=== PATIENT | male | born 1960 | race African-American/Black ===

== ENCOUNTER 2016-07-24 17:58 | Observation (INO) | payer OTHER ==
[~2016-07-24] VITALS: Ht 175.3 cm; Wt 88.5 kg
[~2016-07-24 17:58] MED LIST: ASPIR 8181 MG ORAL; AUGMENTIN 875-1 EAC1 ORAL; IBUPROFEN600 MG ORAL; INSULIN SUBQ; LISINOPRIL10 MG ORAL; METFORMIN HCL1000 M1 ORAL; RANITIDINE HCL150 MG ORAL; ZOFRAN ODT4 MG ORAL
[2016-07-24] MEDS ORDERED: Famotidine 20 MG/ 2ML VIAL IVP ONE (18:15)
[2016-07-24 18:52] LABS: BASOPHILS % (AUTO) 1.9 % (0.0-2.0); EOSINOPHILS % (AUTO) 1.8 % (0.0-3.0); LYMPHOCYTES % (AUTO) 34.1 % (20.0-45.0); MEAN CORPUSCULAR HEMOGLOBIN 25.4 PG (27.0-31.0); MEAN CORPUSCULAR HGB CONC 31.3 G/DL (32.0-36.0); MEAN CORPUSCULAR VOLUME 81 FL (80-99); MONOCYTES % (AUTO) 8.8 % (1.0-10.0); NEUTROPHILS % (AUTO) 53.4 % (45.0-75.0); PLATELET COUNT 317 K/UL (150-450); RED BLOOD COUNT 6.18 M/UL (4.70-6.10); RED CELL DISTRIBUTION WIDTH 13.1 % (11.6-14.8); WHITE BLOOD COUNT 8.8 K/UL (4.8-10.8)
[2016-07-24 18:53] LABS: APPEARANCE,URINE CLEAR; KETONES,URINE 3+ (NEGATIVE); LEUKOCYTE ESTERASE ,URINE NEGATIVE (NEGATIVE); NITRITE,URINE NEGATIVE (NEGATIVE); PH,URINE 6 (4.5-8.0); PROTEIN,URINE NEGATIVE (NEGATIVE); UROBILINOGEN,URINE NORMAL MG/DL (0.0-1.0)
[2016-07-24 19:17] LABS: TROPONIN I < 0.30 ng/mL (<=0.30)
[2016-07-24 19:21] LABS: ALANINE AMINOTRANSFERASE 10 U/L (3-41); ALBUMIN/GLOBULIN RATIO 0.9 (1.0-2.7); ANION GAP 22 (5-15); ASPARTATE AMINO TRANSFERASE 12 U/L (5-40); CARBON DIOXIDE 20 mEQ/L (20-30); CHLORIDE 90 mEQ/L (98-107); GLOMERULAR FILTRATION RATE > 60 mL/min (>60); HEMOLYSIS 18; LIPASE 26 U/L (< 60); POTASSIUM 3.9 mEQ/L (3.4-4.9); SODIUM 132 mEQ/L (135-145); TOTAL PROTEIN 8.2 g/dL (6.6-8.7)
[2016-07-24 19:34] VITALS: BP 127/93
[2016-07-24] MEDS ORDERED: SIMVASTATIN10 MG ORAL (19:40)
[2016-07-24] MEDS ORDERED: GLIPIZIDE5 MG ORAL (19:40)
--- NOTE | 2016-07-24 19:53 | Emergency Room Report ---
History of Present Illness General Chief Complaint: Abdominal Pain Source: Patient Present Illness HPI [id number] with IDDM presents with 1 week abd pain, nausea. Denies fever/chills, diarrhea. Didnt take QHS Insulin "because I didnt feel good." Denies urinary complaints, frequency. Per EMR, previous admits for DKA. Allergies: Coded Allergies: No Known Allergies (Verified Allergy, Unknown, 01/08/07) Patient History Past Medical History: DM Past Surgical History: none Pertinent Family History: none Social History: Denies: alcohol use, drug use, smoking Immunizations: UTD Reviewed Nursing Documentation: PMH: Agreed, PSxH: Agreed Nursing Documentation-PMH Past Medical History: No History, Except For Hx Hypertension: Yes Hx Diabetes: Yes - DM2 Review of Systems All Other Systems: negative except mentioned in HPI Physical Exam Vital Signs Date Time Temp Pulse Resp B/P Pulse Ox O2 Delivery O2 Flow Rate FiO2 07/24/16 18:10 98.8 117 15 125/106 99 Room Air Sp02 EP Interpretation: normal, abnormal General Appearance: normal inspection, well appearing, no apparent distress, alert, GCS 15, non-toxic Head: normocephalic, atraumatic Eyes: bilateral eye EOMI, bilateral eye PERRL ENT: normal ENT inspection, hearing grossly normal, normal voice Neck: normal inspection, full range of motion, supple, no bony tend Respiratory: normal inspection, lungs clear, normal breath sounds, no respiratory distress, no retraction, no wheezing Cardiovascular #1: regular rate, rhythm, no edema Gastrointestinal: normal inspection, normal bowel sounds, soft, no guarding, no hernia, other - RUQ ttp Genitourinary: no CVA tenderness Musculoskeletal: normal inspection, back normal, normal range of motion, Priscila' s Sign negative Neurologic: normal inspection, alert, oriented x3, responsive, 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 H&H stable. Elevated glucose with AG. ABG not-acidodic. Given history of DKA in the past will start with insulin gtt and IVF. However, glucose now 250 on insulin gtt and IVF. Will stop drip and admit to tele. CTAP: no acute pathology. Patient feels much better. Just minor epi pain. Endorsed to Dr Grewal and ETTA Marcelo at 919pm for med/surg admission. EKG Diagnostic Results Rate: tachycardiac, other - Multiple PVCs Rhythm: NSR ST Segments: no acute changes Rhythm Strip Diag. Results EP Interpretation: yes Rate: 97 Chest X-Ray Diagnostic Results EP Interpretation: Yes Findings: no consolidation, no effusion, no pneumothorax, no acute cardiopulmonary disease Number of Views: 1 Last Vital Signs Date Time Temp Pulse Resp B/P Pulse Ox O2 Delivery O2 Flow Rate FiO2 07/24/16 19:34 98.9 110 17 127/93 97 Room Air Status: improved Disposition: ADMITTED INPATIENT Condition: Serious Referrals: [facility],REFERRING (PCP) ALYSSA LUNA M.D. Jul 24, 2016 19:53
[2016-07-24 20:31] LABS: ABG ALLEN TEST POSITIVE; ABG BASE EXCESS -1.7; ABG PCO2 33.1 mmHg (35.0-45.0)
[2016-07-24 21:02] VITALS: BP 123/102
[2016-07-24] MEDS ORDERED: Morphine Sulfate 2mg/ml Inj IVP PRN (21:45)
[2016-07-24 22:19] LABS: ANION GAP 18 (5-15); CALCIUM 8.7 mg/dL (8.6-10.2); CARBON DIOXIDE 22 mEQ/L (20-30); CHLORIDE 95 mEQ/L (98-107); CREATININE 0.8 mg/dL (0.7-1.2); GLOMERULAR FILTRATION RATE > 60 mL/min (>60); HEMOLYSIS 0; POTASSIUM 3.8 mEQ/L (3.4-4.9); SODIUM 135 mEQ/L (135-145)
[2016-07-24] MEDS: Pantoprazole Inj IVP SCH (23:40)
[2016-07-24 23:59] VITALS: BP 125/85
[2016-07-25 01:55] VITALS: BP 134/79
[2016-07-25 04:00] VITALS: BP 138/79
[2016-07-25] MEDS ORDERED: metFORMIN 500mg tab ORAL SCH (06:30)
[2016-07-25] MEDS: NovoLOG Insulin Flexpen SUBQ SCH ×2 (07:21→12:15)
[2016-07-25 08:00] VITALS: BP 147/91
[2016-07-25] MEDS ORDERED: Aspirin EC 81mg tab ORAL SCH (09:00)
[2016-07-25] MEDS ORDERED: Lisinopril 10mg tab ORAL SCH (09:00)
[2016-07-25] MEDS ORDERED: Heparin 5000 units/ml inj SUBQ SCH (09:00)
--- NOTE | 2016-07-25 09:56 | Diagnostic Imaging Report ---
Indication: Abdominal pain Technique: CT of the abdomen and pelvis utilizing automated exposure control with intravenous contrast. Venous scanning performed. CT dose: Total DLP 970 mGycm; CTDI vol 17.7 mGy Comparison: 07/05/15 Findings: Lung bases are clear. The liver, adrenal glands, spleen and pancreas are unremarkable. No CT evident gallstones are identified. There is a stable small cyst in the right kidney. Atherosclerotic changes are present. There is limited evaluation of the bowel without oral contrast. There is no mechanical small obstruction. The appendix is normal. There is colonic diverticulosis without diverticulitis. There is a small fat-containing left inguinal hernia. The prostate is markedly enlarged measuring 6.7 x 5.8 cm. There is mild apparent thickening versus underdistention of the bladder wall. The osseous structures demonstrate no acute abnormality. Impression: Markedly enlarged prostate. Correlation with PSA recommended with further evaluation as indicated. Mild mural thickening versus underdistention of the bladder wall may be secondary to chronic outlet obstruction although cystitis not excluded and clinical correlation recommended. Colonic diverticulosis without diverticulitis. Other stable findings as above. The CT scanner at [facility] is accredited by the [employer] and the scans are performed using protocols designed to limit radiation exposure to as low as reasonably achievable to attain images of sufficient resolution adequate for diagnostic evaluation.
[2016-07-25 09:57] LABS: EOSINOPHILS % (AUTO) 2.9 % (0.0-3.0); LYMPHOCYTES % (AUTO) 33.9 % (20.0-45.0); MEAN CORPUSCULAR HEMOGLOBIN 25.3 PG (27.0-31.0); MEAN CORPUSCULAR VOLUME 82 FL (80-99); MEAN PLATELET VOLUME 9.6 FL (6.5-10.1); MONOCYTES % (AUTO) 11.5 % (1.0-10.0); NEUTROPHILS % (AUTO) 48.7 % (45.0-75.0); PLATELET COUNT 267 K/UL (150-450); RED BLOOD COUNT 5.26 M/UL (4.70-6.10); RED CELL DISTRIBUTION WIDTH 13.6 % (11.6-14.8); WHITE BLOOD COUNT 6.5 K/UL (4.8-10.8)
[2016-07-25] MEDS: Pantoprazole Inj IVP SCH (10:04)
[2016-07-25 10:20] LABS: ANION GAP 12 (5-15); CALCIUM 8.9 mg/dL (8.6-10.2); CARBON DIOXIDE 26 mEQ/L (20-30); CHLORIDE 98 mEQ/L (98-107); CREATININE 0.8 mg/dL (0.7-1.2); GLOMERULAR FILTRATION RATE > 60 mL/min (>60); HEMOLYSIS 1; POTASSIUM 3.9 mEQ/L (3.4-4.9); SODIUM 136 mEQ/L (135-145)
--- NOTE | 2016-07-25 10:20 | Diagnostic Imaging Report ---
Indication: Shortness of breath Technique: XRAY CHEST 1 V Comparison: 04/02/15 Findings: Cardiomediastinal silhouette is stable. There is no consolidation or pleural effusion. Osseous structures are stable. Clips are seen in the left neck. Impression: No acute cardiopulmonary disease.
[2016-07-25 12:00] VITALS: BP 144/93
[2016-07-25] MEDS ORDERED: Tubing IV Secondary IV ONE (12:59)
[2016-07-25] MEDS ORDERED: D5 1/2NS 1000ml IV ONE (12:59)
--- NOTE | 2016-07-25 15:25 | History and Physical ---
History of Present Illness General Date patient seen: Jul 25, 2016 Reason for Hospitalization: Abdominal Pain Present Illness Allergies: Coded Allergies: No Known Allergies (Verified Allergy, Unknown, 01/08/07) Medication History Scheduled Aspirin* (Aspir 81*), 81 MG ORAL DAILY, (Reported) Lisinopril* (Lisinopril*), 10 MG ORAL DAILY, (Reported) Metformin Hcl* (Metformin Hcl*), 1,000 MG ORAL BID, (Reported) Simvastatin (Zocor), 10 MG ORAL BEDTIME, (Reported) [Insulin], 34 SUBQ QHS, (Reported) Discontinued Medications Ondansetron Odt* (Zofran Odt*), 4 MG ORAL Q6H PRN for Nausea & Vomiting Discontinued Reason: Therapy completed Ranitidine Hcl* (Zantac*), 150 MG ORAL TWICE A DAY Discontinued Reason: Therapy completed Patient History Healthcare decision maker SELF, ESCUDERO,ERICA Resuscitation status Full Code Advanced Directive on File N/A Physical Exam Last 24 Hour Vital Signs Date Time Temp Pulse Resp B/P Pulse Ox O2 Delivery O2 Flow Rate FiO2 07/25/16 12:00 97.6 100 20 144/93 97 Room Air 07/25/16 09:00 147/91 07/25/16 08:00 97.0 86 21 147/91 99 Room Air 07/25/16 04:00 97.6 83 18 138/79 Room Air 07/25/16 01:55 97.3 86 20 134/79 98 Room Air 07/25/16 00:15 98.9 89 20 125/85 99 Room Air 07/24/16 23:59 98.9 89 20 125/85 99 Room Air 07/24/16 21:02 98.9 97 12 123/102 100 Room Air 07/24/16 19:34 98.9 110 17 127/93 97 Room Air 07/24/16 18:10 98.8 117 15 125/106 99 Room Air Intake and Output 07/24/16 07/25/16 19:00 07:00 Intake Total 1320 ml Balance 1320 ml Intake Oral 720 ml IV Total 600 ml # Voids 1 2 Laboratory Tests Test 07/24/16 18:28 07/24/16 18:55 07/24/16 19:26 07/24/16 21:21 White Blood Count 8.8 K/UL (4.8-10.8) Red Blood Count 6.18 M/UL (4.70-6.10) H Hemoglobin 15.7 G/DL (14.2-18.0) Hematocrit 50.2 % (42.0-52.0) Mean Corpuscular Volume 81 FL (80-99) Mean Corpuscular Hemoglobin 25.4 PG (27.0-31.0) L Mean Corpuscular Hemoglobin Concent 31.3 G/DL (32.0-36.0) L Red Cell Distribution Width 13.1 % (11.6-14.8) Platelet Count 317 K/UL (150-450) Mean Platelet Volume 9.0 FL (6.5-10.1) Neutrophils (%) (Auto) 53.4 % (45.0-75.0) Lymphocytes (%) (Auto) 34.1 % (20.0-45.0) Monocytes (%) (Auto) 8.8 % (1.0-10.0) Eosinophils (%) (Auto) 1.8 % (0.0-3.0) Basophils (%) (Auto) 1.9 % (0.0-2.0) Urine Color Pale yellow Urine Appearance Clear Urine pH 6 (4.5-8.0) Urine Specific [place] 1.015 (1.005-1.035) Urine Protein Negative (NEGATIVE) Urine Glucose (UA) 4+ (NEGATIVE) H Urine Ketones 3+ (NEGATIVE) H Urine Occult Blood Negative (NEGATIVE) Urine Nitrite Negative (NEGATIVE) Urine Bilirubin Negative (NEGATIVE) Urine Urobilinogen Normal MG/DL (0.0-1.0) Urine Leukocyte Esterase Negative (NEGATIVE) Sodium Level 132 mEQ/L (135-145) L 135 mEQ/L (135-145) Potassium Level 3.9 mEQ/L (3.4-4.9) 3.8 mEQ/L (3.4-4.9) Chloride Level 90 mEQ/L (98-107) L 95 mEQ/L (98-107) L Carbon Dioxide Level 20 mEQ/L (20-30) 22 mEQ/L (20-30) Anion Gap 22 (5-15) H 18 (5-15) H Blood Urea Nitrogen 14 mg/dL (7-23) 13 mg/dL (7-23) Creatinine 1.0 mg/dL (0.7-1.2) 0.8 mg/dL (0.7-1.2) Estimat Glomerular Filtration Rate > 60 mL/min (>60) > 60 mL/min (>60) Glucose Level 336 mg/dL (74-106) H 271 mg/dL (74-106) H Calcium Level 10.0 mg/dL (8.6-10.2) 8.7 mg/dL (8.6-10.2) Total Bilirubin 0.7 mg/dL (0.0-1.2) Aspartate Amino Transf (AST/SGOT) 12 U/L (5-40) Alanine Aminotransferase (ALT/SGPT) 10 U/L (3-41) Alkaline Phosphatase 76 U/L (40-129) Troponin I < 0.30 ng/mL (<=0.30) Total Protein 8.2 g/dL (6.6-8.7) Albumin 4.0 g/dL (3.5-5.2) Globulin 4.2 g/dL Albumin/Globulin Ratio 0.9 (1.0-2.7) L Lipase 26 U/L (< 60) Urine Opiates Screen Negative (NEGATIVE) Urine Barbiturates Screen Negative (NEGATIVE) Phencyclidine (PCP) Screen Negative (NEGATIVE) Urine Amphetamines Screen Positive (NEGATIVE) H Urine Benzodiazepines Screen Negative (NEGATIVE) Urine Cocaine Screen Negative (NEGATIVE) Urine Marijuana (THC) Screen Positive (NEGATIVE) H Arterial Blood pH 7.434 (7.350-7.450) Arterial Blood Partial Pressure CO2 33.1 mmHg (35.0-45.0) L Arterial Blood Partial Pressure O2 135.4 mmHg (75.0-100.0) H Arterial Blood HCO3 21.7 mmol/L (22.0-26.0) L Arterial Blood Oxygen Saturation 98.3 % (92.0-98.0) H Arterial Blood Base Excess -1.7 Usama Test Positive Acetone Level Negative (NEGATIVE) Test 07/25/16 09:15 White Blood Count 6.5 K/UL (4.8-10.8) Red Blood Count 5.26 M/UL (4.70-6.10) Hemoglobin 13.3 G/DL (14.2-18.0) L Hematocrit 43.0 % (42.0-52.0) Mean Corpuscular Volume 82 FL (80-99) Mean Corpuscular Hemoglobin 25.3 PG (27.0-31.0) L Mean Corpuscular Hemoglobin Concent 31.0 G/DL (32.0-36.0) L Red Cell Distribution Width 13.6 % (11.6-14.8) Platelet Count 267 K/UL (150-450) Mean Platelet Volume 9.6 FL (6.5-10.1) Neutrophils (%) (Auto) 48.7 % (45.0-75.0) Lymphocytes (%) (Auto) 33.9 % (20.0-45.0) Monocytes (%) (Auto) 11.5 % (1.0-10.0) H Eosinophils (%) (Auto) 2.9 % (0.0-3.0) Basophils (%) (Auto) 3.0 % (0.0-2.0) H Sodium Level 136 mEQ/L (135-145) Potassium Level 3.9 mEQ/L (3.4-4.9) Chloride Level 98 mEQ/L (98-107) Carbon Dioxide Level 26 mEQ/L (20-30) Anion Gap 12 (5-15) Blood Urea Nitrogen 9 mg/dL (7-23) Creatinine 0.8 mg/dL (0.7-1.2) Estimat Glomerular Filtration Rate > 60 mL/min (>60) Glucose Level 253 mg/dL (74-106) H Calcium Level 8.9 mg/dL (8.6-10.2) Height (Feet): 5 Height (Inches): 9.00 Weight (Pounds): 195 Medications Current Medications Medications (Trade) Dose Ordered Sig/Pasha Route PRN Reason Start Time Stop Time Status Last Admin Dose Admin Acetaminophen (Tylenol) 650 mg Q4H PRN ORAL Mild Pain (Pain Scale 1-3) 07/24/16 21:45 08/23/16 21:44 Acetaminophen (Tylenol) 650 mg Q4H PRN ORAL fever 07/24/16 21:45 08/23/16 21:44 Aspirin (Ecotrin) 81 mg DAILY ORAL 07/25/16 09:00 08/24/16 08:59 07/25/16 09:01 Atorvastatin Calcium (Lipitor) 10 mg BEDTIME ORAL 07/25/16 21:00 08/24/16 20:59 Dextrose (Dextrose 50%) STAT PRN IV Hypoglycemia 07/24/16 21:45 08/23/16 21:44 Heparin Sodium (Porcine) (Heparin 5000 units/ml) 5,000 units EVERY 12 HOURS SUBQ 07/25/16 09:00 08/24/16 08:59 Insulin Aspart (NovoLOG) BEFORE MEALS AND HS SUBQ 07/25/16 06:30 08/24/16 06:29 07/25/16 12:15 Insulin Detemir (Levemir) 10 units BEDTIME SUBQ 07/25/16 21:00 08/24/16 20:59 Lisinopril (Zestril) 10 mg DAILY ORAL 07/25/16 09:00 08/24/16 08:59 07/25/16 09:00 Metformin HCl (Glucophage) 1,000 mg BID@0630,1630 ORAL 07/25/16 06:30 08/24/16 06:29 07/25/16 07:05 Morphine Sulfate (Morphine Sulfate) 2 mg Q4H PRN IVP Severe Pain (Pain Scale 7-10) 07/24/16 21:45 07/31/16 21:44 Ondansetron HCl (Zofran) 4 mg Q6H PRN IVP Nausea & Vomiting 07/24/16 21:45 08/23/16 21:44 Pantoprazole 40 mg 40 mg EVERY 12 HOURS IVP 07/24/16 22:00 08/23/16 21:59 07/25/16 10:04 Sodium Chloride (0.45% NS 1000ml) 1,000 ml @ 80 mls/hr [id number] IV 07/24/16 22:00 08/23/16 21:59 07/24/16 23:39 Neha Holguin N.P. Jul 25, 2016 15:25
[2016-07-25] MEDS ORDERED: Levemir Flexpen SUBQ SCH (21:00)
--- NOTE | 2016-07-27 14:08 | Discharge Summary ---
Discharge Summary Hospital Course Date of Admission Jul 24, 2016 at 20:05 Date of Discharge Jul 25, 2016 at 13:00 Admitting Diagnosis HYPERGLYCEMIA HPI Caden Cortez is a 56 year old male who was admitted on Jul 24, 2016 at 20:05 for Hyperglycemia Hospital Course dc summary #[id number] Discharge Medications Continued Medications: Aspirin* (Aspir 81*) 81 Mg Tablet.dr 81 MG ORAL DAILY, TAB Lisinopril* (Lisinopril*) 10 Mg Tablet 10 MG ORAL DAILY, TAB Metformin Hcl* (Metformin Hcl*) 1,000 Mg Tablet 1000 MG ORAL BID, TAB Simvastatin (Zocor) 10 Mg Tablet 10 MG ORAL BEDTIME, TAB [Insulin] () 34 SUBQ QHS Discharge Condition Upon Discharge: stable Discharge Disposition Patient was discharged to Home (01) Discharge Diagnoses: Discharge Instructions Discharge Instructions Special Instructions I have been assigned to complete a D/C Summary on this account. I was not involved in the patient management Aundrea Lorenzo NP (Vanchtein) Jul 27, 2016 14:08
--- NOTE | 2016-07-28 03:08 | Discharge Summary 2 SIG ---
DATE OF ADMISSION: 07/24/2016 DATE OF DISCHARGE: 07/25/2016 ADMITTING PHYSICIAN: Kings Grewal MD. REASON FOR ADMISSION : 56-year-old male, presented to the emergency room with abdominal pain and nausea for one week. He denied fevers, chills, or diarrhea. He stated that he did not take his night insulin because he did not feel good. He denied urinary complaints such as frequency, burning or flank pain. The patient had history of DKA in the past, patient with history of insulin- dependent diabetes mellitus. Workup in the emergency room revealed elevated glucose. ECG with sinus tachycardia. Blood pressure was stable. No fever. Pulse oximetry was stable on room air. ABG was nonacidotic. No leukocytosis, stable hemoglobin and hematocrit. The patient was initially started on insulin drip and IV fluids due to the history of DKA in the past. However, when the glucose was down to 250, insulin drip was discontinued. The patient admitted to telemetry floor for further management. CT of the abdomen and pelvis revealed diverticulosis without evidence of diverticulitis, marked enlargement of the prostate. Urinalysis was negative. The urine toxicology screen was positive for amphetamines and marijuana. Clinically, the patient was not in diabetic ketoacidosis. Patient was admitted to telemetry for further management. ADMITTING DIAGNOSES: 1. Hyperglycemia. 2. Dehydration. 3. Right upper quadrant abdominal pain. 4. Diabetes mellitus type 1. HOSPITAL COURSE: The patient admitted to telemetry floor. The patient was on the IV fluids. Blood sugar was managed with long acting Levemir as well as the sliding scale of insulin . Blood pressure was managed with GIANNA inhibitor. Zocor was continued. Chest x-ray was negative for any acute cardiopulmonary disease. Urinalysis was negative. Pain management was addressed. Bowel regimen provided. CT abdomen and pelvis revealed no evidence of acute abdominal pathology. The patient was able to tolerate diet. Antiemetic provided as needed. No evidence of emesis. No complaints of nausea. Due to the rapid and unexpected improvement in patient condition, the patient was discharged in 1 day. DISCHARGE DIAGNOSES: 1. Hyperglycemia. 2. Diabetes mellitus. type 1 3. Dehydration. 4. Right upper quadrant abdominal pain. 5. Hypertension. 6. Hyperlipidemia. 7. History of diabetic ketoacidosis in the past. DISCHARGE MEDICATIONS: See medication reconciliation. DISCHARGE INSTRUCTIONS: The patient to follow up with the primary medical doctor. Kings Grewal MD. I have been assigned to dictate discharge summary on this account and I was not involved in the patient's management. Aundrea Romeosanjuanita NTonnyPTonny DR: Srinivaasn JOB#: [id number] CC: MAIA
--- NOTE | 2016-07-28 15:23 | Diagnostic Imaging Report ---
APPROVED REPORT CPT Code: 24869 Present Symptoms Lower Extremity Pain: Bilateral BILATERAL: Imaging reveals a patent deep venous system bilaterally. There is no evidence of thrombus within the femoral, popliteal or tibial segments. The greater saphenous veins are also within normal limits. Doppler indicates normal spontaneous flow within these segments.
--- NOTE | 2016-07-29 16:18 | Cardiology Report ---
APPROVED REPORT EKG Measurement Heart [id number] Sinus tachycardia with occasional premature ventricular complexes Right atrial enlargement Left ventricular hypertrophy with repolarization abnormality Abnormal ECG
== END 2016-07-25 13:00 | disposition home or self-care (01) ==
LOC: ENRESERVTM → ENRESERVDT → EMR 18:22 → EDBEDREQSVC 19:47 → EDBEDREQ 19:47 → ICU 20:05 → INTOOBSV 20:05 → OBSVTOIN 20:05 → EDBEDREQ 20:32 → EDBEDREQSVC 22:35 → EDBEDREQ 23:52 → 4W 07-25 00:07
DX: E10.65 Type 1 diabetes mellitus with hyperglycemia (principal); E86.0 Dehydration; R10.11 Right upper quadrant pain; I10 Essential (primary) hypertension; E78.5 Hyperlipidemia, unspecified; Z79.4 Long term (current) use of insulin; Z79.84 Long term (current) use of oral hypoglycemic drugs; Z79.82 Long term (current) use of aspirin
CPT/HCPCS: 36415; 36600; 71010; 74177; 80048; 80053; 80300; 81003; 82009; 82803; 82962; 83690; 84484; 85025; 87081; 93005; 93970; 99285; C9113; J1815; J1817; Q9967; S0028; S5561; G0378

== ENCOUNTER 2017-01-15 12:01 | Emergency (ER) | payer OTHER ==
[~2017-01-15] VITALS: Ht 182.9 cm; Wt 79.4 kg
[~2017-01-15 12:01] MED LIST changes: +GLIPIZIDE5 MG ORAL; +SIMVASTATIN10 MG ORAL
--- NOTE | 2017-01-15 12:30 | Emergency Room Report ---
History of Present Illness General Chief Complaint: Abdominal Pain Source: Patient Present Illness HPI The patient is a 56-year-old male with a history of insulin-dependent diabetes and GERD presenting for abdominal pain x2 days. He states that he has been using his insulin and oral diabetic medication as directed but stopped taking his acid medication recently. He states it was causing him to have upset stomach. Pain is described as a 10/10 burning sensation to the mid upper abdomen and radiates to the mid chest. Worse with eating. He also admits to nausea but denies vomiting. He denies any other symptoms including fever, chills, shortness of breath, back pain Allergies: Coded Allergies: No Known Allergies (Verified Allergy, Unknown, 01/08/07) Patient History Past Medical History: see triage record Pertinent Family History: none Reviewed Nursing Documentation: PMH: Agreed, PSxH: Agreed Nursing Documentation-PMH Hx Cardiac Problems: Yes Hx Hypertension: Yes Hx Diabetes: Yes Hx Cancer: No Hx Neurological Problems: No Review of Systems All Other Systems: negative except mentioned in HPI Physical Exam Vital Signs Date Time Temp Pulse Resp B/P (MAP) Pulse Ox O2 Delivery O2 Flow Rate FiO2 01/15/17 12:07 97.5 104 18 133/75 98 Sp02 EP Interpretation: reviewed, normal General Appearance: no apparent distress, alert, GCS 15, non-toxic Head: normocephalic, atraumatic Eyes: bilateral eye normal inspection, bilateral eye PERRL ENT: hearing grossly normal, normal pharynx, no angioedema, normal voice Neck: full range of motion, supple/symm/no masses Respiratory: chest non-tender, lungs clear, normal breath sounds, speaking full sentences Cardiovascular #1: regular rate, rhythm, no edema Gastrointestinal: normal inspection, normal bowel sounds, no guarding, tenderness - epigastric Rectal: deferred Genitourinary: normal inspection, no CVA tenderness Musculoskeletal: back normal, gait/station normal, normal range of motion, non- tender Neurologic: alert, oriented x3, responsive, motor strength/tone normal, sensory intact, speech normal Psychiatric: judgement/insight normal, memory normal, mood/affect normal, no suicidal/homicidal ideation Skin: normal color, no rash, warm/dry, well hydrated Lymphatic: no adenopathy Medical Decision Making PA Attestation Dr. Quiroz is my supervising physician. Patient management was discussed with my supervising physician Diagnostic Impression: Primary Impression: Gastritis Qualified Codes: K29.70 - Gastritis, unspecified, without bleeding Additional Impression: Diabetes Qualified Codes: E11.8 - Type 2 diabetes mellitus with unspecified complications ER Course The patient is a 56-year-old male presenting for abdominal pain Differential diagnoses considered but not limited to: GERD, gastritis, gastric ulcer, gastroenteritis Physical exam: No apparent distress RRR. Lungs are clear to auscultation bilaterally Abdomen is soft. Normal bowel sounds. Nondistended. There is tenderness to palpation over epigastric region only The patient is given IV fluids, pepcid, and zofran and feels significantly better. He was told he needs to take his GERD medications at home. He agrees. ER precautions given Laboratory Tests Test 01/15/17 12:33 01/15/17 14:15 White Blood Count 9.5 K/UL (4.8-10.8) Red Blood Count 6.05 M/UL (4.70-6.10) Hemoglobin 15.8 G/DL (14.2-18.0) Hematocrit 50.1 % (42.0-52.0) Mean Corpuscular Volume 83 FL (80-99) Mean Corpuscular Hemoglobin 26.2 PG (27.0-31.0) L Mean Corpuscular Hemoglobin Concent 31.6 G/DL (32.0-36.0) L Red Cell Distribution Width 12.6 % (11.6-14.8) Platelet Count 311 K/UL (150-450) Mean Platelet Volume 10.8 FL (6.5-10.1) H Neutrophils (%) (Auto) 59.3 % (45.0-75.0) Lymphocytes (%) (Auto) 29.3 % (20.0-45.0) Monocytes (%) (Auto) 7.5 % (1.0-10.0) Eosinophils (%) (Auto) 1.3 % (0.0-3.0) Basophils (%) (Auto) 2.6 % (0.0-2.0) H Prothrombin Time 10.2 SEC (9.30-11.50) Prothrombin Time INR 1.0 (0.9-1.1) PTT 29 SEC (23-33) Sodium Level 131 mEQ/L (135-145) L Potassium Level 4.6 mEQ/L (3.4-4.9) Chloride Level 89 mEQ/L (98-107) L Carbon Dioxide Level 23 mEQ/L (20-30) Anion Gap 19 (5-15) H Blood Urea Nitrogen 18 mg/dL (7-23) Creatinine 1.0 mg/dL (0.7-1.2) Estimate Glomerular Filtration Rate > 60 mL/min (>60) Glucose Level 306 mg/dL (74-106) H Calcium Level 10.0 mg/dL (8.6-10.2) Total Bilirubin 0.6 mg/dL (0.0-1.2) Aspartate Amino Transferase (AST) 11 U/L (5-40) Alanine Aminotransferase (ALT) 9 U/L (3-41) Alkaline Phosphatase 79 U/L (40-129) Troponin I < 0.30 ng/mL (<=0.30) Total Protein 8.5 g/dL (6.6-8.7) Albumin 4.4 g/dL (3.5-5.2) Globulin 4.1 g/dL Albumin/Globulin Ratio 1.0 (1.0-2.7) Lipase 35 U/L (< 60) Urine Color Pale yellow Urine Appearance Clear Urine pH 6 (4.5-8.0) Urine Specific [place] 1.015 (1.005-1.035) Urine Protein 1+ (NEGATIVE) H Urine Glucose (UA) 4+ (NEGATIVE) H Urine Ketones 4+ (NEGATIVE) H Urine Occult Blood 1+ (NEGATIVE) H Urine Nitrite Negative (NEGATIVE) Urine Bilirubin Negative (NEGATIVE) Urine Urobilinogen Normal MG/DL (0.0-1.0) Urine Leukocyte Esterase Negative (NEGATIVE) Urine RBC 0-2 /HPF (0 - 0) H Urine WBC 0-2 /HPF (0 - 0) Urine Squamous Epithelial Cells Occasional /LPF Urine Bacteria Occasional /HPF (NONE) Lab Results Impression Glucose significantly elevated. otherwise labs unremarkable Chest X-Ray Diagnostic Results Chest X-Ray Diagnostic Results : Chest X-Ray Ordered: Yes # of Views/Limited/Complete: 1 View Indication: Other - abd pain EP Interpretation: Yes Interpretation: no consolidation, no effusion, no pneumothorax, no acute cardiopulmonary disease, other - no free air Impression: No acute disease Electronically Signed by: AZUL Escamilla Scribe Text My and my supervising physician's interpretation of the chest xrays are there is no consolidation, no effusion, no free air, no acute cardiopulmonary disease , no pneumothorax Last Vital Signs Date Time Temp Pulse Resp B/P (MAP) Pulse Ox O2 Delivery O2 Flow Rate FiO2 01/15/17 12:07 97.5 104 18 133/75 98 Status: improved Disposition: HOME, SELF-CARE Condition: Improved Scripts Omeprazole (OMEPRAZOLE) 20 Mg Capsule.dr 20 MG ORAL DAILY, #30 CAP Prov: PIA KUMAR 01/15/17 Famotidine (PEPCID) 40 Mg Tablet 40 MG PO DAILY, #7 TAB 0 Refills Prov: PIA KUMAR 01/15/17 PIA KUMAR Jan 15, 2017 12:30
[2017-01-15 13:06] VITALS: BP 181/98
[2017-01-15 13:14] LABS: BASOPHILS % (AUTO) 2.6 % (0.0-2.0); EOSINOPHILS % (AUTO) 1.3 % (0.0-3.0); LYMPHOCYTES % (AUTO) 29.3 % (20.0-45.0); MEAN CORPUSCULAR HEMOGLOBIN 26.2 PG (27.0-31.0); MEAN CORPUSCULAR HGB CONC 31.6 G/DL (32.0-36.0); MEAN CORPUSCULAR VOLUME 83 FL (80-99); MEAN PLATELET VOLUME 10.8 FL (6.5-10.1); MONOCYTES % (AUTO) 7.5 % (1.0-10.0); NEUTROPHILS % (AUTO) 59.3 % (45.0-75.0); PLATELET COUNT 311 K/UL (150-450); RED BLOOD COUNT 6.05 M/UL (4.70-6.10); RED CELL DISTRIBUTION WIDTH 12.6 % (11.6-14.8); WHITE BLOOD COUNT 9.5 K/UL (4.8-10.8)
[2017-01-15 13:23] LABS: PROTHROMBIN TIME 10.2 SEC (9.30-11.50)
[2017-01-15 13:24] LABS: TROPONIN I < 0.30 ng/mL (<=0.30)
[2017-01-15 13:27] LABS: ALANINE AMINOTRANSFERASE 9 U/L (3-41); ANION GAP 19 (5-15); ASPARTATE AMINO TRANSFERASE 11 U/L (5-40); CARBON DIOXIDE 23 mEQ/L (20-30); CHLORIDE 89 mEQ/L (98-107); GLOMERULAR FILTRATION RATE > 60 mL/min (>60); HEMOLYSIS 6; LIPASE 35 U/L (< 60); POTASSIUM 4.6 mEQ/L (3.4-4.9); SODIUM 131 mEQ/L (135-145); TOTAL PROTEIN 8.5 g/dL (6.6-8.7)
[2017-01-15] MEDS ORDERED: Morphine Sulfate 4mg/ml Inj IVP ONE (13:45)
[2017-01-15] MEDS ORDERED: PEPCID40 MG PO (14:07)
[2017-01-15] MEDS ORDERED: OMEPRAZOLE20 M2 ORAL (14:07)
[2017-01-15 14:29] LABS: APPEARANCE,URINE CLEAR; KETONES,URINE 4+ (NEGATIVE); LEUKOCYTE ESTERASE ,URINE NEGATIVE (NEGATIVE); NITRITE,URINE NEGATIVE (NEGATIVE); PH,URINE 6 (4.5-8.0); PROTEIN,URINE 1+ (NEGATIVE); UROBILINOGEN,URINE NORMAL MG/DL (0.0-1.0)
[2017-01-15 14:32] LABS: BACTERIA,URINE OCCASIONAL /HPF; RBC,URINE 0-2 /HPF (0 - 0); SQUAMOUS EPITHELIAL CELL,UR OCCASIONAL /LPF (NONE/OCC); WBC,URINE 0-2 /HPF (0 - 0)
[2017-01-15 14:43] VITALS: BP 134/85
--- NOTE | 2017-01-15 16:08 | Diagnostic Imaging Report ---
Indication: Chest pain Technique: One view of the chest Comparison: none Findings: Lungs and pleural spaces are clear. Heart size is normal. The aorta is tortuous. There is no significant interim change Impression: No acute process
== END 2017-01-15 14:50 | disposition home or self-care (01) ==
LOC: EMR 12:55
DX: K29.70 Gastritis, unspecified, without bleeding (principal); E11.9 Type 2 diabetes mellitus without complications; Z79.4 Long term (current) use of insulin; Z79.84 Long term (current) use of oral hypoglycemic drugs; Z86.79 Personal history of other diseases of the circulatory system; I10 Essential (primary) hypertension
CPT/HCPCS: 36415; 71010; 80053; 81003; 83690; 84484; 85025; 85610; 85730; 96361; 96374; 96375; 99284; J2270; J2405; S0028

== ENCOUNTER 2018-04-09 06:31 | Inpatient (IN) | payer OTHER ==
[2018-04-09] VITALS (13 sets, daily range): BP systolic 124–162; BP diastolic 67–97
[~2018-04-09] VITALS: Ht 175.3 cm; Wt 87.1 kg
[~2018-04-09 06:31] MED LIST changes: +OMEPRAZOLE20 M2 ORAL; +PEPCID40 MG PO
[2018-04-09] MEDS ORDERED: DiphenhydrAMINE 50mg/ml Inj IVP ONE (07:00)
--- NOTE | 2018-04-09 07:14 | Emergency Room Report ---
History of Present Illness General Chief Complaint: General Complaint Source: Patient Present Illness HPI Patient present with complaints of elevated high blood pressure Also increased nausea vomiting Patient has history of insulin-dependent diabetes Has not checked his sugar over the past several months Denies any chest pain or shortness of breath denies any back or flank pain he has been having increased urination And increased thirst Patient is fairly noncompliant with medications Denies any neck pain or photophobia Patient also has history of gastritis and reports epigastric pain Allergies: Coded Allergies: No Known Allergies (Verified Allergy, Unknown, 01/08/07) Patient History Past Medical History: see triage record Pertinent Family History: none Reviewed Nursing Documentation: PMH: Agreed; PSxH: Agreed Nursing Documentation-PMH Past Medical History: No Stated History Hx Cardiac Problems: Yes Hx Hypertension: Yes Hx Diabetes: Yes Hx Cancer: No Hx Neurological Problems: No Review of Systems All Other Systems: negative except mentioned in HPI Physical Exam Vital Signs Date Time Temp Pulse Resp B/P (MAP) Pulse Ox O2 Delivery O2 Flow Rate FiO2 04/09/18 06:36 97.9 134 20 142/91 99 Room Air 04/09/18 06:47 99 Sp02 EP Interpretation: reviewed, normal General Appearance: well appearing, no apparent distress Head: normocephalic, atraumatic Eyes: bilateral eye PERRL, bilateral eye EOMI ENT: hearing grossly normal, TMs + canals normal, uvula midline, dry mucus membranes Neck: full range of motion, supple, no meningismus, no bony tend Respiratory: lungs clear, normal breath sounds, no rhonchi, no respiratory distress, no retraction, no accessory muscle use Cardiovascular #1: normal peripheral pulses, no edema, no gallop, no JVD, no murmur, tachycardia Gastrointestinal: normal bowel sounds, non tender, soft, no mass, no organomegaly, non-distended, no guarding, no hernia, no pulsatile mass, no rebound Genitourinary: no CVA tenderness Musculoskeletal: normal inspection Neurologic: oriented x3, responsive, supervisor spinning III-XII nml as tested, motor strength/ tone normal, sensory intact Psychiatric: mood/affect normal Skin: normal color, no rash, warm/dry, palpation normal Lymphatic: normal inspection, no adenopathy Procedures Critical Care Time Critical Care Time 50 minutes for multiple re-evaluations Critical findings with acidosis and DKA requiring multiple ongoing examinations Not including any procedural time Medical Decision Making Diagnostic Impression: Primary Impression: DKA (diabetic ketoacidoses) ER Course Multiple differentials considered patient arrives tachycardic and appears dehydrated Glucose levels are elevated and Accu-Chek is reading hi Patient initiated on IV aggressive hydration Requiring insulin drip Patient is severely acidotic also showing positive cocaine likely contributing to some of the pathology Patient continues hydration Insulin drip and requires ICU admission Labs Test 04/09/18 06:50 White Blood Count 16.1 K/UL (4.8-10.8) Red Blood Count 6.36 M/UL (4.70-6.10) Hemoglobin 16.1 G/DL (14.2-18.0) Hematocrit 53.2 % (42.0-52.0) Mean Corpuscular Volume 84 FL (80-99) Mean Corpuscular Hemoglobin 25.3 PG (27.0-31.0) Mean Corpuscular Hemoglobin Concent 30.3 G/DL (32.0-36.0) Red Cell Distribution Width 12.5 % (11.6-14.8) Platelet Count 297 K/UL (150-450) Mean Platelet Volume 8.8 FL (6.5-10.1) Neutrophils (%) (Auto) 82.4 % (45.0-75.0) Lymphocytes (%) (Auto) 10.1 % (20.0-45.0) Monocytes (%) (Auto) 6.0 % (1.0-10.0) Eosinophils (%) (Auto) 0.0 % (0.0-3.0) Basophils (%) (Auto) 1.5 % (0.0-2.0) Urine Color Pale yellow Urine Appearance Clear Urine pH 5 (4.5-8.0) Urine Specific [place] 1.015 (1.005-1.035) Urine Protein Negative (NEGATIVE) Urine Glucose (UA) 4+ (NEGATIVE) Urine Ketones 4+ (NEGATIVE) Urine Blood 1+ (NEGATIVE) Urine Nitrite Negative (NEGATIVE) Urine Bilirubin Negative (NEGATIVE) Urine Urobilinogen Normal MG/DL (0.0-1.0) Urine Leukocyte Esterase Negative (NEGATIVE) Urine RBC 0-2 /HPF (0 - 0) Urine WBC 0 /HPF (0 - 0) Urine Squamous Epithelial Cells None /LPF (NONE/OCC) Urine Bacteria None /HPF (NONE) Sodium Level 124 MMOL/L (136-145) Potassium Level 4.4 MMOL/L (3.5-5.1) Chloride Level 83 MMOL/L (98-107) Carbon Dioxide Level 15 MMOL/L (21-32) Anion Gap 26 mmol/L (5-15) Blood Urea Nitrogen 32 mg/dL (7-18) Creatinine 1.8 MG/DL (0.55-1.30) Estimat Glomerular Filtration Rate 47.4 mL/min (>60) Glucose Level 768 MG/DL (74-106) Calcium Level 10.2 MG/DL (8.5-10.1) Total Bilirubin 0.8 MG/DL (0.2-1.0) Aspartate Amino Transf (AST/SGOT) 11 U/L (15-37) Alanine Aminotransferase (ALT/SGPT) 22 U/L (12-78) Alkaline Phosphatase 114 U/L (46-116) Total Creatine Kinase 95 U/L (26-308) Creatine Kinase MB 2.2 NG/ML (0.0-3.6) Creatine Kinase MB Relative Index 2.3 Troponin I 0.042 ng/mL (0.000-0.056) Total Protein 9.2 G/DL (6.4-8.2) Albumin 4.3 G/DL (3.4-5.0) Globulin 4.9 g/dL Albumin/Globulin Ratio 0.9 (1.0-2.7) Lipase 63 U/L (73-393) Urine Opiates Screen Negative (NEGATIVE) Urine Barbiturates Screen Negative (NEGATIVE) Phencyclidine (PCP) Screen Negative (NEGATIVE) Urine Amphetamines Screen Negative (NEGATIVE) Urine Benzodiazepines Screen Negative (NEGATIVE) Urine Cocaine Screen Positive (NEGATIVE) Urine Marijuana (THC) Screen Positive (NEGATIVE) EKG Diagnostic Results Rate: tachycardiac Rhythm: other ST Segments: no acute changes Rhythm Strip Diag. Results EP Interpretation: yes Rate: 110 Rhythm: no PVC's, no ectopy, other - Sinus tach Last Vital Signs Date Time Temp Pulse Resp B/P (MAP) Pulse Ox O2 Delivery O2 Flow Rate FiO2 04/09/18 06:47 97.9 134 20 142/91 99 Room Air 04/09/18 06:47 99 Status: improved Disposition: ADMITTED INPATIENT Condition: Critical Referrals: NON PHYSICIAN (PCP) Tanya Vega DO Apr 09, 2018 07:14
[2018-04-09] MEDS ORDERED: Insulin Human Regular 100units/ml 3ml IV ONE (07:15)
[2018-04-09 07:45] LABS: APPEARANCE,URINE CLEAR; BILIRUBIN, URINE NEGATIVE (NEGATIVE); COLOR,URINE PALE YELLOW; GLUCOSE, URINE (UA) 4+ (NEGATIVE); KETONES,URINE 4+ (NEGATIVE); LEUKOCYTE ESTERASE ,URINE NEGATIVE (NEGATIVE); NITRITE,URINE NEGATIVE (NEGATIVE); PH,URINE 5 (4.5-8.0); PROTEIN,URINE NEGATIVE (NEGATIVE); UROBILINOGEN,URINE NORMAL MG/DL (0.0-1.0)
[2018-04-09 07:48] LABS: BASOPHILS % (AUTO) 1.5 % (0.0-2.0); HEMATOCRIT 53.2 % (42.0-52.0); HEMOGLOBIN 16.1 G/DL (14.2-18.0); LYMPHOCYTES % (AUTO) 10.1 % (20.0-45.0); MEAN CORPUSCULAR VOLUME 84 FL (80-99); NEUTROPHILS % (AUTO) 82.4 % (45.0-75.0); PLATELET COUNT 297 K/UL (150-450); RED BLOOD COUNT 6.36 M/UL (4.70-6.10); RED CELL DISTRIBUTION WIDTH 12.5 % (11.6-14.8); WHITE BLOOD COUNT 16.1 K/UL (4.8-10.8)
[2018-04-09 07:53] LABS: ANION GAP 26 mmol/L (5-15); BLOOD UREA NITROGEN 32 mg/dL (7-18); CALCIUM 10.2 MG/DL (8.5-10.1); CARBON DIOXIDE 15 MMOL/L (21-32); CHLORIDE 83 MMOL/L (98-107); CREATININE 1.8 MG/DL (0.55-1.30); POTASSIUM 4.4 MMOL/L (3.5-5.1); SODIUM 124 MMOL/L (136-145)
[2018-04-09 08:04] LABS: ALANINE AMINOTRANSFERASE 22 U/L (12-78); ALBUMIN 4.3 G/DL (3.4-5.0); ALBUMIN/GLOBULIN RATIO 0.9 (1.0-2.7); ALKALINE PHOSPHATASE 114 U/L (46-116); ASPARTATE AMINO TRANSFERASE 11 U/L (15-37); BILIRUBIN,TOTAL 0.8 MG/DL (0.2-1.0); CKMB 2.2 NG/ML (0.0-3.6); CREATINE KINASE 95 U/L (26-308)
[2018-04-09] MEDS ORDERED: LORazepam Inj 2mg/ml 1ml IV ONE (08:15)
[2018-04-09] MEDS ORDERED: Insulin Rate Change 1 Each MISC PRN (14:00)
[2018-04-09] MEDS ORDERED: Insulin Human Regular 100units/ml 3ml IV PRN ×3 (14:00)
[2018-04-09 15:44] LABS: ANION GAP 15 mmol/L (5-15); BLOOD UREA NITROGEN 25 mg/dL (7-18); CALCIUM 9.6 MG/DL (8.5-10.1); CARBON DIOXIDE 25 MMOL/L (21-32); CHLORIDE 98 MMOL/L (98-107); CREATININE 1.1 MG/DL (0.55-1.30); POTASSIUM 3.7 MMOL/L (3.5-5.1); SODIUM 138 MMOL/L (136-145)
--- NOTE | 2018-04-09 16:21 | History & Physical ---
History and Physical History & Physicial HP dictated # [id number] Collin Miller MD Apr 09, 2018 16:21
[2018-04-09] MEDS: D5 1/2NS 1,000 ML IV SCH (16:26)
[2018-04-09] MEDS: Insulin Rate Change 1 Each MISC PRN ×6 (16:34→22:00)
[2018-04-09] MEDS: Insulin Human Regular 100units/ml 3ml IV PRN ×2 (18:30→20:11)
--- NOTE | 2018-04-09 22:00 | History and Physical Report ---
DATE OF ADMISSION: 04/09/2018 CHIEF COMPLAINT: Nausea and vomiting since yesterday. HISTORY OF PRESENT ILLNESS: This is a 57-year-old male with history of diabetes mellitus. The patient started having vomiting yesterday. He said he could not keep anything down. Finally, he came to the emergency room. He was found to have elevated blood sugars at 768. He was hyponatremic with a serum sodium of 124. Also, he has anion gap of 26 with CO2 of 15, so he was diagnosed with DKA. He was then subsequently started on IV insulin and was transferred to the intensive care unit. PAST MEDICAL HISTORY: Includes only history of diabetes and hypertension. MEDICATIONS: Reviewed in the EMR. SOCIAL HISTORY: The patient states he does not smoke except he smokes weed. He claims that there was some cocaine and weed, but he did not know. He lives at home with . ALLERGIES: No known drug allergies. REVIEW OF SYSTEMS: Noncontributory except above. PHYSICAL EXAMINATION: GENERAL: The patient is a 57-year-old male, in no acute distress. VITAL SIGNS: Blood pressure is 162/94, pulse 108, temperature 97.5, and respiratory rate is 17. HEENT: Erick conjunctivae. Anicteric sclerae. NECK: Supple. LUNGS: Clear to auscultation. HEART: S1 and S2 without murmurs or rubs. ABDOMEN: Soft and nontender. EXTREMITIES: No cyanosis or edema. LABORATORY FINDINGS: The CBC shows a WBC of 16,100; hematocrit 53.2, hemoglobin is 16.1, and platelets is 297,000. The latest chemistry panel shows a serum sodium of 138, potassium 3.7, chloride 98, CO2 25, BUN is 25, creatinine 1.1, and blood sugar is 136. The latest anion gap is 15. ASSESSMENT: This is a 57-year-old male, who was admitted with uncontrolled diabetes mellitus with diabetic ketoacidosis. He has been improved quickly so far. Initially, he received normal saline at 150 mL an hour. PLAN: The patient will be on D5 normal saline. I will continue the insulin tonight. NPO for nausea and vomiting, we will start the patient on diet tomorrow. Labs will be followed and adjustment will be made in the patient's regimen. Collin Miller M.D. DR: FARNAZ JOB#: [id number] CC: MAIA
[2018-04-10] VITALS (17 sets, daily range): BP systolic 124–168; BP diastolic 65–123
[2018-04-10] MEDS: Insulin Rate Change 1 Each MISC PRN
[2018-04-10] MEDS ORDERED: Insulin Rate Change 1 Each MISC PRN ×2 (01:15→04:15)
[2018-04-10] MEDS: D5 1/2NS 1,000 ML IV SCH ×2 (02:01→12:40)
[2018-04-10] MEDS ORDERED: Insulin Human Regular 100units/ml 3ml IV PRN ×2 (04:15)
[2018-04-10 07:06] LABS: ALANINE AMINOTRANSFERASE 19 U/L (12-78); ALBUMIN 3.4 G/DL (3.4-5.0); ALBUMIN/GLOBULIN RATIO 0.8 (1.0-2.7); ALKALINE PHOSPHATASE 82 U/L (46-116); ANION GAP 9 mmol/L (5-15); ASPARTATE AMINO TRANSFERASE 17 U/L (15-37); BILIRUBIN,TOTAL 0.6 MG/DL (0.2-1.0); BLOOD UREA NITROGEN 12 mg/dL (7-18); CALCIUM 8.9 MG/DL (8.5-10.1); CARBON DIOXIDE 28 MMOL/L (21-32); CHLORIDE 98 MMOL/L (98-107); PHOSPHORUS 1.6 MG/DL (2.5-4.9); POTASSIUM 3.4 MMOL/L (3.5-5.1); SODIUM 134 MMOL/L (136-145)
--- NOTE | 2018-04-10 09:19 | General Progress Note ---
Assessment/Plan Problem List: (1) DKA (diabetic ketoacidoses) ICD Codes: E13.10 - Other specified diabetes mellitus with ketoacidosis without coma SNOMED: 434819321, 50621183 (2) Diabetes ICD Codes: E11.9 - Type 2 diabetes mellitus without complications SNOMED: 60875610 (3) Hyperlipidemia ICD Codes: E78.5 - Hyperlipidemia, unspecified SNOMED: 53194945 (4) Enlarged prostate ICD Codes: N40.0 - Enlarged prostate without lower urinary tract symptoms SNOMED: 693177562 (5) Hypophosphatemia ICD Codes: E83.39 - Other disorders of phosphorus metabolism SNOMED: 1226453 (6) Hypokalemia ICD Codes: E87.6 - Hypokalemia SNOMED: 01063083 Assessment/Plan Dc IV insulin start SSI DC IVF start diet follow labs Kphos Lipid panel in AM Discussed with RN Subjective Allergies: Coded Allergies: No Known Allergies (Verified Allergy, Unknown, 01/08/07) Subjective feels hungry Objective Last 24 Hour Vital Signs Date Time Temp Pulse Resp B/P (MAP) Pulse Ox O2 Delivery O2 Flow Rate FiO2 04/10/18 08:00 Room Air 04/10/18 07:00 98 19 151/103 (119) 98 04/10/18 06:00 105 20 155/103 (120) 98 04/10/18 05:00 100 20 162/83 (109) 98 04/10/18 04:00 97.7 109 21 145/92 (109) 98 04/10/18 04:00 101 04/10/18 04:00 Room Air 04/10/18 03:00 106 20 147/97 (114) 98 04/10/18 02:00 106 20 154/97 (116) 99 04/10/18 01:00 104 19 161/91 (114) 99 04/10/18 00:00 Room Air 04/10/18 00:00 97.8 106 21 142/123 (129) 98 04/09/18 23:00 101 19 145/85 (105) 99 04/09/18 22:00 109 19 159/85 (109) 99 04/09/18 21:00 112 18 139/87 (104) 99 04/09/18 20:00 Room Air 04/09/18 20:00 97.8 116 22 127/78 (94) 97 04/09/18 20:00 112 04/09/18 19:00 117 18 124/67 (86) 99 04/09/18 18:00 107 17 159/90 (113) 99 04/09/18 17:00 97.4 112 18 135/90 (105) 99 04/09/18 16:00 Room Air 04/09/18 16:00 109 04/09/18 16:00 108 18 135/90 (105) 96 04/09/18 15:00 108 18 162/94 (116) 98 04/09/18 14:00 109 157/97 (117) 04/09/18 13:12 97.5 120 17 129/88 98 Room Air 04/09/18 13:11 Room Air 04/09/18 13:00 97.8 121 157/97 (117) 04/09/18 09:26 97.5 118 24 144/89 100 Room Air Intake and Output 04/09/18 04/10/18 18:59 06:59 Intake Total 2405.74 ml 1221.4 ml Output Total 550 ml 1300 ml Balance 1855.74 ml -78.6 ml Intake IV Total 2405.74 ml 1221.4 ml Output Urine Total 550 ml 1300 ml # Voids 3 Laboratory Tests 04/09/18 15:00: Sodium Level 138#, Potassium Level 3.7, Chloride Level 98, Carbon Dioxide Level 25, Anion Gap 15, Blood Urea Nitrogen 25H, Creatinine 1.1, Estimat Glomerular Filtration Rate > 60, Glucose Level 136#H, Hemoglobin A1c 11.4H, Calcium Level 9.6 04/10/18 05:53: Sodium Level 134L, Potassium Level 3.4L, Chloride Level 98, Carbon Dioxide Level 28, Anion Gap 9, Blood Urea Nitrogen 12, Creatinine 1.0, Estimat Glomerular Filtration Rate > 60, Glucose Level 164H, Calcium Level 8.9, Phosphorus Level 1.6L, Magnesium Level 1.9, Total Bilirubin 0.6, Aspartate Amino Transf (AST/SGOT) 17, Alanine Aminotransferase (ALT/SGPT) 19, Alkaline Phosphatase 82, Total Protein 7.7, Albumin 3.4, Globulin 4.3, Albumin/Globulin Ratio 0.8L Height (Feet): 5 Height (Inches): 9.00 Weight (Pounds): 192 Cardiovascular: normal rate Respiratory/Chest: lungs clear Abdomen: soft Edema: no edema noted Generalized Collin Miller MD Apr 10, 2018 09:19
[2018-04-10] MEDS ORDERED: Potassium Phosphate 30 MM in Sodium Chloride 500ML 550 ML IV ONE (11:00)
--- NOTE | 2018-04-10 11:27 | General Progress Note ---
Assessment/Plan Problem List: (1) DKA (diabetic ketoacidoses) ICD Codes: E13.10 - Other specified diabetes mellitus with ketoacidosis without coma SNOMED: 695174707, 19484498 (2) Diabetes ICD Codes: E11.9 - Type 2 diabetes mellitus without complications SNOMED: 53147411 (3) Abdominal pain ICD Codes: R10.9 - Unspecified abdominal pain SNOMED: 97292749 Assessment/Plan no need for insulin gtt start Levemir 28 units daily start Novolog 6 units ac tid continue NISS ac / hs Subjective Allergies: Coded Allergies: No Known Allergies (Verified Allergy, Unknown, 01/08/07) All Systems: reviewed and negative except above Subjective Patient present with complaints of elevated high blood pressure Also increased nausea vomiting Patient has history of insulin-dependent diabetes Has not checked his sugar over the past several months Denies any chest pain or shortness of breath denies any back or flank pain he has been having increased urination And increased thirst Patient is fairly noncompliant with medications - he is on long acting insulin daily as well glipizide diagnosed with DKA on presentation admitted to ICU for insulin drip treatment insulin gtt stopped this morning as his AG is closed Objective Last 24 Hour Vital Signs Date Time Temp Pulse Resp B/P (MAP) Pulse Ox O2 Delivery O2 Flow Rate FiO2 04/10/18 11:09 160/95 04/10/18 10:00 105 19 153/96 (115) 98 04/10/18 09:00 102 19 168/100 (122) 98 04/10/18 08:00 100 04/10/18 08:00 Room Air 04/10/18 08:00 98.0 106 19 161/91 (114) 98 04/10/18 07:00 98 19 151/103 (119) 98 04/10/18 06:00 105 20 155/103 (120) 98 04/10/18 05:00 100 20 162/83 (109) 98 04/10/18 04:00 97.7 109 21 145/92 (109) 98 04/10/18 04:00 101 04/10/18 04:00 Room Air 04/10/18 03:00 106 20 147/97 (114) 98 04/10/18 02:00 106 20 154/97 (116) 99 04/10/18 01:00 104 19 161/91 (114) 99 04/10/18 00:00 Room Air 04/10/18 00:00 97.8 106 21 142/123 (129) 98 04/09/18 23:00 101 19 145/85 (105) 99 04/09/18 22:00 109 19 159/85 (109) 99 04/09/18 21:00 112 18 139/87 (104) 99 04/09/18 20:00 Room Air 04/09/18 20:00 97.8 116 22 127/78 (94) 97 04/09/18 20:00 112 04/09/18 19:00 117 18 124/67 (86) 99 04/09/18 18:00 107 17 159/90 (113) 99 04/09/18 17:00 97.4 112 18 135/90 (105) 99 04/09/18 16:00 Room Air 04/09/18 16:00 109 04/09/18 16:00 108 18 135/90 (105) 96 04/09/18 15:00 108 18 162/94 (116) 98 04/09/18 14:00 109 157/97 (117) 04/09/18 13:12 97.5 120 17 129/88 98 Room Air 04/09/18 13:11 Room Air 04/09/18 13:00 97.8 121 157/97 (117) Intake and Output 04/09/18 04/10/18 18:59 06:59 Intake Total 2405.74 ml 1221.4 ml Output Total 550 ml 1300 ml Balance 1855.74 ml -78.6 ml IV Total 2405.74 ml 1221.4 ml Output Urine Total 550 ml 1300 ml # Voids 3 Laboratory Tests 04/09/18 15:00: Sodium Level 138#, Potassium Level 3.7, Chloride Level 98, Carbon Dioxide Level 25, Anion Gap 15, Blood Urea Nitrogen 25H, Creatinine 1.1, Estimat Glomerular Filtration Rate > 60, Glucose Level 136#H, Hemoglobin A1c 11.4H, Calcium Level 9.6 04/10/18 05:53: Sodium Level 134L, Potassium Level 3.4L, Chloride Level 98, Carbon Dioxide Level 28, Anion Gap 9, Blood Urea Nitrogen 12, Creatinine 1.0, Estimat Glomerular Filtration Rate > 60, Glucose Level 164H, Calcium Level 8.9, Phosphorus Level 1.6L, Magnesium Level 1.9, Total Bilirubin 0.6, Aspartate Amino Transf (AST/SGOT) 17, Alanine Aminotransferase (ALT/SGPT) 19, Alkaline Phosphatase 82, Total Protein 7.7, Albumin 3.4, Globulin 4.3, Albumin/Globulin Ratio 0.8L Height (Feet): 5 Height (Inches): 9.00 Weight (Pounds): 192 General Appearance: no apparent distress Neck: normal alignment Cardiovascular: normal peripheral pulses Respiratory/Chest: chest wall non-tender, lungs clear Abdomen: normal bowel sounds Pelvis: normal external exam Clifton Rodríguez MD Apr 10, 2018 11:27
[2018-04-10] MEDS ORDERED: Levemir Flexpen SUBQ SCH (11:30)
[2018-04-10] MEDS ORDERED: NovoLOG Insulin Flexpen SUBQ SCH ×2 (11:30→11:50)
--- NOTE | 2018-04-10 14:12 | Cardiology Report ---
APPROVED REPORT EKG Measurement Heart [id number] Sinus tachycardia Ventricular pre-excitation, WPW pattern type B Abnormal ECG
[2018-04-10] MEDS ORDERED: D5 1/2NS 1,000 ML IV SCH (14:30)
[2018-04-10] MEDS: NovoLOG Insulin Flexpen SUBQ SCH ×3 (17:10→21:01)
[2018-04-11] VITALS (8 sets, daily range): BP systolic 109–141; BP diastolic 78–86
[2018-04-11] MEDS: NovoLOG Insulin Flexpen SUBQ SCH ×7 (06:19→21:00)
[2018-04-11 07:32] LABS: ANION GAP 17 mmol/L (5-15); BLOOD UREA NITROGEN 10 mg/dL (7-18); CALCIUM 8.7 MG/DL (8.5-10.1); CARBON DIOXIDE 22 MMOL/L (21-32); CHLORIDE 97 MMOL/L (98-107); CREATININE 0.9 MG/DL (0.55-1.30); PHOSPHORUS 2.3 MG/DL (2.5-4.9); POTASSIUM 4.1 MMOL/L (3.5-5.1); SODIUM 135 MMOL/L (136-145)
[2018-04-11] MEDS ORDERED: Levemir Flexpen SUBQ SCH (09:00)
[2018-04-11] MEDS ORDERED: D5 1/2NS 1000ml IV ONE (10:27)
[2018-04-11] MEDS ORDERED: Potassium Phosphate 30 MM in Sodium Chloride 500ML 550 ML IV ONE (11:00)
--- NOTE | 2018-04-11 11:03 | Nephrology Progress Note ---
Assessment/Plan Assessment/Plan A/P 1) DKA- resolved, due to medical noncompliance - DC once cleared by Endo 2) E- ABN replace phos today 3) HTN- stable Plan for DC once Endo makes final reccs Subjective Date patient seen: Apr 11, 2018 Time patient seen: 11:01 ROS Limited/Unobtainable: No Allergies: Coded Allergies: No Known Allergies (Verified Allergy, Unknown, 01/08/07) Subjective Patient feeling better. Eating well Objective Last 24 Hour Vital Signs Date Time Temp Pulse Resp B/P (MAP) Pulse Ox O2 Delivery O2 Flow Rate FiO2 04/11/18 08:57 109/78 04/11/18 07:41 Room Air 04/11/18 04:00 97.6 96 20 140/86 (104) 96 04/11/18 00:00 98.4 105 20 122/80 (94) 96 04/10/18 21:00 Room Air 04/10/18 20:00 98.6 99 20 155/77 (103) 99 04/10/18 17:08 156/99 04/10/18 16:06 98.7 101 21 156/99 (118) 98 04/10/18 14:00 118 18 124/65 (84) 100 04/10/18 13:00 104 19 152/89 (110) 98 04/10/18 12:00 103 04/10/18 12:00 Room Air 04/10/18 12:00 104 19 150/89 (109) 98 04/10/18 11:09 160/95 Intake and Output 04/10/18 04/11/18 18:59 06:59 Intake Total 2135.95 ml 1375 ml Output Total 1335 ml 800 ml Balance 800.95 ml 575 ml Intake Oral 280 ml 400 ml IV Total 1855.95 ml 975 ml Output Urine Total 1335 ml 800 ml # Voids 2 3 Laboratory Tests 04/11/18 05:10: Sodium Level 135L, Potassium Level 4.1, Chloride Level 97L, Carbon Dioxide Level 22, Anion Gap 17H, Blood Urea Nitrogen 10, Creatinine 0.9, Estimat Glomerular Filtration Rate > 60, Glucose Level 261H, Calcium Level 8.7, Phosphorus Level 2.3L, Magnesium Level 1.9 Height (Feet): 5 Height (Inches): 9.00 Weight (Pounds): 192 General Appearance: no apparent distress, alert EENT: normal ENT inspection Neck: normal alignment, supple Cardiovascular: normal rate, regular rhythm Respiratory/Chest: lungs clear, normal breath sounds Abdomen: non tender, soft Edema: no edema noted Arm (L), no edema noted Arm (R), no edema noted Leg (L), no edema noted Leg (R), no edema noted Pedal (L), no edema noted Pedal (R), no edema noted Generalized Ranjan Cruz MD Apr 11, 2018 11:03
[2018-04-11 11:24] LABS: BASOPHILS % (AUTO) 1.4 % (0.0-2.0); EOSINOPHILS % (AUTO) 1.1 % (0.0-3.0); HEMATOCRIT 47.4 % (42.0-52.0); HEMOGLOBIN 14.7 G/DL (14.2-18.0); LYMPHOCYTES % (AUTO) 33.2 % (20.0-45.0); MEAN CORPUSCULAR VOLUME 81 FL (80-99); MONOCYTES % (AUTO) 14.2 % (1.0-10.0); NEUTROPHILS % (AUTO) 50.2 % (45.0-75.0); PLATELET COUNT 234 K/UL (150-450); RED BLOOD COUNT 5.86 M/UL (4.70-6.10); RED CELL DISTRIBUTION WIDTH 12.1 % (11.6-14.8); WHITE BLOOD COUNT 8.4 K/UL (4.8-10.8)
[2018-04-11] MEDS ORDERED: Potassium Phosphate 15 MM in NS 275 ML IV SCH (12:30)
--- NOTE | 2018-04-11 13:53 | General Progress Note ---
Assessment/Plan Problem List: (1) DKA (diabetic ketoacidoses) ICD Codes: E13.10 - Other specified diabetes mellitus with ketoacidosis without coma SNOMED: 462196436, 29816711 (2) Diabetes ICD Codes: E11.9 - Type 2 diabetes mellitus without complications SNOMED: 69226244 (3) Abdominal pain ICD Codes: R10.9 - Unspecified abdominal pain SNOMED: 36527059 Assessment/Plan increase Levemir to 34 units daily increase Novolog to 8 units ac tid continue NISS ac / hs Subjective Allergies: Coded Allergies: No Known Allergies (Verified Allergy, Unknown, 01/08/07) All Systems: reviewed and negative except above Subjective doing better glucose values improved Objective Last 24 Hour Vital Signs Date Time Temp Pulse Resp B/P (MAP) Pulse Ox O2 Delivery O2 Flow Rate FiO2 04/11/18 12:00 99.4 94 19 138/80 (99) 100 04/11/18 08:57 109/78 04/11/18 08:00 98.5 107 19 109/78 (88) 100 04/11/18 07:41 Room Air 04/11/18 04:00 97.6 96 20 140/86 (104) 96 04/11/18 00:00 98.4 105 20 122/80 (94) 96 04/10/18 21:00 Room Air 04/10/18 20:00 98.6 99 20 155/77 (103) 99 04/10/18 17:08 156/99 04/10/18 16:06 98.7 101 21 156/99 (118) 98 04/10/18 14:00 118 18 124/65 (84) 100 Intake and Output 04/10/18 04/11/18 18:59 06:59 Intake Total 2135.95 ml 1375 ml Output Total 1335 ml 800 ml Balance 800.95 ml 575 ml Intake Oral 280 ml 400 ml IV Total 1855.95 ml 975 ml Output Urine Total 1335 ml 800 ml # Voids 2 3 Laboratory Tests 04/11/18 05:10: White Blood Count 8.4, Red Blood Count 5.86, Hemoglobin 14.7, Hematocrit 47.4, Mean Corpuscular Volume 81, Mean Corpuscular Hemoglobin 25.1L, Mean Corpuscular Hemoglobin Concent 31.1L, Red Cell Distribution Width 12.1, Platelet Count 234, Mean Platelet Volume 8.1, Neutrophils (%) (Auto) 50.2, Lymphocytes (%) (Auto) 33.2, Monocytes (%) (Auto) 14.2H, Eosinophils (%) (Auto) 1.1, Basophils (%) ( Auto) 1.4, Sodium Level 135L, Potassium Level 4.1, Chloride Level 97L, Carbon Dioxide Level 22, Anion Gap 17H, Blood Urea Nitrogen 10, Creatinine 0.9, Estimat Glomerular Filtration Rate > 60, Glucose Level 261H, Calcium Level 8.7, Phosphorus Level 2.3L, Magnesium Level 1.9 Height (Feet): 5 Height (Inches): 9.00 Weight (Pounds): 192 General Appearance: no apparent distress Neck: normal alignment Cardiovascular: normal rate Respiratory/Chest: lungs clear Abdomen: normal bowel sounds Objective Current Medications Medications (Trade) Dose Ordered Sig/Pasha Route PRN Reason Start Time Stop Time Status Last Admin Dose Admin Benazepril HCl (Lotensin) 20 mg BID ORAL 04/10/18 18:00 05/10/18 09:59 04/11/18 08:57 Dextrose (Dextrose 50%) 25 ml Q30M PRN IV Hypoglycemia 04/10/18 14:30 05/10/18 11:29 Dextrose (Dextrose 50%) 50 ml Q30M PRN IV Hypoglycemia 04/10/18 14:30 05/10/18 11:29 Insulin Aspart (NovoLOG) BEFORE MEALS AND HS SUBQ 04/10/18 16:30 05/10/18 11:29 04/11/18 11:35 Insulin Aspart (NovoLOG) 6 units NOVOTIAC SUBQ 04/10/18 16:50 05/10/18 11:49 04/11/18 11:36 Insulin Detemir (Levemir) 28 units DAILY SUBQ 04/11/18 09:00 05/10/18 11:29 04/11/18 09:04 Ondansetron HCl (Zofran) 4 mg Q4H PRN IVP Nausea & Vomiting 04/10/18 18:15 05/10/18 18:14 04/11/18 04:55 Pantoprazole (Protonix) 40 mg DAILY ORAL 04/11/18 09:00 05/10/18 08:59 04/11/18 08:58 Potassium Phosphate 15 mm/ Sodium Chloride 280 ml @ 46.667 mls/ hr ONCE IV 04/11/18 12:30 04/11/18 14:00 04/11/18 11:40 Item Value Date Time Bedside Blood Glucose 249 mg/dl H 04/10/18 1111 Bedside Blood Glucose 128 mg/dl H 04/10/18 0800 Bedside Blood Glucose 157 mg/dl H 04/10/18 0600 Bedside Blood Glucose 197 mg/dl H 04/10/18 0200 Bedside Blood Glucose 108 mg/dl 04/09/18 2200 Bedside Blood Glucose 208 mg/dl H 04/09/18 1830 Bedside Blood Glucose 174 mg/dl H 04/11/18 1136 Bedside Blood Glucose 216 mg/dl H 04/11/18 0904 Bedside Blood Glucose 253 mg/dl H 04/11/18 0630 Bedside Blood Glucose 221 mg/dl H 04/10/18 2101 Bedside Blood Glucose 257 mg/dl H 04/10/18 1711 Clifton Rodríguez MD Apr 11, 2018 13:53
[2018-04-12] VITALS (7 sets, daily range): BP systolic 115–143; BP diastolic 68–93
[2018-04-12] MEDS: NovoLOG Insulin Flexpen SUBQ SCH ×2 (05:47→05:48)
[2018-04-12 07:28] LABS: BASOPHILS % (AUTO) 4.9 % (0.0-2.0); EOSINOPHILS % (AUTO) 1.6 % (0.0-3.0); HEMATOCRIT 43.1 % (42.0-52.0); HEMOGLOBIN 13.9 G/DL (14.2-18.0); LYMPHOCYTES % (AUTO) 38.2 % (20.0-45.0); MEAN CORPUSCULAR VOLUME 81 FL (80-99); MONOCYTES % (AUTO) 9.3 % (1.0-10.0); PLATELET COUNT 218 K/UL (150-450); RED BLOOD COUNT 5.34 M/UL (4.70-6.10); RED CELL DISTRIBUTION WIDTH 12.7 % (11.6-14.8)
[2018-04-12 08:00] LABS: ANION GAP 12 mmol/L (5-15); BLOOD UREA NITROGEN 8 mg/dL (7-18); CALCIUM 8.6 MG/DL (8.5-10.1); CARBON DIOXIDE 24 MMOL/L (21-32); CHLORIDE 100 MMOL/L (98-107); CREATININE 0.8 MG/DL (0.55-1.30); POTASSIUM 3.7 MMOL/L (3.5-5.1); SODIUM 136 MMOL/L (136-145)
[2018-04-12] MEDS ORDERED: Levemir Flexpen SUBQ SCH (09:00)
--- NOTE | 2018-04-12 09:50 | General Progress Note ---
Assessment/Plan Problem List: (1) DKA (diabetic ketoacidoses) ICD Codes: E13.10 - Other specified diabetes mellitus with ketoacidosis without coma SNOMED: 702491972, 44279339 (2) Diabetes ICD Codes: E11.9 - Type 2 diabetes mellitus without complications SNOMED: 35201093 (3) Abdominal pain ICD Codes: R10.9 - Unspecified abdominal pain SNOMED: 22891955 Assessment/Plan continue Levemir 34 units daily continue Novolog 8 units ac tid continue NISS ac / hs stable for DC home from DM stand point Rx for all diabetic supplies left in chart Subjective Allergies: Coded Allergies: No Known Allergies (Verified Allergy, Unknown, 01/08/07) All Systems: reviewed and negative except above Subjective doing better glucose values improved Objective Last 24 Hour Vital Signs Date Time Temp Pulse Resp B/P (MAP) Pulse Ox O2 Delivery O2 Flow Rate FiO2 04/12/18 09:09 143/93 04/12/18 08:00 98.3 88 18 143/93 (110) 100 04/12/18 07:56 Room Air 04/12/18 04:01 98.3 81 18 115/68 (84) 99 04/12/18 00:03 97.8 82 18 126/77 (93) 98 04/11/18 21:00 Room Air 04/11/18 20:02 97.3 100 18 141/82 (101) 97 04/11/18 17:20 113/78 04/11/18 16:00 99.1 101 19 113/78 (90) 100 04/11/18 12:00 99.4 94 19 138/80 (99) 100 Intake and Output 04/11/18 04/12/18 19:00 07:00 Intake Total 800 ml 1000 ml Output Total 850 ml Balance 800 ml 150 ml Intake Oral 800 ml 1000 ml Output Urine Total 850 ml # Voids 2 4 Laboratory Tests 04/12/18 06:37: White Blood Count 8.0, Red Blood Count 5.34, Hemoglobin 13.9L, Hematocrit 43.1, Mean Corpuscular Volume 81, Mean Corpuscular Hemoglobin 25.9L, Mean Corpuscular Hemoglobin Concent 32.2, Red Cell Distribution Width 12.7, Platelet Count 218, Mean Platelet Volume 10.0, Neutrophils (%) (Auto) 46.0, Lymphocytes (%) (Auto) 38.2, Monocytes (%) (Auto) 9.3, Eosinophils (%) (Auto) 1.6, Basophils (%) (Auto ) 4.9H, Sodium Level 136, Potassium Level 3.7, Chloride Level 100, Carbon Dioxide Level 24, Anion Gap 12, Blood Urea Nitrogen 8, Creatinine 0.8, Estimat Glomerular Filtration Rate > 60, Glucose Level 193H, Calcium Level 8.6 Height (Feet): 5 Height (Inches): 9.00 Weight (Pounds): 192 General Appearance: no apparent distress Neck: normal alignment Cardiovascular: normal rate Respiratory/Chest: lungs clear Abdomen: normal bowel sounds Pelvis: normal external exam Edema: no edema noted Arm (L), no edema noted Arm (R), no edema noted Leg (L), no edema noted Leg (R), no edema noted Pedal (L), no edema noted Pedal (R), no edema noted Generalized Objective Current Medications Medications (Trade) Dose Ordered Sig/Pasha Route PRN Reason Start Time Stop Time Status Last Admin Dose Admin Al Hydroxide/Mg Hydroxide (Mylanta) 30 ml Q6H PRN ORAL DYSPEPSIA 04/11/18 18:00 05/11/18 17:59 04/12/18 00:43 Benazepril HCl (Lotensin) 20 mg BID ORAL 04/10/18 18:00 05/10/18 09:59 04/12/18 09:09 Dextrose (Dextrose 50%) 25 ml Q30M PRN IV Hypoglycemia 04/10/18 14:30 05/10/18 11:29 Dextrose (Dextrose 50%) 50 ml Q30M PRN IV Hypoglycemia 04/10/18 14:30 05/10/18 11:29 Insulin Aspart (NovoLOG) BEFORE MEALS AND HS SUBQ 04/10/18 16:30 05/10/18 11:29 04/12/18 05:48 Insulin Aspart (NovoLOG) 8 units NOVOTIAC SUBQ 04/11/18 16:50 05/10/18 11:49 04/12/18 05:47 Insulin Detemir (Levemir) 36 units DAILY SUBQ 04/12/18 09:00 05/10/18 11:29 04/12/18 09:10 Ondansetron HCl (Zofran) 4 mg Q4H PRN IVP Nausea & Vomiting 04/10/18 18:15 05/10/18 18:14 04/11/18 20:45 Pantoprazole (Protonix) 40 mg DAILY ORAL 04/11/18 09:00 05/10/18 08:59 04/12/18 09:08 Item Value Date Time Bedside Blood Glucose 227 mg/dl H 04/12/18 0910 Bedside Blood Glucose 153 mg/dl H 04/12/18 0630 Bedside Blood Glucose 98 mg/dl 04/11/18 2100 Bedside Blood Glucose 129 mg/dl H 04/11/18 1637 Clifton Rodríguez MD Apr 12, 2018 09:50
--- NOTE | 2018-04-12 09:50 | Nephrology Progress Note ---
Assessment/Plan Assessment/Plan A/P 1) DKA- resolved, due to medical noncompliance - DC today. Appreciate Endo leaving insulin regimen. F/U PCP this week 2) E- ABN corrected 3) HTN- stable Subjective Date patient seen: Apr 12, 2018 Time patient seen: 09:49 ROS Limited/Unobtainable: No Allergies: Coded Allergies: No Known Allergies (Verified Allergy, Unknown, 01/08/07) Subjective Patient feeling better. Eating well and set for DC Objective Last 24 Hour Vital Signs Date Time Temp Pulse Resp B/P (MAP) Pulse Ox O2 Delivery O2 Flow Rate FiO2 04/12/18 09:09 143/93 04/12/18 08:00 98.3 88 18 143/93 (110) 100 04/12/18 07:56 Room Air 04/12/18 04:01 98.3 81 18 115/68 (84) 99 04/12/18 00:03 97.8 82 18 126/77 (93) 98 04/11/18 21:00 Room Air 04/11/18 20:02 97.3 100 18 141/82 (101) 97 04/11/18 17:20 113/78 04/11/18 16:00 99.1 101 19 113/78 (90) 100 04/11/18 12:00 99.4 94 19 138/80 (99) 100 Intake and Output 04/11/18 04/12/18 19:00 07:00 Intake Total 800 ml 1000 ml Output Total 850 ml Balance 800 ml 150 ml Intake Oral 800 ml 1000 ml Output Urine Total 850 ml # Voids 2 4 Laboratory Tests 04/12/18 06:37: White Blood Count 8.0, Red Blood Count 5.34, Hemoglobin 13.9L, Hematocrit 43.1, Mean Corpuscular Volume 81, Mean Corpuscular Hemoglobin 25.9L, Mean Corpuscular Hemoglobin Concent 32.2, Red Cell Distribution Width 12.7, Platelet Count 218, Mean Platelet Volume 10.0, Neutrophils (%) (Auto) 46.0, Lymphocytes (%) (Auto) 38.2, Monocytes (%) (Auto) 9.3, Eosinophils (%) (Auto) 1.6, Basophils (%) (Auto ) 4.9H, Sodium Level 136, Potassium Level 3.7, Chloride Level 100, Carbon Dioxide Level 24, Anion Gap 12, Blood Urea Nitrogen 8, Creatinine 0.8, Estimat Glomerular Filtration Rate > 60, Glucose Level 193H, Calcium Level 8.6 Height (Feet): 5 Height (Inches): 9.00 Weight (Pounds): 192 General Appearance: no apparent distress, alert EENT: normal ENT inspection Neck: normal alignment, supple Cardiovascular: normal rate, regular rhythm Respiratory/Chest: lungs clear, normal breath sounds Abdomen: non tender, soft Edema: no edema noted Arm (L), no edema noted Arm (R), no edema noted Leg (L), no edema noted Leg (R), no edema noted Pedal (L), no edema noted Pedal (R), no edema noted Generalized Ranjan Cruz MD Apr 12, 2018 09:50
--- NOTE | 2018-04-12 09:52 | Discharge Instructions ---
Discharge Instructions Discharge Instructions Services at Discharge: day care Diet: 2 GM sodium (low sodium), diabetic calorie control Resume Normal Activity?: Yes Activity: light activity For Congestive Heart Failure Reminder Report to your physician any weight gain of 5 pounds or more in one week. Ranjan Cruz MD Apr 12, 2018 09:51
[2018-04-12] MEDS ORDERED: NOVOLOG100 UNITS1 SUBQ (10:42)
[2018-04-12] MEDS ORDERED: LEVEMIR FL100 UNIT/1 SUBQ (10:43)
--- NOTE | 2018-04-13 12:34 | Discharge Summary ---
Discharge Summary Discharge Summary _ DATE OF ADMISSION: 04/09/2018 DATE OF DISCHARGE: 04/12/2018 DISCHARGED BY: Dr. Miller REASON FOR ADMISSION: 57 years old male with past medical history of diabetes mellitus and hypertension, presented to emergency department after multiply vomiting episode and unable to keep anything down. Upon evaluation blood sugar 768. Patient was hyponatremic with serum sodium 124 anion gap 26 CO2 15 urine toxicology screen was positive for cocaine and marijuana Urinalysis revealed +4 glucose plus for ketones no evidence of UTI. Patient was diagnosed with a DKA subsequently started on IV insulin and was transferred to intensive care unit for further management CONSULTANTS: process helper Dr. Rodríguez [facility] COURSE: Patient admitted to ICU. Patient initially was on insulin drip as per protocol. Patient started on the IV hydration and initially kept n.p.o. Endocrinology consult was requested. Hemoglobin A1c -11.4 , clearly not at goal. When anion gap closed , patient started on long-acting Levemir, short acting pre-meal insulin and sliding scale of insulin as needed. Diabetic diet provided. Patient was counseled on compliance with medication regimen at home. Blood sugar stabilized. Supportive care provided. Antiemetic provided as needed. GI prophylaxis provided. Patient was able to tolerate diet. No further episodes of vomiting. Blood pressure was managed with GIANNA inhibitor, and remained stable. Statin was continued. Renal parameters and electrolytes were closely monitored. Electrolytes corrected as needed/. Prior to discharge sodium 136. CO2 24. Stable potassium and phosphorus. Stable renal parameters. Patient was counseled on abstinence from illicit street drugs. Patient was stable for discharge home. FINAL DIAGNOSES: Diabetic ketoacidosis Diabetes mellitus out of control, with hemoglobin A1c 11.1 Hypertension -stable Electrolyte abnormalities- corrected Enlarged prostate Hyperlipidemia Cocaine abuse DISCHARGE MEDICATIONS: See Medication Reconciliation list. DISCHARGE INSTRUCTIONS: Patient was discharged home . Follow up with primary care provider in one week. I have been assigned to dictate discharge summary for this account. I was not involved in the patient's management. Aundrea Lorenzo NP Apr 13, 2018 12:34
== END 2018-04-12 11:28 | disposition home or self-care (01) | DRG 420 ==
LOC: EMR 06:51 → ICU 08:23 → EDBEDREQ 11:42 → 3E 04-10 14:22
DX: E11.10 Type 2 diabetes mellitus with ketoacidosis without coma (principal); E83.39 Other disorders of phosphorus metabolism; N40.0 Benign prostatic hyperplasia without lower urinary tract symptoms; E78.5 Hyperlipidemia, unspecified; F14.10 Cocaine abuse, uncomplicated; E87.6 Hypokalemia; R10.9 Unspecified abdominal pain; Z91.14 Patient's other noncompliance with medication regimen
CPT/HCPCS: 36415; 80048; 80053; 80307; 81003; 82550; 82553; 82962; 83036; 83690; 83735; 84100; 84484; 85025; 87081; 93005; 96361; 96374; 96375; 99291; J1815; J2405; S5561

== ENCOUNTER 2018-12-12 19:52 | Emergency (ER) | payer OTHER ==
[~2018-12-12] VITALS: Ht 177.8 cm; Wt 93.0 kg
[~2018-12-12 19:52] MED LIST changes: +LEVEMIR FL100 UNIT/1 SUBQ; +NOVOLOG100 UNITS1 SUBQ
[2018-12-12] MEDS ORDERED: DiphenhydrAMINE 50mg/ml Inj IVP ONE (20:00)
[2018-12-12] MEDS ORDERED: Morphine Sulfate 2mg/ml Inj(IV/IM USE ONLY) IVP ONE (20:00)
[2018-12-12] MEDS ORDERED: Metoclopramide 10mg/2ml Inj IVP ONE (20:00)
--- NOTE | 2018-12-12 20:00 | NUR ---
ED Nurse Note: RECIEVED PT FROM HOME, HERE WITH C/O ABDOMINAL PAIN WITH NAUSEA X 2 DAYS AND PAIN INCREASING TO 10/10 TODAY, PT IS ACTIVELY SPITTING, NO EMESIS NOTED, PT DENIES CP, NO SOB OR LABORED BREATHING NOTED, PT ASSISTED TO GOWN AND CARDIAC MONITORING, WILL RESUME CARE ORDERED AND CLOSELY MONITOR.
--- NOTE | 2018-12-12 20:11 | Emergency Room Report ---
History of Present Illness General Chief Complaint: Abdominal Pain Source: Patient Present Illness HPI Patient presents with abdominal pain, vomiting and diarrhea. Over the weekend on Wednesday he started yet ill. He had dark diarrhea at that time. He is not vomiting any coffee grounds right now. The pain is severe at this time and epigastric not rating toward his back. The patient has a history of diabetic gastroparesis. He was admitted from April 06 the last year. Discharge diagnoses: Diabetic ketoacidosis Diabetes mellitus out of control, with hemoglobin A1c 11.1 Hypertension -stable Electrolyte abnormalities- corrected Enlarged prostate Hyperlipidemia Cocaine abuse No fevers, chills, sore throat, chest pain, palpitations, dysuria, shortness of breath, joint pain, rashes, depression, anxiety, visual changes, headache. He states he is no longer using other drugs aside from THC. Allergies: Coded Allergies: No Known Allergies (Verified , 01/08/07) Patient History Past Medical History: see triage record Social History: Reports: drug use - THC now, others in the past; Denies: alcohol use Social History Narrative from home Reviewed Nursing Documentation: PMH: Agreed; PSxH: Agreed Nursing Documentation-PMH Past Medical History: No History, Except For Hx Cardiac Problems: Yes Hx Hypertension: Yes - hyperlipidemia Hx Diabetes: Yes Hx Cancer: No Hx Neurological Problems: No Review of Systems All Other Systems: negative except mentioned in HPI Physical Exam Vital Signs Date Time Temp Pulse Resp B/P (MAP) Pulse Ox O2 Delivery O2 Flow Rate FiO2 12/12/18 19:48 98.6 100 18 174/60 (98) 98 Room Air Sp02 EP Interpretation: reviewed, normal General Appearance: well appearing, no apparent distress, GCS 15 Head: normocephalic, atraumatic Eyes: bilateral eye normal inspection, bilateral eye PERRL, bilateral eye EOMI ENT: moist mucus membranes Neck: supple Respiratory: chest non-tender, lungs clear, normal breath sounds Cardiovascular #1: regular rate, rhythm Cardiovascular #2: 2+ radial (R) Gastrointestinal: normal inspection, non-distended, no guarding, no rebound, tenderness, decreased bowel sounds, overweight Genitourinary: no CVA tenderness Musculoskeletal: back normal, normal range of motion Neurologic: alert, oriented x3, grossly normal Psychiatric: mood/affect normal Skin: no rash Medical Decision Making Diagnostic Impression: Primary Impression: Abdominal pain Qualified Codes: R10.84 - Generalized abdominal pain Additional Impressions: Diabetic gastroparesis Hypertension Qualified Codes: I10 - Essential (primary) hypertension ER Course Patient with vomiting abdominal pain history of diabetes for several days. Differential includes diabetic ketoacidosis, acute myocardial infarction, gastritis, peptic ulcer disease, pancreatitis, gastroenteritis amongst others. Patient will be evaluated with EKG, chest x-ray, abdominal x-ray and labs. Patient will be treated with IV hydration, metoclopramide and Pepcid. Patient will be given dose of morphine his pain is quite severe at this time. EKG without injury. Chest x-ray no infiltrates. Abdomen film paucity of gas no free air. Labs with minimally elevated white count. Glucose slightly elevated no evidence of significant acidosis. Patient continues to have significant abdominal pain. Second dose of morphine is given. Also Zofran as he still is nauseated and feels like he has to vomit. Patient continues to have significant abdominal pain switched to Dilaudid and a second dose of Zofran is given. Contact Dr. Mayorga at [facility] [place] for transfer for observation. Laboratory Tests Test 12/12/18 20:35 12/12/18 21:10 White Blood Count 10.0 K/UL (4.8-10.8) Red Blood Count 5.56 M/UL (4.70-6.10) Hemoglobin 14.5 G/DL (14.2-18.0) Hematocrit 45.1 % (42.0-52.0) Mean Corpuscular Volume 81 FL (80-99) Mean Corpuscular Hemoglobin 26.0 PG (27.0-31.0) L Mean Corpuscular Hemoglobin Concent 32.1 G/DL (32.0-36.0) Red Cell Distribution Width 12.9 % (11.6-14.8) Platelet Count 291 K/UL (150-450) Mean Platelet Volume 7.4 FL (6.5-10.1) Neutrophils (%) (Auto) 70.7 % (45.0-75.0) Lymphocytes (%) (Auto) 20.4 % (20.0-45.0) Monocytes (%) (Auto) 6.4 % (1.0-10.0) Eosinophils (%) (Auto) 0.7 % (0.0-3.0) Basophils (%) (Auto) 1.7 % (0.0-2.0) Prothrombin Time 10.2 SEC (9.30-11.50) Prothrombin Time INR 1.0 (0.9-1.1) PTT 29 SEC (23-33) Sodium Level 139 MMOL/L (136-145) Potassium Level 4.2 MMOL/L (3.5-5.1) Chloride Level 101 MMOL/L (98-107) Carbon Dioxide Level 22 MMOL/L (21-32) Anion Gap 16 mmol/L (5-15) H Blood Urea Nitrogen 15 mg/dL (7-18) Creatinine 1.0 MG/DL (0.55-1.30) Estimate Glomerular Filtration Rate > 60 mL/min (>60) Glucose Level 287 MG/DL (74-106) H Calcium Level 9.6 MG/DL (8.5-10.1) Total Bilirubin 0.4 MG/DL (0.2-1.0) Aspartate Amino Transferase (AST) 11 U/L (15-37) L Alanine Aminotransferase (ALT) 15 U/L (12-78) Alkaline Phosphatase 84 U/L (46-116) Total Creatine Kinase 101 U/L (26-308) Troponin I 0.017 ng/mL (0.000-0.056) Total Protein 7.6 G/DL (6.4-8.2) Albumin 3.7 G/DL (3.4-5.0) Globulin 3.9 g/dL Albumin/Globulin Ratio 0.9 (1.0-2.7) L Lipase 78 U/L (73-393) Urine Color Pale yellow Urine Appearance Clear Urine pH 6 (4.5-8.0) Urine Specific [place] 1.010 (1.005-1.035) Urine Protein Negative (NEGATIVE) Urine Glucose (UA) 4+ (NEGATIVE) H Urine Ketones 3+ (NEGATIVE) H Urine Blood Negative (NEGATIVE) Urine Nitrite Negative (NEGATIVE) Urine Bilirubin Negative (NEGATIVE) Urine Urobilinogen Normal MG/DL (0.0-1.0) Urine Leukocyte Esterase Negative (NEGATIVE) Urine Opiates Screen Negative (NEGATIVE) Urine Barbiturates Screen Negative (NEGATIVE) Phencyclidine (PCP) Screen Negative (NEGATIVE) Urine Amphetamines Screen Negative (NEGATIVE) Urine Benzodiazepines Screen Negative (NEGATIVE) Urine Cocaine Screen Negative (NEGATIVE) Urine Marijuana (THC) Screen Positive (NEGATIVE) H EKG Diagnostic Results Rate: normal Rhythm: NSR ST Segments: no acute changes Rhythm Strip Diag. Results EP Interpretation: yes Rhythm: NSR, no PVC's, no ectopy Chest X-Ray Diagnostic Results Chest X-Ray Diagnostic Results : Chest X-Ray Ordered: Yes # of Views/Limited/Complete: 1 View Indication: Other EP Interpretation: Yes Interpretation: no consolidation, no effusion, no pneumothorax Impression: No acute disease Electronically Signed by: Electronically signed by Blayne Prince MD Other X-Ray Diagnostic Results Other X-Ray Diagnostic Results : X-Ray ordered: abd # of Views/Limited Vs Complete: 2 View Indication: Pain EP Interpretation: Yes Interpretation: nonspecific bowel gas, no sbo, other - No masses Impression: Other Electronically Signed by: Electronically signed by Blayne Prince MD Last Vital Signs Date Time Temp Pulse Resp B/P (MAP) Pulse Ox O2 Delivery O2 Flow Rate FiO2 12/13/18 01:21 185/101 12/12/18 23:58 98.6 12/12/18 20:30 84 18 98 Room Air Status: improved Disposition: XFER SHT-TRM HOSP Condition: Serious Blayne Prince MD Dec 12, 2018 20:11
[2018-12-12 20:30] VITALS: BP 182/101
[2018-12-12 21:08] LABS: BASOPHILS % (AUTO) 1.7 % (0.0-2.0); EOSINOPHILS % (AUTO) 0.7 % (0.0-3.0); HEMATOCRIT 45.1 % (42.0-52.0); HEMOGLOBIN 14.5 G/DL (14.2-18.0); LYMPHOCYTES % (AUTO) 20.4 % (20.0-45.0); MEAN CORPUSCULAR VOLUME 81 FL (80-99); MONOCYTES % (AUTO) 6.4 % (1.0-10.0); NEUTROPHILS % (AUTO) 70.7 % (45.0-75.0); PLATELET COUNT 291 K/UL (150-450); RED BLOOD COUNT 5.56 M/UL (4.70-6.10); RED CELL DISTRIBUTION WIDTH 12.9 % (11.6-14.8)
[2018-12-12 21:22] LABS: ANION GAP 16 mmol/L (5-15); BLOOD UREA NITROGEN 15 mg/dL (7-18); CALCIUM 9.6 MG/DL (8.5-10.1); CARBON DIOXIDE 22 MMOL/L (21-32); CHLORIDE 101 MMOL/L (98-107); POTASSIUM 4.2 MMOL/L (3.5-5.1); SODIUM 139 MMOL/L (136-145)
[2018-12-12 21:26] LABS: ALANINE AMINOTRANSFERASE 15 U/L (12-78); ALBUMIN 3.7 G/DL (3.4-5.0); ALBUMIN/GLOBULIN RATIO 0.9 (1.0-2.7); ALKALINE PHOSPHATASE 84 U/L (46-116); ASPARTATE AMINO TRANSFERASE 11 U/L (15-37); BILIRUBIN,TOTAL 0.4 MG/DL (0.2-1.0); CREATINE KINASE 101 U/L (26-308)
[2018-12-12 21:38] LABS: APPEARANCE,URINE CLEAR; BILIRUBIN, URINE NEGATIVE (NEGATIVE); COLOR,URINE PALE YELLOW; GLUCOSE, URINE (UA) 4+ (NEGATIVE); KETONES,URINE 3+ (NEGATIVE); LEUKOCYTE ESTERASE ,URINE NEGATIVE (NEGATIVE); NITRITE,URINE NEGATIVE (NEGATIVE); PH,URINE 6 (4.5-8.0); PROTEIN,URINE NEGATIVE (NEGATIVE); UROBILINOGEN,URINE NORMAL MG/DL (0.0-1.0)
[2018-12-12 22:00] VITALS: BP 179/105
--- NOTE | 2018-12-12 22:00 | NUR ---
ED Nurse Note: PT CONTINUES TO REST IN BED, MEDICATED ORDERED, MEDS SLIGHTLY EFFECTIVE, PAIN LEVEL DECREASED TO 7/10 AND NAUSEA RESOLVED AT THIS TIME, IV SITE PATENT WITH FLUIDS INFUSING, REMAINS ONC ARDIAC MONITORING, NO CHANGES, WILL CONTINUE TO MONITOR.
[2018-12-12] MEDS ORDERED: Morphine Sulfate 4mg/ml Inj (IV USE ONLY) IVP ONE (22:45)
[2018-12-12] MEDS ORDERED: HYDROmorphone 1mg/ml Carpuject IVP ONE (23:30)
[2018-12-13] VITALS: BP 174/105
--- NOTE | 2018-12-13 | NUR ---
ED Nurse Note: PT CONTINUES TO REST IN BED, AMBULATED TO BATHROOM, TOLERATED WELL BUT CONTINUES TO C/O PAIN, TP RE-MEDICATED ORDERED, IV FLUIDS INFUSING, PT ALSO REMAINS WITH NAUSEA, PT TO BE TRANSFERRED TO ANOTHER HOSPITAL FOR CONTINUED CARE AND INSURANCE REASONS, PT IS AWARE, WILL CONTINUE TO MONITOR WHILE WAITING FOR TRANSFER.
--- NOTE | 2018-12-13 00:55 | NUR ---
ED Nurse Note: PLACED CALL TO [facility] AT [phone], S/W AMEYARN, REPORT GIVEN AND ALL PERTINENT INFO, PT NOTED WITH SLIGHTLY ELEVATED B/P, ORDERS GIVEN AND PT MEDICATED, AMBULANCE IS HERE FOR TRANSPORT, [id number], REPORT, ALL BELONGINGS, AND TRANSFER FORMS GIVEN TO MARCO MCCABE, PT BEING TAKEN VIA GURNEY, NAD NOTED DURING PT TRANSPORT.
[2018-12-13 01:10] VITALS: BP 171/77
[2018-12-13 01:21] VITALS: BP 185/101
--- NOTE | 2018-12-13 11:15 | Cardiology Report ---
APPROVED REPORT EKG Measurement Heart [id number] Normal sinus rhythm Nonspecific ST abnormality Abnormal ECG
--- NOTE | 2018-12-13 13:49 | Diagnostic Imaging Report ---
Indication: Abdominal pain Technique: Supine view of the abdomen Comparison: No comparison radiographs. Reference made to photoresist printer image from CT scan dated 07/24/2016 Findings: Single dilated loop of small bowel is seen in the left upper quadrant. The remainder the bowel gas is unremarkable. No masses or unusual calcifications. The bones are unremarkable Impression: Single dilated left upper quadrant small bowel loop, may represent a focal ileus No acute process otherwise
--- NOTE | 2018-12-13 14:01 | Diagnostic Imaging Report ---
Indication: Shortness of breath Technique: One view of the chest Comparison: none Findings: Lungs and pleural spaces are clear. Heart size is normal. Note that projection is somewhat lordotic. Surgical clips are seen in the left supraclavicular region. Findings are essentially unchanged Impression: No acute process
== END 2018-12-13 01:15 | disposition short-term general hospital (02) ==
LOC: EDBD 19:52 → EMR 20:05
DX: E11.43 Type 2 diabetes mellitus with diabetic autonomic (poly)neuropathy (principal); K31.84 Gastroparesis; I10 Essential (primary) hypertension; R10.84 Generalized abdominal pain; E78.5 Hyperlipidemia, unspecified; F12.10 Cannabis abuse, uncomplicated
CPT/HCPCS: 36415; 71045; 74018; 80053; 80307; 81003; 82550; 83690; 84484; 85025; 85610; 85730; 93005; 96361; 96374; 96375; 96376; 99285; J0360; J1170; J1200; J2270; J2405; J2765

== ENCOUNTER 2019-06-04 10:20 | Inpatient (IN) | payer OTHER ==
[~2019-06-04] VITALS: Ht 175.3 cm; Wt 88.5 kg
[2019-06-04] VITALS (12 sets, daily range): BP systolic 101–186; BP diastolic 69–106
--- NOTE | 2019-06-04 11:05 | NUR ---
ED Nurse Note:pt. came from home with hyperglycemia nausea abdominal and throat pain, pt. is A/Ox4 ambulatory, blood and urine sent to labs, given IV fluids and meds
[2019-06-04] MEDS: LR 1000ml 1,000 ML IV SCH ×2 (11:06→14:17)
[2019-06-04] MEDS ORDERED: Insulin Reg 100 units Premix 100 ML IVPB SCH ×3 (11:15→18:30)
[2019-06-04] MEDS ORDERED: Morphine Sulfate 4mg/ml Inj (IV USE ONLY) IVP ONE (11:15)
[2019-06-04 11:21] LABS: HEMATOCRIT 54.9 % (42.0-52.0); HEMOGLOBIN 17.1 G/DL (14.2-18.0); MEAN CORPUSCULAR VOLUME 82 FL (80-99); PLATELET COUNT 333 K/UL (150-450); RED BLOOD COUNT 6.69 M/UL (4.70-6.10); RED CELL DISTRIBUTION WIDTH 13.1 % (11.6-14.8); WHITE BLOOD COUNT 18.6 K/UL (4.8-10.8)
[2019-06-04] MEDS ORDERED: Insulin Reg 100 units Premix 100 ML IV STA (11:25)
[2019-06-04 11:29] LABS: ALANINE AMINOTRANSFERASE 16 U/L (12-78); ALBUMIN 4.3 G/DL (3.4-5.0); ALBUMIN/GLOBULIN RATIO 0.7 (1.0-2.7); ALKALINE PHOSPHATASE 138 U/L (46-116); ANION GAP 34 mmol/L (5-15); ASPARTATE AMINO TRANSFERASE 11 U/L (15-37); BILIRUBIN,TOTAL 0.6 MG/DL (0.2-1.0); BLOOD UREA NITROGEN 28 mg/dL (7-18); CALCIUM 10.8 MG/DL (8.5-10.1); CARBON DIOXIDE 12 MMOL/L (21-32); CHLORIDE 83 MMOL/L (98-107); CREATININE 1.9 MG/DL (0.55-1.30); POTASSIUM 4.4 MMOL/L (3.5-5.1); SODIUM 129 MMOL/L (136-145)
--- NOTE | 2019-06-04 11:36 | NUR ---
ED Nurse Note:pt. was given pain meds and started on insulin drip, pt. is sleeping now , will recheck BG
[2019-06-04 12:04] LABS: APPEARANCE,URINE CLEAR; BILIRUBIN, URINE NEGATIVE (NEGATIVE); COLOR,URINE PALE YELLOW; GLUCOSE, URINE (UA) 4+ (NEGATIVE); KETONES,URINE 4+ (NEGATIVE); LEUKOCYTE ESTERASE ,URINE NEGATIVE (NEGATIVE); NITRITE,URINE NEGATIVE (NEGATIVE); PH,URINE 5 (4.5-8.0); PROTEIN,URINE 2+ (NEGATIVE); UROBILINOGEN,URINE NORMAL MG/DL (0.0-1.0)
--- NOTE | 2019-06-04 12:06 | Diagnostic Imaging Report ---
EXAM: XR Chest, 1 View CLINICAL HISTORY: ALOC TECHNIQUE: Frontal view of the chest. COMPARISON: Chest x-ray dated 12/12/18 FINDINGS: Lungs: Unremarkable. The lungs appear clear. No focal consolidation. Pleural space: Unremarkable. The costophrenic angles are sharp. No visible pneumothorax. Heart: Unremarkable. No cardiomegaly. Mediastinum: Unremarkable. Bones/joints: Unremarkable. Tubes, lines and devices: Telemetry leads overlie the thorax. IMPRESSION: No acute findings.
--- NOTE | 2019-06-04 12:08 | Diagnostic Imaging Report ---
EXAM: XR Abdomen, 2 Views CLINICAL HISTORY: ABD PAIN TECHNIQUE: Frontal view of the abdomen/pelvis with upright view of the abdomen. COMPARISON: No relevant prior studies available. FINDINGS: Lower thorax: Lung bases appear clear. Intraperitoneal space: No free air. Gastrointestinal tract: Nonspecific mild gaseous distention of small bowel loops with maximum diameter of 3.5 cm. No evidence of pneumatosis intestinalis. Organs: The renal shadows are obscured by overlying bowel gas. No evidence of organomegaly. No abnormal calcifications in the abdomen or pelvis. Bones/joints: Unremarkable. IMPRESSION: Nonspecific mild gaseous distention of small bowel loops.
--- NOTE | 2019-06-04 12:20 | NUR ---
ED Nurse Note:BG still critical high, insulin drip rate was increased till 10units/hr per MD order
[2019-06-04] MEDS ORDERED: Insulin Human Regular 100units/ml 3ml IV ONE (12:45)
[2019-06-04] MEDS ORDERED: Lidocaine 2% Visc 15ml soln ORAL ONE (14:00)
[2019-06-04] MEDS ORDERED: Mylanta II UD 30ml ORAL ONE (14:00)
--- NOTE | 2019-06-04 14:04 | Emergency Room Report ---
History of Present Illness General Chief Complaint: Abdominal Pain Source: Patient Present Illness [facility] Paramedics were called because the patient had altered level of consciousness and abdominal pain. He is not taking his insulin for 2 days. Paramedics evaluated the patient said his blood sugar was high. Son gave 35 units of Basaglar insulin about 935. Paramedics did not transport the patient. Son brought the patient here. The patient is complaining about throat and abdominal pain. He says he has pain when he tries to swallow. He has not eaten for several days because he did not feel well and had abdominal pain and pain with swallowing. Patient admitted with DKA March 2018. Allergies: Coded Allergies: No Known Allergies (Verified , 01/08/07) Patient History Past Medical History: see triage record Social History: Denies: smoking, drug use - Prior Social History Narrative With and son Reviewed Nursing Documentation: PMH: Agreed; PSxH: Agreed Nursing Documentation-PMH Hx Cardiac Problems: Yes Hx Hypertension: Yes - hyperlipidemia Hx Diabetes: Yes Hx Cancer: No Hx Neurological Problems: No Review of Systems All Other Systems: negative except mentioned in HPI Physical Exam Vital Signs Date Time Temp Pulse Resp B/P (MAP) Pulse Ox O2 Delivery O2 Flow Rate FiO2 06/04/19 10:30 98.2 143 19 136/84 (101) 95 Room Air General Appearance: mild distress Eyes: bilateral eye normal inspection, bilateral eye PERRL, bilateral eye EOMI ENT: moist mucus membranes Procedures Critical Care Time Critical Care Time Total Critical Care Time: 90 min bedside evaluation and treatment excludes procedures (EKG). Reason for critical care: DKA, insulin drip, abdominal pain, metabolic acidosis , renal insufficiency Possible complications: hypotension, hypertension, GA, shock, arrhythmias, metabolic acidosis, end organ damage, respiratory failure. Interventions: Repeat evaluations, repeat Accu-Chek evaluations, insulin drip, analgesia Course: Patient presents with elevated glucose, altered level of consciousness and abdominal pain. Venous blood gas with acidosis and critically high glucose by Accu-Chek. DKA resuscitation begun. Insulin drip also begun. Potassium normal and not needing replacement. Acidosis consideration for bicarb but borderline. Patient complaining about pain and analgesia administered. Discussion with nursing staff for insulin rate. Repeat Accu-Chek still high and bolus given. Repeat Accu-Chek improved. Pain improved however complaining about 6 pain with swallowing. Pepcid, Mylanta and viscous lidocaine administered. Some relief with these. Patient admitted to intensive care unit. Blood sugar improving. Repeat Chem-6 ordered. Potassium holding. Glucose still high and lactated Ringer's continue. Discussed with admitting physician. Discussed findings with patient and family. Discussed more appropriate insulin use with poor oral intake in the future. Consultations: nursing staff, family, admitting physician Performed by: Dr. Prince Tolerated well condition = critical Medical Decision Making Diagnostic Impression: Primary Impression: Diabetic ketoacidosis Qualified Codes: E10.10 - Type 1 diabetes mellitus with ketoacidosis without coma Additional Impressions: Abdominal pain Qualified Codes: R10.13 - Epigastric pain Esophageal pain Leukocytosis Qualified Codes: D72.828 - Other elevated white blood cell count Szcaq-Akfjgzrgo-Gzeax (WPW) pattern Renal failure Qualified Codes: N17.9 - Acute kidney failure, unspecified ER Course Patient presents with hyperglycemia, altered mentation and abdominal pain. Differential includes diabetic ketoacidosis, hyperglycemic coma, pancreatitis, occult infection amongst others. Evaluation with Accu-Chek, chest x-ray, EKG, venous blood gas and other labs. Initial aggressive IV hydration begun. Abdomen is nonsurgical at this time. Patient placed on certified maintenance welder. Complex presentation. Venous blood gas with acidosis. Insulin drip begun. IV hydration continuing. EKG with Huwju-Sjfmipysx-Ufkva. Patient complaining about pain and pain treated. Labs with leukocytosis, metabolic acidosis, urine clear, renal dysfunction. Chest x-ray clear. Accu-Chek after starting drip at 8 units, 1 hour is still critically high. Insulin bolus and increasing drip to 10 units/h ordered. Accu-Chek 1 hour after bolus 546. Continue drip. Patient complaining about throat pain. Repeating Chem-12. Pepcid Mylanta viscous lidocaine given to patient. Morphine had been given. Pain improved. Discussed with admitting physician. Dr. Ramirez examined the patient in the emergency department. Patient improved but still critical. After admission patient discussed with admitting physician. Blood cultures and antibiotics suggested. In addition admitting physician ordering a CT of the abdomen. I recommended including chest and neck. This was going to be performed. Laboratory Tests Test 06/04/19 10:45 06/04/19 10:59 06/04/19 16:00 White Blood Count 18.6 K/UL (4.8-10.8) H 21.7 K/UL (4.8-10.8) H Red Blood Count 6.69 M/UL (4.70-6.10) H 6.28 M/UL (4.70-6.10) H Hemoglobin 17.1 G/DL (14.2-18.0) 16.2 G/DL (14.2-18.0) Hematocrit 54.9 % (42.0-52.0) H 49.3 % (42.0-52.0) Mean Corpuscular Volume 82 FL (80-99) 79 FL (80-99) L Mean Corpuscular Hemoglobin 25.5 PG (27.0-31.0) L 25.8 PG (27.0-31.0) L Mean Corpuscular Hemoglobin Concent 31.1 G/DL (32.0-36.0) L 32.8 G/DL (32.0-36.0) Red Cell Distribution Width 13.1 % (11.6-14.8) 12.5 % (11.6-14.8) Platelet Count 333 K/UL (150-450) 321 K/UL (150-450) Mean Platelet Volume 9.9 FL (6.5-10.1) 9.4 FL (6.5-10.1) Neutrophils (%) (Auto) % (45.0-75.0) 83.2 % (45.0-75.0) H Lymphocytes (%) (Auto) % (20.0-45.0) 9.3 % (20.0-45.0) L Monocytes (%) (Auto) % (1.0-10.0) 5.9 % (1.0-10.0) Eosinophils (%) (Auto) % (0.0-3.0) 0.0 % (0.0-3.0) Basophils (%) (Auto) % (0.0-2.0) 1.5 % (0.0-2.0) Differential Total Cells Counted 100 Neutrophils % (Manual) 84 % (45-75) H Lymphocytes % (Manual) 10 % (20-45) L Monocytes % (Manual) 6 % (1-10) Eosinophils % (Manual) 0 % (0-3) Basophils % (Manual) 0 % (0-2) Band Neutrophils 0 % (0-8) Platelet Estimate Adequate Platelet Morphology Normal Red Blood Cell Morphology Normal Urine Color Pale yellow Urine Appearance Clear Urine pH 5 (4.5-8.0) Urine Specific [place] 1.020 (1.005-1.035) Urine Protein 2+ (NEGATIVE) H Urine Glucose (UA) 4+ (NEGATIVE) H Urine Ketones 4+ (NEGATIVE) H Urine Blood 1+ (NEGATIVE) H Urine Nitrite Negative (NEGATIVE) Urine Bilirubin Negative (NEGATIVE) Urine Urobilinogen Normal MG/DL (0.0-1.0) Urine Leukocyte Esterase Negative (NEGATIVE) Urine RBC 2-4 /HPF (0 - 0) H Urine WBC 0-2 /HPF (0 - 0) Urine Squamous Epithelial Cells Occasional /LPF Urine Bacteria Occasional /HPF (NONE) Sodium Level Pending 137 MMOL/L (136-145) Potassium Level Pending 4.4 MMOL/L (3.5-5.1) Chloride Level Pending 94 MMOL/L (98-107) L Carbon Dioxide Level Pending 16 MMOL/L (21-32) L Anion Gap 34 mmol/L (5-15) H 27 mmol/L (5-15) H Blood Urea Nitrogen Pending 27 mg/dL (7-18) H Creatinine Pending 1.7 MG/DL (0.55-1.30) H Estimate Glomerular Filtration Rate Pending 50.4 mL/min (>60) Glucose Level Pending 406 MG/DL (74-106) #H Hemoglobin A1c 10.6 % (4.3-6.0) H Calcium Level Pending 10.3 MG/DL (8.5-10.1) H Magnesium Level 2.2 MG/DL (1.8-2.4) 1.9 MG/DL (1.8-2.4) Total Bilirubin 0.6 MG/DL (0.2-1.0) 0.7 MG/DL (0.2-1.0) Aspartate Amino Transferase (AST) 11 U/L (15-37) L 10 U/L (15-37) L Alanine Aminotransferase (ALT) 16 U/L (12-78) 17 U/L (12-78) Alkaline Phosphatase 138 U/L (46-116) H 129 U/L (46-116) H Troponin I 0.000 ng/mL (0.000-0.056) Total Protein 10.1 G/DL (6.4-8.2) H 8.9 G/DL (6.4-8.2) H Albumin 4.3 G/DL (3.4-5.0) 4.1 G/DL (3.4-5.0) Globulin 5.8 g/dL 4.8 g/dL Albumin/Globulin Ratio 0.7 (1.0-2.7) L 0.9 (1.0-2.7) L Lipase 140 U/L (73-393) Acetone Level Positive-moderate (NEGATIVE) Positive-moderate (NEGATIVE) Venous Blood pH 7.130 Venous Blood Partial Pressure CO2 37.3 Venous Blood Partial Pressure O2 45.4 Venous Blood HCO3 12.1 Venous Blood Total Carbon Dioxide 37.3 Venous Blood Base Excess -16.2 Venous Blood Carboxyhemoglobin 0.7 % (0.5-1.5) Methemoglobin 0.4 Phosphorus Level 3.8 MG/DL (2.5-4.9) Creatine Kinase MB 1.7 NG/ML (0.0-3.6) EKG Diagnostic Results Rate: tachycardiac ST Segments: no acute changes - WPW Rhythm Strip Diag. Results EP Interpretation: yes Rhythm: no PVC's, no ectopy, other - ST PVCs Chest X-Ray Diagnostic Results Chest X-Ray Diagnostic Results : Chest X-Ray Ordered: Yes # of Views/Limited/Complete: 1 View Indication: Other EP Interpretation: Yes Interpretation: no consolidation, no effusion, no pneumothorax Impression: No acute disease Electronically Signed by: Electronically signed by Blayne Prince MD Other X-Ray Diagnostic Results Other X-Ray Diagnostic Results : X-Ray ordered: Abdomen # of Views/Limited Vs Complete: 2 View Indication: Pain EP Interpretation: Yes Interpretation: nonspecific bowel gas, no sbo, other - Small bowel prominence Impression: Other Electronically Signed by: Electronically signed by Blayne Prince MD Last Vital Signs Date Time Temp Pulse Resp B/P (MAP) Pulse Ox O2 Delivery O2 Flow Rate FiO2 06/04/19 19:00 113 18 158/79 100 Nasal Cannula 2.0 06/04/19 15:10 98.2 Status: improved Disposition: ADMITTED INPATIENT Condition: Critical Referrals: NON PHYSICIAN (PCP) Blayne Prince MD Jun 04, 2019 14:04
--- NOTE | 2019-06-04 15:10 | NUR ---
ED Nurse Note:called report to ICU given to pt. Niecy taken to unit
--- NOTE | 2019-06-04 15:15 | NUR ---
NURSE NOTES: Received new admission from ER, via [facility]. Report was received from Deanna RENE. Pt is awake, alert, oriented x4, and ambulatory. Pt's belonging's list was checked and signed in front of the pt with the transferring nurse. Pt has cellphone at bedside. Pt is currently on room air, at 96% O2Sat with with bilateral clear lung sounds and no reports of respiratory distress. ST on monitoring specialist, heart rate fluctuating from 110-120. Temp 98.8F axillary. Right AC peripheral IV access is noted #20G, with Insulin drip at 10units/hr. Pt reports nausea. Abdomen is large, round, soft, nontender to touch with hypoactive bowel sounds. Skin is intact. Pt uses urinal at bedside. Will contact primary MD for new admission orders and follow plan of care.
[2019-06-04] MEDS ORDERED: Morphine Sulfate 2mg/ml Inj(IV/IM USE ONLY) IVP PRN ×3 (15:30→15:45)
[2019-06-04] MEDS ORDERED: Milk of Magnesia 30ml Ud ORAL PRN (15:30)
[2019-06-04] MEDS ORDERED: D5 1/2NS w/KCl 20mEq 1,000 ML IV PRN (16:00)
[2019-06-04] MEDS ORDERED: NS w/KCl 20mEq 1000ml 1,000 ML IV PRN (16:00)
--- NOTE | 2019-06-04 16:00 | NUR ---
NURSE NOTES: Pt is placed on 2L of oxygen via nasal cannula for O2Sat desaturation to low 90's. Pt currently denies any pain or discomfort. Bedside 12lead ECG was done per MD order, confirming ST. IV fluid is infusing NS w/KCL 20meq at 125ml/hour, NS wide open, and Insulin per MD order at 0.14units/kg/hour. 2nd peripheral IV access was started on left FA #20G. Pt used urinal at bedside, with output of clear/yellow urine.
[2019-06-04 16:35] LABS: HEMATOCRIT 49.3 % (42.0-52.0); HEMOGLOBIN 16.2 G/DL (14.2-18.0); MEAN CORPUSCULAR VOLUME 79 FL (80-99); PLATELET COUNT 321 K/UL (150-450); RED BLOOD COUNT 6.28 M/UL (4.70-6.10); RED CELL DISTRIBUTION WIDTH 12.5 % (11.6-14.8); WHITE BLOOD COUNT 21.7 K/UL (4.8-10.8)
[2019-06-04 16:36] LABS: LYMPHOCYTES % (AUTO) 9.3 % (20.0-45.0); MONOCYTES % (AUTO) 5.9 % (1.0-10.0); NEUTROPHILS % (AUTO) 83.2 % (45.0-75.0)
[2019-06-04 16:37] LABS: BASOPHILS % (AUTO) 1.5 % (0.0-2.0)
[2019-06-04 17:12] LABS: ANION GAP 27 mmol/L (5-15); BLOOD UREA NITROGEN 27 mg/dL (7-18); CALCIUM 10.3 MG/DL (8.5-10.1); CARBON DIOXIDE 16 MMOL/L (21-32); CHLORIDE 94 MMOL/L (98-107); CREATININE 1.7 MG/DL (0.55-1.30); POTASSIUM 4.4 MMOL/L (3.5-5.1); SODIUM 137 MMOL/L (136-145)
[2019-06-04 17:16] LABS: ALANINE AMINOTRANSFERASE 17 U/L (12-78); ALBUMIN 4.1 G/DL (3.4-5.0); ALBUMIN/GLOBULIN RATIO 0.9 (1.0-2.7); ALKALINE PHOSPHATASE 129 U/L (46-116); ASPARTATE AMINO TRANSFERASE 10 U/L (15-37); BILIRUBIN,TOTAL 0.7 MG/DL (0.2-1.0)
[2019-06-04 17:44] LABS: PHOSPHORUS 3.8 MG/DL (2.5-4.9)
--- NOTE | 2019-06-04 18:00 | NUR ---
NURSE NOTES: Pt was administered Zofran per PRN order for nausea. Insulin drip is infusing at ordered set rate of 13.01ml/hour. Glucose level is currently at 252. Pt remains ST on monitoring analyst. Denies any pain at this time.
[2019-06-04] MEDS ORDERED: Insulin Human Regular 100units/ml 3ml IV PRN ×2 (18:30)
--- NOTE | 2019-06-04 19:00 | NUR ---
NURSE NOTES: Order was received to switch Insulin drip to Algorithm 1. Insulin drip rate is now at 2.5units/hr for blood glucose of 232.
--- NOTE | 2019-06-04 19:15 | NUR ---
HAND-OFF: Report given to Amy RENE. Endorsed plan of care.
--- NOTE | 2019-06-04 19:30 | NUR ---
NURSE NOTES: Received report from Niecy RENE. patient in bed awake,alert able to make needs known to staff. Denies any pain or discomfort. On Insulin drip algo 1 at 2.5mls patient asymptomatic. Urinal at bedside. encouraged patient to verbalize needs, fears and feelings to staff. no s/s of acute distress noted will continue plan of care.
[2019-06-04] MEDS: Insulin Rate Change 1 Each MISC PRN (20:00)
--- NOTE | 2019-06-04 21:22 | NUR ---
NURSE NOTES: Blood glucose 226mg/dl Changed Insulin drip to algorithm 2.
--- NOTE | 2019-06-04 21:23 | History & Physical ---
History of Present Illness General Date patient seen: Jun 04, 2019 Time patient seen: 04:00 Reason for Hospitalization: Abdominal Pain Present Illness HPI This is a 58-year-old male with a past medical history of diabetes mellitus type 2 currently on home insulin, diagnosed when he was an adult, and a past medical history of high blood pressure, denies history of heart attack or stroke , who presents emergency room after being sent here for abnormal labs per patient. He states that he has been taking less of his insulin at home than he usually does because he has not been feeling well for the past couple days and his doctor told him to decrease the dosing. However upon arrival today patient is found to be in diabetic ketoacidosis with an elevated blood acetone level and also an anion gap with metabolic acidosis. Patient has been admitted to the ICU on DKA drip protocol and endocrinology has been consulted. Patient is also complaining of a sore throat and a cough and he does have leukocytosis which may be reactive however will place him on Zosyn IV as he does have neutrophil predominance. Chest x-ray and abdominal x-ray noted. Allergies: Coded Allergies: No Known Allergies (Verified , 01/08/07) Medication History Scheduled Aspirin* (Aspir 81*), 81 MG ORAL DAILY, (Reported) Famotidine (Pepcid), 40 MG PO DAILY Insulin Aspart (Novolog Flexpen), 8 SUBQ ACHS, (Reported) Insulin Detemir (Levemir Flexpen), 36 SUBQ AC, (Reported) Lisinopril* (Lisinopril*), 10 MG ORAL DAILY, (Reported) Metformin Hcl* (Metformin Hcl*), 1,000 MG ORAL BID, (Reported) Omeprazole (Omeprazole), 20 MG ORAL DAILY Simvastatin (Zocor), 10 MG ORAL BEDTIME, (Reported) Patient History Healthcare decision maker Resuscitation status Full Code Advanced Directive on File Review of Systems Review of Symptoms General ROS: Lethargy, fatigue, sore throat Psychological ROS: no depression or mood changes, no memory loss Ophthalmic ROS: no visual changes or eye irritation ENT ROS: no nasal congestion, hearing loss, dizziness Allergy and Immunology ROS: no allergic symptoms or urticaria Hematological and Lymphatic ROS: no swollen glands, unusual bleeding or bruising Endocrine ROS: no polyuria, polydipsia, weight changes, temperature intolerance Respiratory ROS: no cough, shortness of breath, or wheezing Cardiovascular ROS: no chest pain or dyspnea on exertion Gastrointestinal ROS: Nausea and vomiting Musculoskeletal ROS: no myalgias or arthralgias Neurological ROS: no TIA or stroke symptoms Dermatological ROS: no new or changing skin lesions, rashes or pruritis Physical Exam Physical Exam General appearance: Mild distress, thirsty, complaining of nausea and vomiting Head: Normocephalic, without obvious abnormality, atraumatic Eyes: conjunctivae/corneas clear. PERRL, EOM's intact. Fundi benign Throat: Lips, mucosa, and tongue normal. Teeth and gums normal Neck: supple, symmetrical, trachea midline, no adenopathy, thyroid: not enlarged, symmetric, no tenderness/mass/nodules, no carotid bruit and no JVD Lungs: clear to auscultation bilaterally Heart: Sinus Tachycardia Abdomen: mildly TTP Extremities: extremities normal, atraumatic, no cyanosis or edema Pulses: 2+ and symmetric Skin: Skin color, texture, turgor normal. No rashes or lesions Neurologic: Grossly normal Last 24 Hour Vital Signs Date Time Temp Pulse Resp B/P (MAP) Pulse Ox O2 Delivery O2 Flow Rate FiO2 06/04/19 19:00 113 18 158/79 100 Nasal Cannula 2.0 06/04/19 18:00 121 18 140/85 100 Nasal Cannula 2.0 06/04/19 17:00 119 18 137/85 100 Nasal Cannula 2.0 06/04/19 16:00 Nasal Cannula 2.0 06/04/19 16:00 2.0 06/04/19 16:00 121 18 148/92 100 Nasal Cannula 2.0 06/04/19 15:46 Nasal Cannula 2.0 06/04/19 15:18 131 06/04/19 15:10 98.2 105 19 154/96 97 Room Air 06/04/19 15:00 98.8 127 21 146/98 98 Room Air 06/04/19 14:28 98.2 130 19 168/98 95 Room Air 06/04/19 11:53 98.2 06/04/19 11:07 122 19 Room Air 06/04/19 11:07 98.2 122 19 186/106 95 Room Air 06/04/19 10:30 98.2 143 19 136/84 (101) 95 Room Air Laboratory Tests Test 06/04/19 10:45 06/04/19 10:59 06/04/19 16:00 White Blood Count 18.6 K/UL (4.8-10.8) H 21.7 K/UL (4.8-10.8) H Red Blood Count 6.69 M/UL (4.70-6.10) H 6.28 M/UL (4.70-6.10) H Hemoglobin 17.1 G/DL (14.2-18.0) 16.2 G/DL (14.2-18.0) Hematocrit 54.9 % (42.0-52.0) H 49.3 % (42.0-52.0) Mean Corpuscular Volume 82 FL (80-99) 79 FL (80-99) L Mean Corpuscular Hemoglobin 25.5 PG (27.0-31.0) L 25.8 PG (27.0-31.0) L Mean Corpuscular Hemoglobin Concent 31.1 G/DL (32.0-36.0) L 32.8 G/DL (32.0-36.0) Red Cell Distribution Width 13.1 % (11.6-14.8) 12.5 % (11.6-14.8) Platelet Count 333 K/UL (150-450) 321 K/UL (150-450) Mean Platelet Volume 9.9 FL (6.5-10.1) 9.4 FL (6.5-10.1) Neutrophils (%) (Auto) % (45.0-75.0) 83.2 % (45.0-75.0) H Lymphocytes (%) (Auto) % (20.0-45.0) 9.3 % (20.0-45.0) L Monocytes (%) (Auto) % (1.0-10.0) 5.9 % (1.0-10.0) Eosinophils (%) (Auto) % (0.0-3.0) 0.0 % (0.0-3.0) Basophils (%) (Auto) % (0.0-2.0) 1.5 % (0.0-2.0) Differential Total Cells Counted 100 Neutrophils % (Manual) 84 % (45-75) H Lymphocytes % (Manual) 10 % (20-45) L Monocytes % (Manual) 6 % (1-10) Eosinophils % (Manual) 0 % (0-3) Basophils % (Manual) 0 % (0-2) Band Neutrophils 0 % (0-8) Platelet Estimate Adequate Platelet Morphology Normal Red Blood Cell Morphology Normal Urine Color Pale yellow Urine Appearance Clear Urine pH 5 (4.5-8.0) Urine Specific [place] 1.020 (1.005-1.035) Urine Protein 2+ (NEGATIVE) H Urine Glucose (UA) 4+ (NEGATIVE) H Urine Ketones 4+ (NEGATIVE) H Urine Blood 1+ (NEGATIVE) H Urine Nitrite Negative (NEGATIVE) Urine Bilirubin Negative (NEGATIVE) Urine Urobilinogen Normal MG/DL (0.0-1.0) Urine Leukocyte Esterase Negative (NEGATIVE) Urine RBC 2-4 /HPF (0 - 0) H Urine WBC 0-2 /HPF (0 - 0) Urine Squamous Epithelial Cells Occasional /LPF Urine Bacteria Occasional /HPF (NONE) Sodium Level Pending 137 MMOL/L (136-145) Potassium Level Pending 4.4 MMOL/L (3.5-5.1) Chloride Level Pending 94 MMOL/L (98-107) L Carbon Dioxide Level Pending 16 MMOL/L (21-32) L Anion Gap 34 mmol/L (5-15) H 27 mmol/L (5-15) H Blood Urea Nitrogen Pending 27 mg/dL (7-18) H Creatinine Pending 1.7 MG/DL (0.55-1.30) H Estimat Glomerular Filtration Rate Pending 50.4 mL/min (>60) Glucose Level Pending 406 MG/DL (74-106) #H Hemoglobin A1c 10.6 % (4.3-6.0) H Calcium Level Pending 10.3 MG/DL (8.5-10.1) H Magnesium Level 2.2 MG/DL (1.8-2.4) 1.9 MG/DL (1.8-2.4) Total Bilirubin 0.6 MG/DL (0.2-1.0) 0.7 MG/DL (0.2-1.0) Aspartate Amino Transf (AST/SGOT) 11 U/L (15-37) L 10 U/L (15-37) L Alanine Aminotransferase (ALT/SGPT) 16 U/L (12-78) 17 U/L (12-78) Alkaline Phosphatase 138 U/L (46-116) H 129 U/L (46-116) H Troponin I 0.000 ng/mL (0.000-0.056) Total Protein 10.1 G/DL (6.4-8.2) H 8.9 G/DL (6.4-8.2) H Albumin 4.3 G/DL (3.4-5.0) 4.1 G/DL (3.4-5.0) Globulin 5.8 g/dL 4.8 g/dL Albumin/Globulin Ratio 0.7 (1.0-2.7) L 0.9 (1.0-2.7) L Lipase 140 U/L (73-393) Acetone Level Positive-moderate (NEGATIVE) Positive-moderate (NEGATIVE) Venous Blood pH 7.130 Venous Blood Partial Pressure CO2 37.3 Venous Blood Partial Pressure O2 45.4 Venous Blood HCO3 12.1 Venous Blood Total Carbon Dioxide 37.3 Venous Blood Base Excess -16.2 Venous Blood Carboxyhemoglobin 0.7 % (0.5-1.5) Methemoglobin 0.4 Phosphorus Level 3.8 MG/DL (2.5-4.9) Creatine Kinase MB 1.7 NG/ML (0.0-3.6) Microbiology Date/Time Source Procedure Growth Status 06/04/19 13:40 Rectum Received Height (Feet): 5 Height (Inches): 9.00 Weight (Pounds): 205 Medications Current Medications Medications (Trade) Dose Ordered Sig/Pasha Route PRN Reason Start Time Stop Time Status Last Admin Dose Admin Acetaminophen (Tylenol) 650 mg Q4H PRN ORAL Fever 06/04/19 15:30 07/04/19 15:29 Acetaminophen (Tylenol) 650 mg Q4H PRN ORAL Mild Pain (Pain Scale 1-3) 06/04/19 15:30 07/04/19 15:29 Azithromycin 500 mg/Dextrose 275 ml @ 275 mls/hr Q24HRS IV 06/04/19 22:00 06/10/19 22:59 Bisacodyl (Dulcolax) 10 mg DAILYPRN PRN RECTAL Constipation 06/04/19 15:30 07/04/19 15:29 Clonidine HCl (Catapres Tab) 0.1 mg Q6H PRN ORAL For High Blood Pressure 06/04/19 20:30 07/04/19 20:29 Dextrose (Dextrose 50%) 25 ml Q30M PRN IV Hypoglycemia 06/04/19 20:30 07/04/19 20:29 Dextrose (Dextrose 50%) 50 ml Q30M PRN IV Hypoglycemia 06/04/19 20:30 07/04/19 20:29 Dextrose/ Electrolytes 1,000 ml @ 125 mls/hr Q8H PRN IV blood sugar less than 250 06/04/19 16:00 07/04/19 15:59 Insulin Aspart (NovoLOG) BEFORE MEALS AND HS SUBQ 06/05/19 06:30 07/05/19 06:29 Insulin Aspart (NovoLOG) 10 units NOVOTIAC SUBQ 06/05/19 06:30 07/05/19 06:29 Insulin Detemir (Levemir) 20 units EVERY 12 HOURS SUBQ 06/05/19 21:00 07/05/19 20:59 Insulin Human (Reg)/Sodium Chloride 100 ml @ 0 mls/hr Q24H IVPB 06/04/19 18:30 06/05/19 07:00 06/04/19 19:15 Insulin Human Regular (NovoLIN R) 5 units PRN PRN IV BS 200-299 06/04/19 18:30 06/05/19 07:00 Insulin Human Regular (NovoLIN R) 10 units PRN PRN IV BS=>300 06/04/19 18:30 06/05/19 07:00 Magnesium Hydroxide (Mom) 30 ml HSPRN PRN ORAL Constipation 06/04/19 15:30 07/04/19 15:29 Miscellaneous Medication (Insulin Rate Change) 1 ea PRN PRN MISC HYPERGLYCEMIA 06/04/19 18:30 06/05/19 07:00 06/04/19 20:00 Morphine Sulfate (Morphine Sulfate) 1 mg Q4H PRN IVP Mild Pain (Pain Scale 1-3) 06/04/19 15:45 06/11/19 15:29 Morphine Sulfate (Morphine Sulfate) 2 mg Q4H PRN IVP Moderate Pain (Pain Scale 4-6) 06/04/19 15:30 06/11/19 15:29 Ondansetron HCl (Zofran) 4 mg Q6H PRN IVP Nausea & Vomiting 06/04/19 18:00 07/04/19 17:59 06/04/19 18:14 Pantoprazole (Protonix) 40 mg DAILY IV 06/05/19 09:00 07/05/19 08:59 Potassium Chloride/Sodium Chloride 1,000 ml @ 125 mls/hr Q8H PRN IV Blood Sugar is more than 250 06/04/19 16:00 07/04/19 15:59 06/04/19 16:25 Assessment/Plan Assessment/Plan: Assessment #Diabetic ketoacidosis, ABG noted, pending lactic acid, patient endorses not taking his usual insulin dosing #Leukocytosis with neutrophil shift predominance, patient has had a sore throat and cough, suspect that patient may have pneumonia but dehydration is preventing that from showing up on imaging #Acute renal injury #Anemia of chronic disease Plan DKA protocol, admit to ICU, management per endocrinology, aggressive fluid resuscitation and electrolyte repletion, n.p.o. Blood cultures, initiate Rocephin and azithromycin IV, repeat chest x-ray after patient has been adequately hydrated, rapid influenza Monitor renal function, bolus as needed, urine output should be at least 45 cc/h GI and DVT prophylaxis [facility] declaration Greater then 70 minutes was spent on this case Nola Ramirez D.O. Jun 04, 2019 21:23
[2019-06-04] MEDS: Insulin Reg 100 units Premix 100 ML IVPB SCH (21:41)
[2019-06-04] MEDS: NS w/KCl 20mEq 1000ml 1,000 ML IV SCH (21:44)
[2019-06-04] MEDS: Azithromycin 500 MG in D5W 275 ML IV SCH (22:19)
--- NOTE | 2019-06-04 22:32 | NUR ---
NURSE NOTES: Called Bioinformatics Research Technician spoke with Juan David regarding the CT abd pelvis without contrast order but Dr Ramirez ordered Ready cat 2, per patient he wants the test in am unable to swallow the Barium sulfate oral susp at this time patient with episode of vomiting from previous shift. explained the importance v/s risk and benefits per patient he wants it in am. will inform MD in am. Charge nurse aware.
[2019-06-04] MEDS ORDERED: cefTRIAXone 1 GM in D5W 55 ML IVPB SCH (23:00)
--- NOTE | 2019-06-04 23:26 | NUR ---
NURSE NOTES: called Dr. Andrews answering service regarding patient wants the CT abd pelvis done in am, will follow up.
--- NOTE | 2019-06-04 23:43 | NUR ---
NURSE NOTES: Dr Ramirez called back and made aware of patient wants the ct scan in am due to unable to swallow the barium sulfate per MD stat no contrast to check for possible appendicitis, spoke with patient and explained the reason why the MD order CT scan of abd. patient understand and agreed. called vehicle glass technician spoke with Jason will be here in 30 minutes. charge nurse aware.
[2019-06-05] VITALS (30 sets, daily range): BP systolic 99–173; BP diastolic 39–113
--- NOTE | 2019-06-05 00:35 | NUR ---
NURSE NOTES: Accompanied patient for CT scan of abdomen via gurney accompanied by isotope technician and 2 RN's with portable awake overnight monitor and cardiac transport box. patient on 2L oxygen via N/C satting 100%. Urinal and basin at bed. HOB elevated. patient tolerated the procedure.
--- NOTE | 2019-06-05 00:50 | NUR ---
NURSE NOTES: patient assisted back to room via CryoocyterLost My Name. patient tolerated the procedure. will follow up the result. pt used urinal with 300cc urine output dark rebecca color. no s/s of acute distress noted. no s/s of hypo/hyperglycemia. satting 100% with 2L oxygen via N/C.
--- NOTE | 2019-06-05 01:20 | Diagnostic Imaging Report ---
Indication: Abdominal pain Technique: Spiral acquisitions obtained through the abdomen and pelvis. No oral contrast, reason not stated. No IV contrast utilized, reason not stated. Multiplanar reconstructions were generated. Total dose length product 569 mGycm. CTDIvol(s) 9 mGy. Dose reduction achieved using automated exposure control Comparison: 07/24/2016 Findings: The appendix is normal. There are scattered colonic diverticula. No evidence of acute diverticulitis. No small bowel distention. No free or loculated intraperitoneal gas or fluid is evident. Distal esophagus demonstrates equivocal minimal wall thickening. Stomach, duodenum are unremarkable. Lack of IV contrast limits assessment of solid organs. The gallbladder, liver, bile ducts, pancreas, spleen, adrenals, kidneys are unremarkable. No retroperitoneal or mesenteric mass or adenopathy. The bladder is distended. The prostate is markedly enlarged, measuring 7 cm transverse diameter. There is also evident previously. The included lung bases demonstrate some dependent atelectatic changes, are otherwise clear. The bones demonstrate mild degenerative spondylosis changes. Impression: Equivocal minimal distal esophageal wall thickening, could indicate esophagitis if real. No acute abnormality otherwise Colonic diverticulosis. No evidence of diverticulitis Prostatomegaly, also previously reported This agrees with the preliminary interpretation provided overnight by [facility] teleradiology service. The CT scanner at [facility] is accredited by the [place] [employer] and the scans are performed using protocols designed to limit radiation exposure to as low as reasonably achievable to attain images of sufficient resolution adequate for diagnostic evaluation.
--- NOTE | 2019-06-05 02:00 | NUR ---
NURSE NOTES: Left message to Dr. Ramirez regarding CT abd result.
[2019-06-05] MEDS: Vancomycin 750 MG in NS 275 ML IVPB SCH ×2 (02:17→12:14)
[2019-06-05] MEDS: Insulin Rate Change 1 Each MISC PRN (04:00)
--- NOTE | 2019-06-05 04:00 | NUR ---
NURSE NOTES: patient blood glucose 81mg/dl Algo 2 insulin drip at 0.2ml, patient asymptomatic. no s/s of acute distress noted. call light within easy reach.Urinal at bedside. frequent visual checks continue. will continue plan of acre.
[2019-06-05 05:25] LABS: BASOPHILS % (AUTO) 2.6 % (0.0-2.0); EOSINOPHILS % (AUTO) 0.4 % (0.0-3.0); HEMATOCRIT 42.9 % (42.0-52.0); HEMOGLOBIN 14.1 G/DL (14.2-18.0); MEAN CORPUSCULAR VOLUME 78 FL (80-99); NEUTROPHILS % (AUTO) 70.1 % (45.0-75.0); PLATELET COUNT 260 K/UL (150-450); RED BLOOD COUNT 5.51 M/UL (4.70-6.10); RED CELL DISTRIBUTION WIDTH 12.3 % (11.6-14.8); WHITE BLOOD COUNT 16.7 K/UL (4.8-10.8)
[2019-06-05 05:40] LABS: ALANINE AMINOTRANSFERASE 12 U/L (12-78); ALBUMIN 3.1 G/DL (3.4-5.0); ALBUMIN/GLOBULIN RATIO 0.7 (1.0-2.7); ALKALINE PHOSPHATASE 88 U/L (46-116); ANION GAP 7 mmol/L (5-15); ASPARTATE AMINO TRANSFERASE 13 U/L (15-37); BILIRUBIN,TOTAL 0.4 MG/DL (0.2-1.0); BLOOD UREA NITROGEN 15 mg/dL (7-18); CARBON DIOXIDE 27 MMOL/L (21-32); CHLORIDE 105 MMOL/L (98-107); POTASSIUM 3.7 MMOL/L (3.5-5.1); SODIUM 139 MMOL/L (136-145)
--- NOTE | 2019-06-05 06:00 | NUR ---
NURSE NOTES: patient in bed sleeping comfortably. no s/s of hypo/hyperglycemia. no s/s of acute distress noted. no n/v. call light within easy reach. will continue plan of care.
[2019-06-05] MEDS: Piperacillin/Tazobactam 3.375 GM in NS 110 ML IVPB SCH ×4 (06:14→22:00)
[2019-06-05] MEDS: NovoLOG Insulin Flexpen SUBQ SCH ×6 (06:15→17:21)
[2019-06-05] MEDS: NS w/KCl 20mEq 1000ml 1,000 ML IV SCH (07:15)
--- NOTE | 2019-06-05 07:20 | NUR ---
HAND-OFF: Report given to Xavier RENE.
--- NOTE | 2019-06-05 07:22 | NUR ---
NURSE NOTES: LATE ENTRY: RECEIVED ORDER FROM JAILYN Cox PT IN BED. A/OX4. VS 95, 114/54, SPO2 95%, RR 17. PUPILS DANIEL 3MM. GAG PRESENT. STRENGTH 5/5. PT ON 2L NC. DIMINISHED. BILATERAL RADIAL PULSES PRESENT. ABDOMEN ROUND, BOWEL SOUNDS HYPERACTIVE. NO BM AT THIS TIME. PT DIET CCHO. URINAL AT BEDSIDE, YELLOW URINE. SKIN INTACT. IV ACCESS RT AC 20G, LT WRIST 22G.NS W/ 20KCL AT 100ML/HR. A FEBRILE. ACCU CHECK 81. STANDARD PRECAUTIONS. CALL LIGHT IN REACH. BED ALARM ON. CALL LIGHT IN REACH. BED LOCKED IN LOW POSITION. EDUCATION ON PLAN OF CARE.
--- NOTE | 2019-06-05 07:59 | NUR ---
NURSE NOTES: PT AWAKE, GIVEN BREAKFAST TRAY OF CCHO, PER PM RN BG 81. EDUCATED PT ACID LOADER LIGHT. NOT GET UP WITHOUT ASSISTANCE. URINAL AT BEDSIDE. WILL MONITOR PT CLOSELY.
--- NOTE | 2019-06-05 08:08 | NUR ---
NURSE NOTES: PT C/O NAUSEA. COULD NOT EAT OATMEAL AND BREAD WAS NOT GOOD. CONSUMED SOME MILK AND SOME O.J. PT REFUSED ZOFRAN AT THIS. WILL ASSESS AGAIN AT LATER TIME.
[2019-06-05] MEDS ORDERED: Pantoprazole Inj IV SCH (09:00)
--- NOTE | 2019-06-05 11:24 | NUR ---
Social Work This SW met with patient who is currently in the ICU, who remains alert/oriented x4, independent with ADLs, ambulation. Patient explains he plans to discharge to home with his spouse, Gali ([phone]) and expressing no further needs or concerns from this SW at this time. Patient denied any substance abuse, smoking marijuana occasionally and does not want to quit. Patient denied any mental health concerns, i.e SI/HI, nor any depression/anxiety. Patient receives SSI and still driving, requesting full code, full treatment (does not have an Advance Directive, nor requesting one at this time).
--- NOTE | 2019-06-05 12:28 | NUR ---
NURSE NOTES: PT C/O OF DRY NOSE AND MOUTH ON 2L NC. SATING 99%. NC REMOVED, ON R.A [id number]%. WILL CONTINUE TO MONITOR CLOSELY. ACCU CHECK 209-4 UNITS GIVEN. ONCE PT CONSUMES LUNCH, WILL GIVE 10UNITS COVERAGE. Addendum: 06/05/19 at 1232 by Antonia Park RN ITEMS PROVIDED FOR PT TO DO HYGIENE CARE FOR SELF. TOOTH BRUSH AND MOUTH WASH, WASH CLOTHE, GOWN.
--- NOTE | 2019-06-05 15:00 | NUR ---
NURSE NOTES: LATE ENTRY: MD ESPINOZA HERE TO SEE PT. INFORMED OF LAST BG 209, INFORMED THAT NOVOLOG 10UNITS, LEVEMIR 20UNITS STANDARD. WANTS BMP IN AM. D/C MAINTENANCE FLUIDS.
--- NOTE | 2019-06-05 16:28 | NUR ---
NURSE NOTES: PT RESTING IN BED. OCCASIONAL DESATS TO 87-95%. 2L NC ON WITH HUMIDIFICATION FOR PT COMFORT. HOB>35. PT HAS NO C.O SOB OR CHEST. WILL CONTINUE TO MONITOR. CALL LIGHT IN REACH, URINAL AT BEDSIDE.
--- NOTE | 2019-06-05 16:58 | NUR ---
NURSE NOTES: called MD Field for CPT orders. pt unable to expectorate sputum. RR 30's . awaiting call back. Addendum: 06/05/19 at 1700 by Antonia Park RN wrong pt.
--- NOTE | 2019-06-05 17:14 | General Progress Note ---
Assessment/Plan Assessment/Plan: #Diabetic ketoacidosis, patient endorses not taking his usual insulin dosing #Metabolic acidosis secondary to DKA #SIRS (WBC and pulse). Leukocytosis with neutrophil shift predominance, patient has had a sore throat and cough, suspect that patient may have pneumonia but dehydration is preventing that from showing up on imaging. Rule out pneumonia. > CT A/P negative -S/p DKA protocol, admit to ICU, -Appreciate management per endocrinology -Aggressive fluid resuscitation and electrolyte repletion -n.p.o. Advance diet as tolerated -Start on Determir 20 units BID -Novolog 10 units TIDAC -SSI -Accuchecks ACHS -hypoglycemia protocol -Blood cultures, -Currently on Vanc, Zosyn, Azithromycin. Will de-escalate soon. -Repeat 2V CXR tomorrow #Acute renal injury Resolved Continue IV fluids Avoid nephrotoxins Trend creatinine #Anemia of chronic disease - CTM - no signs of bleeding #Equivocal minimal distal esophageal wall thickening, could indicate esophagitis if real. on CT. patient denies any difficulty swallowing, pain with swallowing, acid reflux, or weight loss - Continue to monitor 38 minutes spent on this encounter. Discussed with endocrinology and RN. > 50% spent on counseling and care coordination. Time of note may not reflect time patient was seen. Subjective Date patient seen: Jun 05, 2019 Allergies: Coded Allergies: No Known Allergies (Verified , 01/08/07) Subjective No acute events overnight per nursing. Anion gap closed this morning. Off insulin drip. Feels much better. Abdominal pain has resolved. Patient states that he has been noncompliant with his insulin. Denies any recent infections, cough, cold, fever, chills, chest pain, shortness of breath, nausea, vomiting, diarrhea. Review of systems: Constitutional: Denies: chills, diaphoresis, fever, malaise, weakness, other HEENT: Denies: eye pain, blurred vision, tearing, double vision, ear pain, ear discharge, nose pain, nose congestion, throat pain, throat swelling, mouth pain , mouth swelling, Cardiovascular: Denies: chest pain, edema, lightheadedness, palpitations, syncope, Respiratory: Denies: cough, orthopnea, shortness of breath, SOB with excertion , SOB at rest, sputum, stridor, wheezing, other Gastrointestinal/Abdominal: Denies: abdomen distended, abdominal pain, black stools, tarry stools, blood in stool, constipated, diarrhea, difficulty swallowing, nausea, poor appetite, poor fluid intake, rectal bleeding, vomiting , other Genitourinary: Denies: burning, discharge, frequency, flank pain, hematuria, incontinence, pain, urgency, other Neurologic/Psychiatric: Denies: anxiety, depressed, emotional problems, headache, numbness, paresthesia, pre-existing deficit, seizure, tingling, tremors, weakness, other Endocrine: Denies: excessive sweating, flushing, intolerance to cold, intolerance to heat, increased hunger, increased thirst, increased urine, unexplained weight gain, unexplained weight loss, other MSK: denies joint pains, swelling, stiffness Hematologic/Lymphatic: Denies: anemia, easy bleeding, easy bruising, other Objective Last 24 Hour Vital Signs Date Time Temp Pulse Resp B/P (MAP) Pulse Ox O2 Delivery O2 Flow Rate FiO2 06/05/19 17:00 94 17 148/85 99 Nasal Cannula 2.0 06/05/19 16:00 98.3 90 14 155/80 91 Nasal Cannula 2.0 06/05/19 16:00 Room Air 2.0 06/05/19 16:00 90 06/05/19 15:00 92 17 148/113 96 Nasal Cannula 2.0 06/05/19 14:00 90 16 137/83 93 Nasal Cannula 2.0 06/05/19 13:00 92 17 114/84 100 Nasal Cannula 2.0 06/05/19 12:00 Room Air 2.0 06/05/19 12:00 98.6 90 15 133/81 98 Room Air 06/05/19 12:00 87 06/05/19 11:00 85 16 132/71 100 Nasal Cannula 2.0 06/05/19 10:00 88 16 129/80 100 Nasal Cannula 2.0 06/05/19 09:00 89 14 134/79 100 Nasal Cannula 2.0 06/05/19 08:30 91 14 147/69 100 Nasal Cannula 2.0 06/05/19 08:17 91 11 145/82 100 Nasal Cannula 2.0 06/05/19 08:00 99 18 167/39 100 Nasal Cannula 2.0 06/05/19 08:00 Nasal Cannula 2.0 06/05/19 08:00 101 06/05/19 07:00 98.7 94 17 114/54 92 Nasal Cannula 2.0 06/05/19 06:30 102 12 06/05/19 06:30 95 17 118/76 91 Nasal Cannula 2.0 06/05/19 06:00 97 17 146/57 92 Nasal Cannula 2.0 06/05/19 05:00 94 18 136/79 98 Nasal Cannula 2.0 06/05/19 04:30 93 15 119/80 100 Nasal Cannula 2.0 06/05/19 04:00 Nasal Cannula 2.0 06/05/19 04:00 98.0 104 25 136/92 89 Nasal Cannula 2.0 06/05/19 04:00 102 06/05/19 03:30 98 16 142/75 93 Nasal Cannula 2.0 06/05/19 03:00 95 15 118/65 100 Nasal Cannula 2.0 06/05/19 02:30 97 13 108/70 100 Nasal Cannula 2.0 06/05/19 02:00 98 15 107/62 96 Nasal Cannula 2.0 06/05/19 01:30 96 16 99/60 98 Nasal Cannula 2.0 06/05/19 01:00 99 18 148/88 100 Nasal Cannula 2.0 06/05/19 00:51 14 143/93 100 Nasal Cannula 2.0 06/05/19 00:00 102 06/05/19 00:00 98.0 100 14 102/72 100 Nasal Cannula 2.0 06/05/19 00:00 Nasal Cannula 2.0 06/04/19 23:30 102 17 101/69 100 Nasal Cannula 2.0 06/04/19 23:00 109 18 115/70 100 Nasal Cannula 2.0 06/04/19 22:00 106 18 118/73 100 Nasal Cannula 2.0 06/04/19 21:13 162/94 06/04/19 21:00 106 18 162/94 100 Nasal Cannula 2.0 06/04/19 20:00 Nasal Cannula 2.0 06/04/19 20:00 111 06/04/19 20:00 98.8 108 18 176/105 100 Nasal Cannula 2.0 06/04/19 19:00 113 18 158/79 100 Nasal Cannula 2.0 06/04/19 18:00 121 18 140/85 100 Nasal Cannula 2.0 Intake and Output 06/04/19 06/05/19 19:00 07:00 Intake Total 422.054 ml 1645.7 ml Output Total 400 ml 1000 ml Balance 22.054 ml 645.7 ml IV Total 422.054 ml 1645.7 ml Output Urine Total 400 ml 1000 ml # Voids 4 1 Laboratory Tests 06/04/19 21:55: Lactic Acid Level 1.10 06/05/19 02:00: Urine Opiates Screen Negative, Urine Barbiturates Screen Negative, Phencyclidine (PCP) Screen Negative, Urine Amphetamines Screen Negative, Urine Benzodiazepines Screen Negative, Urine Cocaine Screen Negative, Urine Marijuana (THC) Screen PositiveH 06/05/19 04:35: White Blood Count 16.7H, Red Blood Count 5.51, Hemoglobin 14.1L, Hematocrit 42.9 , Mean Corpuscular Volume 78L, Mean Corpuscular Hemoglobin 25.7L, Mean Corpuscular Hemoglobin Concent 33.0, Red Cell Distribution Width 12.3, Platelet Count 260, Mean Platelet Volume 8.8, Neutrophils (%) (Auto) 70.1, Lymphocytes (% ) (Auto) 18.0L, Monocytes (%) (Auto) 9.0, Eosinophils (%) (Auto) 0.4, Basophils (%) (Auto) 2.6H, Sodium Level 139, Potassium Level 3.7, Chloride Level 105, Carbon Dioxide Level 27, Anion Gap 7, Blood Urea Nitrogen 15, Creatinine 1.0, Estimat Glomerular Filtration Rate > 60, Glucose Level 75#, Hemoglobin A1c 12.7H , Calcium Level 9.0, Phosphorus Level 2.6, Total Bilirubin 0.4, Aspartate Amino Transf (AST/SGOT) 13L, Alanine Aminotransferase (ALT/SGPT) 12, Alkaline Phosphatase 88, Total Protein 7.4, Albumin 3.1L, Globulin 4.3, Albumin/Globulin Ratio 0.7L Height (Feet): 5 Height (Inches): 9.00 Weight (Pounds): 202 Objective General: WDWN male in NAD, A&O x 4 HEENT: Normocephalic cephalic atraumatic, pupils equal round reactive to light and accommodation, nares patent and no symmetrical, no tonsillar exudates, mucous membranes moist CV: Regular rate regular rhythm, no murmurs, rubs, or gallops Pulm: Lungs clear to auscultation bilaterally. No wheezes, rhonchi, or rales GI: Soft, nontender, nondistended, bowel sounds present Neuro: CN 2-12 intact bilaterally, no focal signs. Ext: No lower extremity edema bilaterally Skin: no rashes lesions or ulcers Msk: Joints symmetrical in upper extremity and lower extremity bilaterally, no joint swelling. Lymph: No lymphadenopathy in upper extremity and lower extremity Hussein Marquis D.O. Jun 05, 2019 17:14
--- NOTE | 2019-06-05 18:51 | NUR ---
NURSE NOTES: pt c/o of indigestion during meal. chewing on carrot. raised hob 45. offered deep suction to clear possible obstruction, pt refused, sating 87-92%. will take sips of water to clear throat and encourage belch. will continue to monitor pt. closely
--- NOTE | 2019-06-05 18:55 | NUR ---
NURSE NOTES: pt had one vomiting episode. diaphoretic. mucus and pieces of carrot from dinner. refused Zofran, used yancher. sating increasing 94%. hob45.
--- NOTE | 2019-06-05 19:32 | NUR ---
HAND-OFF: Report given to Saul RENE. pt in no acute distress.
--- NOTE | 2019-06-05 19:41 | NUR ---
NURSE NOTES: SBAR from Antonia RENE. Patient is AAOX4. Able to make needs known. Currently on NC at 2L. NSR on the monitor. L 20G PIV infusing NS TKO. Patient is able to self reposition and can use urinal for urinating. Call light is within reach and bed alarm is on. Educated patient on using the call light before attempting to get out of bed, patient understood and discussed back fall precautionary measures. NAD at this time, patient is calm and collective, will continue to monitor.
[2019-06-05] MEDS: Insulin Reg 100 units Premix 100 ML IVPB SCH (19:58)
--- NOTE | 2019-06-05 20:20 | NUR ---
CASE MANAGEMENT: REVIEW 58 YEAR OLD MALE PRESENTED TO ED FROM HOME CC: ABD PAIN . VOMITING X2 DAYS SI: DKA T 98.2 HR 143 RR 21 BP 186/106 SAT 95% ROOM AIR WBC 18.6 NA 129 BUN 28 CR 1.9 GLUCOSE 775 IS: NS IVF BOLUS X1 LR IVF BOLUS X1 ZOFRAN IV X1 INSULIN R 10 UNITS X1 PEPCID IV X1 MORPHINE 4MG IV X1 NPO PATIENT ADMITTED TO ICU 06/04/2019 DCP: PATIENT IS FROM HOME
[2019-06-05] MEDS: Azithromycin 500 MG in D5W 275 ML IV SCH (20:22)
--- NOTE | 2019-06-05 20:38 | NUR ---
NURSE NOTES: Patient is having periodic moments of nausea and vomiting. 4mg of Zofran given IVP. Florence, wash cloth and suction readily available for patient at bedside. Vitals are stable, patient remains oriented and talkative at this time
--- NOTE | 2019-06-05 20:43 | NUR ---
NURSE NOTES: Called Dr. Hall business information consultant MD and endorsed to the business information consultant MD that Business Services Specialist Sales okayed with having patient transferred to [facility] floor as patient is very stable at this time. Attending business information consultant MD agreed with transfer to Med-Surg. Patient remains hemodynamically stable at this time.
[2019-06-05] MEDS ORDERED: Levemir Flexpen SUBQ SCH (21:00)
[2019-06-05] MEDS ORDERED: NovoLOG Insulin Flexpen SUBQ SCH (21:00)
--- NOTE | 2019-06-05 21:40 | NUR ---
TRANSFER TO FLOOR: Patient transferred to 4E room 411-2, Report given to . Belongings and medications given to Patient. Family and or S/O informed of transfer. Patient is stable.
[2019-06-05] MEDS ORDERED: Azithromycin 500 MG in D5W 275 ML IV SCH (22:00)
--- NOTE | 2019-06-05 22:02 | Geriatric Medicine Prog Note ---
DATE: 06/05/2019 NOTE: POOR AUDIO SUBJECTIVE: The patient is feeling better today. OBJECTIVE: VITAL SIGNS: Stable. RESPIRATORY: Clear. CARDIOVASCULAR: Regular. INV:Glucose 209. ASSESSMENT: DKA improved. PLANS<: Continue Levemir insulin 20 units q.12 h. with moderate sliding scale Novolog The patient will be transferred to lower level of care. Connor Stevenson M.D. DR: TREVER JOB#: [id number] CC: MAIA
[2019-06-05] MEDS ORDERED: Morphine Sulfate 2mg/ml Inj(IV/IM USE ONLY) IVP PRN ×2 (23:30→23:45)
--- NOTE | 2019-06-05 23:45 | Geriatric Medicine Prog Note ---
DATE: 06/04/2019 SUBJECTIVE: The patient is stable today OBJECTIVE:VS stable RESP:Clear,CVS-Regular INV:BUN 15, creatinine 1.0, and glucose 75. His hemoglobin A1c 12.7% ASSESSMENT:Diabetes Mellitus in fair control PLANS:Accuchecks QID ac and HS with mofdrate sliding scale Novolog Connor Stevenson M.D. DR: TREVER JOB#: [id number] CC: MAIA
[2019-06-06] VITALS: BP 137/93
[2019-06-06] MEDS: Vancomycin 750 MG in NS 275 ML IVPB SCH ×2 (00:20→12:14)
[2019-06-06] MEDS: NovoLOG Insulin Flexpen SUBQ SCH ×9 (00:32→20:31)
[2019-06-06 04:00] VITALS: BP 165/109
[2019-06-06] MEDS: Piperacillin/Tazobactam 3.375 GM in NS 110 ML IVPB SCH ×2 (06:04→15:13)
--- NOTE | 2019-06-06 07:10 | General Progress Note ---
Assessment/Plan Problem List: (1) DKA (diabetic ketoacidoses) ICD Codes: E11.10 - Type 2 diabetes mellitus with ketoacidosis without coma SNOMED: 03774330, 950691112 (2) Diabetes ICD Codes: E11.9 - Type 2 diabetes mellitus without complications SNOMED: 98282200 Assessment/Plan: continue Levemir 20 units bid continue Novolog 10 units ac tid continue Novolog sliding scale ac / hs Subjective Allergies: Coded Allergies: No Known Allergies (Verified , 01/08/07) All Systems: reviewed and negative except above Subjective events noted DKA resolved - transferred to med surg Item Value Date Time Benazepril HCl 20 mg 04/10/18 1800 (Lotensin) BID/ORAL 04/12/18 0909 Bedside Blood Glucose 173 mg/dl H 06/06/19 0605 Bedside Blood Glucose 174 mg/dl H 06/06/19 0032 Bedside Blood Glucose 122 mg/dl H 06/05/19 2121 Bedside Blood Glucose 200 mg/dl H 06/05/19 1721 Bedside Blood Glucose 209 mg/dl H 06/05/19 1309 Bedside Blood Glucose 81 mg/dl 06/05/19 0800 Bedside Blood Glucose 81 mg/dl 06/05/19 0630 Bedside Blood Glucose 178 mg/dl H 06/05/19 0200 Objective Last 24 Hour Vital Signs Date Time Temp Pulse Resp B/P (MAP) Pulse Ox O2 Delivery O2 Flow Rate FiO2 06/06/19 04:30 165/109 06/06/19 04:00 98.3 91 19 165/109 97 Nasal Cannula 2.0 06/06/19 00:00 98.3 102 20 137/93 99 Nasal Cannula 2.0 06/05/19 21:00 88 18 173/103 99 Nasal Cannula 2.0 06/05/19 20:00 Nasal Cannula 2.0 06/05/19 20:00 99.0 90 22 141/90 97 Nasal Cannula 2.0 06/05/19 20:00 89 06/05/19 19:05 111 18 99 Nasal Cannula 2.0 06/05/19 19:00 120 25 164/94 89 Nasal Cannula 2.0 06/05/19 18:00 96 18 152/86 99 Nasal Cannula 2.0 06/05/19 17:00 94 17 148/85 99 Nasal Cannula 2.0 06/05/19 16:00 98.3 90 14 155/80 91 Nasal Cannula 2.0 06/05/19 16:00 Room Air 2.0 06/05/19 16:00 90 06/05/19 15:00 92 17 148/113 96 Nasal Cannula 2.0 06/05/19 14:00 90 16 137/83 93 Nasal Cannula 2.0 06/05/19 13:00 92 17 114/84 100 Nasal Cannula 2.0 06/05/19 12:00 Room Air 2.0 06/05/19 12:00 98.6 90 15 133/81 98 Room Air 06/05/19 12:00 87 06/05/19 11:00 85 16 132/71 100 Nasal Cannula 2.0 06/05/19 10:00 88 16 129/80 100 Nasal Cannula 2.0 06/05/19 09:00 89 14 134/79 100 Nasal Cannula 2.0 06/05/19 08:30 91 14 147/69 100 Nasal Cannula 2.0 06/05/19 08:17 91 11 145/82 100 Nasal Cannula 2.0 06/05/19 08:00 99 18 167/39 100 Nasal Cannula 2.0 06/05/19 08:00 Nasal Cannula 2.0 06/05/19 08:00 101 Intake and Output 06/05/19 06/06/19 19:00 07:00 Intake Total 958 ml 100 ml Output Total 580 ml 300 ml Balance 378 ml -200 ml Intake Oral 590 ml 100 ml IV Total 368 ml Output Urine Total 580 ml 300 ml # Voids 3 Height (Feet): 5 Height (Inches): 9.00 Weight (Pounds): 200 General Appearance: no apparent distress Neck: normal alignment Cardiovascular: normal rate Respiratory/Chest: lungs clear Abdomen: normal bowel sounds Objective Current Medications Medications (Trade) Dose Ordered Sig/Pasha Route PRN Reason Start Time Stop Time Status Last Admin Dose Admin Acetaminophen (Tylenol) 650 mg Q4H PRN ORAL Fever 06/05/19 23:30 07/04/19 15:29 Acetaminophen (Tylenol) 650 mg Q4H PRN ORAL Mild Pain (Pain Scale 1-3) 06/05/19 23:30 07/04/19 15:29 Azithromycin 500 mg/Dextrose 275 ml @ 275 mls/hr Q24HRS IV 06/05/19 22:00 06/09/19 22:59 Barium Sulfate (Readi-Cat 2) 450 ml NOW PRN ORAL Radiology Procedure 06/06/19 21:30 07/06/19 21:29 Bisacodyl (Dulcolax) 10 mg DAILYPRN PRN RECTAL Constipation 06/06/19 15:30 07/04/19 15:29 Clonidine HCl (Catapres Tab) 0.1 mg Q6H PRN ORAL For High Blood Pressure 06/06/19 02:30 07/04/19 20:29 06/06/19 04:30 Dextrose (Dextrose 50%) 25 ml Q30M PRN IV Hypoglycemia 06/05/19 22:00 07/04/19 20:29 Dextrose (Dextrose 50%) 50 ml Q30M PRN IV Hypoglycemia 06/05/19 22:00 07/04/19 20:29 Insulin Aspart (NovoLOG) Q4HR SUBQ 06/06/19 01:00 07/05/19 06:29 06/06/19 06:04 Insulin Aspart (NovoLOG) 10 units NOVOTIAC SUBQ 06/06/19 06:30 07/05/19 06:29 06/06/19 06:05 Insulin Detemir (Levemir) 20 units EVERY 12 HOURS SUBQ 06/06/19 09:00 07/05/19 20:59 Magnesium Hydroxide (Mom) 30 ml HSPRN PRN ORAL Constipation 06/06/19 15:30 07/04/19 15:29 Morphine Sulfate (Morphine Sulfate) 1 mg Q4H PRN IVP Moderate Pain (Pain Scale 4-6) 06/05/19 23:45 06/11/19 15:29 Morphine Sulfate (Morphine Sulfate) 2 mg Q4H PRN IVP Severe Pain (Pain Scale 7-10) 06/05/19 23:30 06/11/19 15:29 Ondansetron HCl (Zofran) 4 mg Q6H PRN IVP Nausea & Vomiting 06/06/19 00:00 07/04/19 17:59 Pantoprazole (Protonix) 40 mg DAILY IV 06/06/19 09:00 07/05/19 08:59 Piperacillin Sod/ Tazobactam Sod 3.375 gm/Sodium Chloride 110 ml @ 27.5 mls/hr EVERY 8 HOURS IVPB 06/05/19 22:00 06/10/19 21:59 06/06/19 06:04 Vancomycin HCl (Vanco rx to dose) 1 ea DAILY PRN MISC Per rx protocol 06/06/19 09:00 07/04/19 21:59 Vancomycin HCl 750 mg/Sodium Chloride 275 ml @ 184 mls/hr Q12H IVPB 06/06/19 00:00 06/10/19 00:00 06/06/19 00:20 Clifton Rodríguez MD Jun 06, 2019 07:10
--- NOTE | 2019-06-06 07:22 | NUR ---
HAND-OFF: Report given to EDGARD Sheldon.
--- NOTE | 2019-06-06 07:24 | NUR ---
NURSE NOTES: Report received from Nettie RENE. Patient is currently asleep, but endorsed that patient is normally awake and alert x 4. Patient currently on 2 liters of oxygen. Will continue to monitor blood glucose levels. Call light within reach. Bed locked and in lowest position. Will continue to follow plan of care.
[2019-06-06 07:26] LABS: WHITE BLOOD COUNT 10.1 K/UL (4.8-10.8)
[2019-06-06 07:27] LABS: BASOPHILS % (AUTO) 2.3 % (0.0-2.0); EOSINOPHILS % (AUTO) 0.4 % (0.0-3.0); HEMATOCRIT 42.8 % (42.0-52.0); LYMPHOCYTES % (AUTO) 16.8 % (20.0-45.0); MEAN CORPUSCULAR VOLUME 79 FL (80-99); MONOCYTES % (AUTO) 7.4 % (1.0-10.0); NEUTROPHILS % (AUTO) 73.2 % (45.0-75.0); PLATELET COUNT 241 K/UL (150-450); RED BLOOD COUNT 5.43 M/UL (4.70-6.10); RED CELL DISTRIBUTION WIDTH 12.1 % (11.6-14.8)
[2019-06-06 07:43] LABS: ANION GAP 12 mmol/L (5-15); BLOOD UREA NITROGEN 9 mg/dL (7-18); CALCIUM 9.1 MG/DL (8.5-10.1); CARBON DIOXIDE 25 MMOL/L (21-32); CHLORIDE 100 MMOL/L (98-107); CREATININE 0.7 MG/DL (0.55-1.30); PHOSPHORUS 2.4 MG/DL (2.5-4.9); POTASSIUM 4.4 MMOL/L (3.5-5.1); SODIUM 137 MMOL/L (136-145)
[2019-06-06 08:00] VITALS: BP 115/72
[2019-06-06] MEDS ORDERED: Pantoprazole Inj IV SCH (09:00)
--- NOTE | 2019-06-06 09:37 | NUR ---
RADIOLOGY DEPT., CHEST X-RAY DONE.-.P.DYE
[2019-06-06] MEDS: Levemir Flexpen SUBQ SCH ×2 (09:52→20:34)
[2019-06-06 12:00] VITALS: BP 118/79
[2019-06-06] MEDS: Lisinopril 10mg tab ORAL SCH (12:30)
[2019-06-06] MEDS: Aspirin Baby 81mg ORAL SCH (12:48)
[2019-06-06] MEDS ORDERED: Sodium Phosphate 15 MM in NS 275 ML IVPB ONE (13:00)
--- NOTE | 2019-06-06 13:34 | NUR ---
CASE MANAGEMENT:REVIEW SI;DKA 98.3 102 19 165/109 97% 2L NC BG 175 IS;VANCOMYCIN IV Q12 HRS NA PHOSPHATE IV ONCE LEVEMIR SUBQ Q12 HRS CLONIDINE PO Q6 HRS PRN ZITHROMAX IV Q24 HRS ZOSYN IV Q8 HRS MED SURG STATUS DCP;FROM HOME
--- NOTE | 2019-06-06 15:08 | Diagnostic Imaging Report ---
Indication: Cough Technique: One view of the chest Comparison: 06/04/2019 Findings: Lungs and pleural spaces are clear. Heart size is normal. Surgical clips are seen in the left supraclavicular fossa. There is no significant interim change Impression: No acute process
[2019-06-06] MEDS ORDERED: Milk of Magnesia 30ml Ud ORAL PRN (15:30)
[2019-06-06 16:00] VITALS: BP 137/87
--- NOTE | 2019-06-06 17:05 | NUR ---
NURSE NOTES:WOUND CARE NOTES:Pt presented on admission with fissures plantar L foot. Pt stated sometimes painful to bear weight on L foot. No erythema, exudate or fluctuance noted. Pt educated on diabetic foot care. Advised to apply emolient base lotion or mineral based oil heel and plantar aspect post showers while skin is damp and to avoid applying moisturizers between toes.Instructed to wear clean cotton socks daily. Pt also instructed to check both feet daily . Instructed to follow-up with podiatry in community if he notices any exudate or erythema at affected area or if pain worsens while ambulating.Both feet moisturized and non-skid socks placed on both feet.
[2019-06-06] MEDS ORDERED: Vancomycin 1 GM in NS 275 ML IVPB SCH (18:00)
[2019-06-06] MEDS ORDERED: Tubing IV Secondary IV ONE (18:50)
[2019-06-06] MEDS ORDERED: NS 275ml ONE (18:50)
--- NOTE | 2019-06-06 19:18 | NUR ---
HAND-OFF: Report given to Nettie RENE. Patient in stable condition.
[2019-06-06 20:00] VITALS: BP 131/84
--- NOTE | 2019-06-06 20:00 | NUR ---
NURSE NOTES: Received patient awake in bed, able to make needs known, no c/o pain at this time. IV line intact and patent. No SOB or acute distress. HOB elevated. 2 side rails up. Patient stated "I am feeling much better today!".
--- NOTE | 2019-06-06 20:07 | General Progress Note ---
Assessment/Plan Assessment/Plan: #Diabetic ketoacidosis, patient endorses not taking his usual insulin dosing #diabetes mellitus type 2 #Metabolic acidosis secondary to DKA #SIRS (WBC and pulse). LIkely 2/2 DKA. No source of infection identified. CXR, urine, blood cultures negative. No lines, no rashes. > CT A/P negative -S/p DKA protocol, admit to ICU, -Appreciate endocrinology recommendations -Aggressive fluid resuscitation and electrolyte repletion -Advance diet as tolerated -Continue on Determir 20 units BID -Novolog 10 units TIDAC -SSI -Accuchecks ACHS -hypoglycemia protocol -Blood cultures: NGTD -Discontinue Vanc, Zosyn, Azithromycin. -Repeat CXR Negative #Acute renal injury Resolved Continue IV fluids Avoid nephrotoxins Trend creatinine #Anemia of chronic disease - CTM - no signs of bleeding #Equivocal minimal distal esophageal wall thickening, could indicate esophagitis if real. on CT. patient denies any difficulty swallowing, pain with swallowing, acid reflux, or weight loss - Continue to monitor #hypophosphatemia -replete PRN 38 minutes spent on this encounter. Discussed with endocrinology and RN. > 50% spent on counseling and care coordination. Time of note may not reflect time patient was seen. Subjective Allergies: Coded Allergies: No Known Allergies (Verified , 01/08/07) Subjective No acute events overnight per nursing. Anion gap closed this morning. Blood sugars improved. Abdominal pain resolved. Denies any recent infections, cough, cold, fever, chills, chest pain, shortness of breath, nausea, vomiting, diarrhea , or dysuria. . Review of systems: As of 06/06/19 Constitutional: Denies: chills, diaphoresis, fever, malaise, weakness, other HEENT: Denies: eye pain, blurred vision, tearing, double vision, ear pain, ear discharge, nose pain, nose congestion, throat pain, throat swelling, mouth pain , mouth swelling, Cardiovascular: Denies: chest pain, edema, lightheadedness, palpitations, syncope, Respiratory: Denies: cough, orthopnea, shortness of breath, SOB with excertion , SOB at rest, sputum, stridor, wheezing, other Gastrointestinal/Abdominal: Denies: abdomen distended, abdominal pain, black stools, tarry stools, blood in stool, constipated, diarrhea, difficulty swallowing, nausea, poor appetite, poor fluid intake, rectal bleeding, vomiting , other Genitourinary: Denies: burning, discharge, frequency, flank pain, hematuria, incontinence, pain, urgency, other Neurologic/Psychiatric: Denies: anxiety, depressed, emotional problems, headache, numbness, paresthesia, pre-existing deficit, seizure, tingling, tremors, weakness, other Endocrine: Denies: excessive sweating, flushing, intolerance to cold, intolerance to heat, increased hunger, increased thirst, increased urine, unexplained weight gain, unexplained weight loss, other MSK: denies joint pains, swelling, stiffness Hematologic/Lymphatic: Denies: anemia, easy bleeding, easy bruising, other Objective Last 24 Hour Vital Signs Date Time Temp Pulse Resp B/P (MAP) Pulse Ox O2 Delivery O2 Flow Rate FiO2 06/06/19 18:40 Nasal Cannula 2.0 06/06/19 16:00 99.1 79 18 137/87 97 Nasal Cannula 2.0 06/06/19 12:30 118/79 06/06/19 12:00 97.9 83 18 118/79 99 Nasal Cannula 2.0 06/06/19 09:00 Nasal Cannula 2.0 06/06/19 08:00 97.5 89 17 115/72 99 Nasal Cannula 2.0 06/06/19 04:30 165/109 06/06/19 04:00 98.3 91 19 165/109 97 Nasal Cannula 2.0 06/06/19 00:00 98.3 102 20 137/93 99 Nasal Cannula 2.0 06/05/19 21:00 88 18 173/103 99 Nasal Cannula 2.0 Intake and Output 06/05/19 06/06/19 19:00 07:00 Intake Total 958 ml 100 ml Output Total 580 ml 300 ml Balance 378 ml -200 ml Intake Oral 590 ml 100 ml IV Total 368 ml Output Urine Total 580 ml 300 ml # Voids 3 Laboratory Tests 06/06/19 06:15: White Blood Count 10.1, Red Blood Count 5.43, Hemoglobin 14.0L, Hematocrit 42.8 , Mean Corpuscular Volume 79L, Mean Corpuscular Hemoglobin 25.8L, Mean Corpuscular Hemoglobin Concent 32.8, Red Cell Distribution Width 12.1, Platelet Count 241, Mean Platelet Volume 9.1, Neutrophils (%) (Auto) 73.2, Lymphocytes (% ) (Auto) 16.8L, Monocytes (%) (Auto) 7.4, Eosinophils (%) (Auto) 0.4, Basophils (%) (Auto) 2.3H, Sodium Level 137, Potassium Level 4.4, Chloride Level 100, Carbon Dioxide Level 25, Anion Gap 12, Blood Urea Nitrogen 9, Creatinine 0.7, Estimat Glomerular Filtration Rate > 60, Glucose Level 175#H, Calcium Level 9.1 , Phosphorus Level 2.4L, Magnesium Level 1.9 06/06/19 11:15: Vancomycin Level Trough 4.7L Height (Feet): 5 Height (Inches): 9.00 Weight (Pounds): 200 Objective As of 06/06/19 General: WDWN male in NAD, A&O x 4 HEENT: Normocephalic cephalic atraumatic, pupils equal round reactive to light and accommodation, nares patent and no symmetrical, no tonsillar exudates, mucous membranes moist CV: Regular rate regular rhythm, no murmurs, rubs, or gallops Pulm: Lungs clear to auscultation bilaterally. No wheezes, rhonchi, or rales GI: Soft, nontender, nondistended, bowel sounds present Neuro: CN 2-12 intact bilaterally, no focal signs. Ext: No lower extremity edema bilaterally Skin: no rashes lesions or ulcers Msk: Joints symmetrical in upper extremity and lower extremity bilaterally, no joint swelling. Lymph: No lymphadenopathy in upper extremity and lower extremity Hussein Marquis D.O. Jun 06, 2019 20:07
[2019-06-06] MEDS ORDERED: Atorvastatin 20mg tab ORAL SCH (21:00)
[2019-06-07] VITALS: BP 137/88
[2019-06-07] MEDS: NovoLOG Insulin Flexpen SUBQ SCH ×5 (00:32→12:39)
[2019-06-07 04:00] VITALS: BP 141/88
--- NOTE | 2019-06-07 06:58 | General Progress Note ---
Assessment/Plan Problem List: (1) DKA (diabetic ketoacidoses) ICD Codes: E11.10 - Type 2 diabetes mellitus with ketoacidosis without coma SNOMED: 67404159, 827188133 (2) Diabetes ICD Codes: E11.9 - Type 2 diabetes mellitus without complications SNOMED: 70271166 Assessment/Plan: reduce Levemir to 15 units bid reduce Novolog to 8 units ac tid continue Novolog sliding scale ac / hs Subjective Allergies: Coded Allergies: No Known Allergies (Verified , 01/08/07) Subjective events noted mild hypoglycemia this morning Item Value Date Time Bedside Blood Glucose 64 mg/dl L 06/07/19 0605 Bedside Blood Glucose 83 mg/dl 06/07/19 0032 Bedside Blood Glucose 82 mg/dl 06/06/19 2034 Bedside Blood Glucose 181 mg/dl H 06/06/19 1702 Bedside Blood Glucose 109 mg/dl 06/06/19 1202 Bedside Blood Glucose 175 mg/dl H 06/06/19 0952 Bedside Blood Glucose 173 mg/dl H 06/06/19 0605 Objective Last 24 Hour Vital Signs Date Time Temp Pulse Resp B/P (MAP) Pulse Ox O2 Delivery O2 Flow Rate FiO2 06/07/19 04:00 97.9 78 18 141/88 97 Nasal Cannula 2.0 06/07/19 00:00 97.4 85 18 137/88 97 Nasal Cannula 2.0 06/06/19 20:00 97.5 91 18 131/84 97 Nasal Cannula 2.0 06/06/19 18:40 Nasal Cannula 2.0 06/06/19 16:00 99.1 79 18 137/87 97 Nasal Cannula 2.0 06/06/19 12:30 118/79 06/06/19 12:00 97.9 83 18 118/79 99 Nasal Cannula 2.0 06/06/19 09:00 Nasal Cannula 2.0 06/06/19 08:00 97.5 89 17 115/72 99 Nasal Cannula 2.0 Intake and Output 06/06/19 06/07/19 19:00 07:00 Intake Total 720.000 ml 720 ml Output Total 1500 ml Balance 720.000 ml -780 ml Intake Oral 720 ml IV Total 720.000 ml Output Urine Total 1500 ml # Voids 6 # Bowel Movements 1 Laboratory Tests 06/06/19 11:15: Vancomycin Level Trough 4.7L Height (Feet): 5 Height (Inches): 9.00 Weight (Pounds): 195 General Appearance: no apparent distress Neck: normal alignment Cardiovascular: normal rate Respiratory/Chest: lungs clear Abdomen: normal bowel sounds Objective Current Medications Medications (Trade) Dose Ordered Sig/Pasha Route PRN Reason Start Time Stop Time Status Last Admin Dose Admin Acetaminophen (Tylenol) 650 mg Q4H PRN ORAL Fever 06/05/19 23:30 07/04/19 15:29 06/06/19 12:15 Acetaminophen (Tylenol) 650 mg Q4H PRN ORAL Mild Pain (Pain Scale 1-3) 06/05/19 23:30 07/04/19 15:29 Aspirin (ASA) 81 mg DAILY ORAL 06/06/19 12:30 07/06/19 12:29 06/06/19 12:48 Atorvastatin Calcium (Lipitor) 20 mg BEDTIME ORAL 06/06/19 21:00 07/06/19 20:59 06/06/19 20:34 Barium Sulfate (Readi-Cat 2) 450 ml NOW PRN ORAL Radiology Procedure 06/06/19 21:30 07/06/19 21:29 Bisacodyl (Dulcolax) 10 mg DAILYPRN PRN RECTAL Constipation 06/06/19 15:30 07/04/19 15:29 Clonidine HCl (Catapres Tab) 0.1 mg Q6H PRN ORAL For High Blood Pressure 06/06/19 02:30 07/04/19 20:29 06/06/19 04:30 Dextrose (Dextrose 50%) 25 ml Q30M PRN IV Hypoglycemia 06/05/19 22:00 07/04/19 20:29 Dextrose (Dextrose 50%) 50 ml Q30M PRN IV Hypoglycemia 06/05/19 22:00 07/04/19 20:29 Insulin Aspart (NovoLOG) Q4HR SUBQ 06/06/19 01:00 07/05/19 06:29 06/06/19 17:02 Insulin Aspart (NovoLOG) 10 units NOVOTIAC SUBQ 06/06/19 06:30 07/05/19 06:29 06/06/19 17:02 Insulin Detemir (Levemir) 20 units EVERY 12 HOURS SUBQ 06/06/19 09:00 07/05/19 20:59 06/06/19 20:34 Lisinopril (ZestriL) 10 mg DAILY ORAL 06/06/19 12:30 07/06/19 12:29 Magnesium Hydroxide (Mom) 30 ml HSPRN PRN ORAL Constipation 06/06/19 15:30 07/04/19 15:29 Morphine Sulfate (Morphine Sulfate) 1 mg Q4H PRN IVP Moderate Pain (Pain Scale 4-6) 06/05/19 23:45 06/11/19 15:29 Morphine Sulfate (Morphine Sulfate) 2 mg Q4H PRN IVP Severe Pain (Pain Scale 7-10) 06/05/19 23:30 06/11/19 15:29 Ondansetron HCl (Zofran) 4 mg Q6H PRN IVP Nausea & Vomiting 06/06/19 00:00 07/04/19 17:59 Pantoprazole (Protonix) 40 mg DAILY ORAL 06/06/19 12:30 07/06/19 12:29 06/06/19 12:48 Clifton Rodríguez MD Jun 07, 2019 06:58
--- NOTE | 2019-06-07 07:10 | NUR ---
NURSE NOTES: handoff received from EDGARD Sheffield. Patient received awake and alert and oriented x4, able to make needs known, no acute signs of distress noted. Patient has call light within reach and bed in the low and locked position. Patient IV site is left forearm 20g saline locked. No complaints of any pain at this time. patient has 2 liters nasal cannula as needed but currently on room air. will continue to monitor patient.
[2019-06-07 07:16] LABS: BASOPHILS % (AUTO) 1.9 % (0.0-2.0); EOSINOPHILS % (AUTO) 2.9 % (0.0-3.0); HEMATOCRIT 42.8 % (42.0-52.0); LYMPHOCYTES % (AUTO) 43.7 % (20.0-45.0); MEAN CORPUSCULAR VOLUME 79 FL (80-99); MONOCYTES % (AUTO) 11.9 % (1.0-10.0); NEUTROPHILS % (AUTO) 39.6 % (45.0-75.0); PLATELET COUNT 242 K/UL (150-450); RED BLOOD COUNT 5.43 M/UL (4.70-6.10); RED CELL DISTRIBUTION WIDTH 12.4 % (11.6-14.8); WHITE BLOOD COUNT 7.3 K/UL (4.8-10.8)
--- NOTE | 2019-06-07 07:39 | NUR ---
HAND-OFF: Report given to EDGARD Najera.
[2019-06-07 07:43] LABS: ANION GAP 12 mmol/L (5-15); BLOOD UREA NITROGEN 6 mg/dL (7-18); CALCIUM 8.8 MG/DL (8.5-10.1); CARBON DIOXIDE 25 MMOL/L (21-32); CHLORIDE 104 MMOL/L (98-107); CREATININE 0.8 MG/DL (0.55-1.30); PHOSPHORUS 3.1 MG/DL (2.5-4.9); POTASSIUM 3.5 MMOL/L (3.5-5.1); SODIUM 141 MMOL/L (136-145)
[2019-06-07 08:00] VITALS: BP 144/99
[2019-06-07] MEDS ORDERED: Levemir Flexpen SUBQ SCH (09:00)
[2019-06-07] MEDS: Aspirin Baby 81mg ORAL SCH (09:41)
[2019-06-07] MEDS: Lisinopril 10mg tab ORAL SCH (09:41)
[2019-06-07] MEDS ORDERED: NovoLOG Insulin Flexpen SUBQ SCH (11:50)
[2019-06-07 12:00] VITALS: BP 145/96
--- NOTE | 2019-06-07 12:09 | Discharge Instructions ---
Discharge Instructions Discharge Instructions Diet: diabetic calorie control Resume Normal Activity?: Yes Activity: resume normal activities, no restrictions Follow Up Orders Follow up with your PCP within one week Follow up with your restaurant worker within 1-2 weeks. Or follow up with Dr. Clifton Rodríugez (restaurant worker who saw you here). Check your blood sugars before each meal and bring log to PCP. Check blood sugar if you feel you have low blood sugar such as palpitations, dizziness. Drink juice and recheck in 30 minutes Call doctor if blood sugar <70 or persistently >200 Stay hydrated. Take all medications as prescribed Hussein Marquis D.O. Jun 07, 2019 12:09
[2019-06-07] MEDS ORDERED: NOVOLOG100 UNITS1 SUBQ (12:48)
--- NOTE | 2019-06-07 14:13 | NUR ---
NURSE NOTES: Patient discharged and left with niece in private vehicle. Patient left stable and ambulating, accompanied patient to the exit. Patient signed the belongings list and discharge paperwork. Patient informed to follow up with primary care physician within 7 days of discharge, Patient stated he has an appointment on Wednesday. Provided patient with Dr Rodríguez contacted number as his requested credit front office developer. Patient educated on signs and symptoms that require immediate medical attention. Patient IV removed, no bleeding or hematoma noted. Patient educated by MD on new insulin prescription.
--- NOTE | 2019-06-07 14:56 | NUR ---
*-* INSURANCE *-*- ALL CLINICALS AND REVIEWS HAVE BEEN FAXED TO: MARY JANE/LINETTE NO HAMMER FITTER ASSIGNED AT THIS TIME PLEASE FAX THE REVIEW/CLINICAL P- [phone] F- [phone]....REVIEW/CLINICAL
--- NOTE | 2019-06-07 23:01 | Discharge Summary ---
Discharge Summary Hospital Course Date of Admission Jun 04, 2019 at 14:06 Date of Discharge Jun 07, 2019 at 14:15 Admitting Diagnosis DKA HPI Caden Jayesh Cortez is a 58 year old male who was admitted on Jun 04, 2019 at 14:06 for Diabetic Ketoacidosis Consultations Endocrinology Hospital Course This is a 58-year-old male with a past medical history of diabetes mellitus type 2 currently on home insulin, diagnosed when he was an adult, and a past medical history of high blood pressure, denies history of heart attack or stroke , who presents emergency room after being sent here for abnormal labs per patient. He states that he has been taking less of his insulin at home than he usually does because he has not been feeling well for the past couple days and his doctor told him to decrease the dosing. However upon arrival today patient is found to be in diabetic ketoacidosis with an elevated blood acetone level and also an anion gap with metabolic acidosis. Patient has been admitted to the ICU on DKA drip protocol and endocrinology has been consulted. Patient is also complaining of a sore throat and a cough and he does have leukocytosis which may be reactive however will place him on Zosyn IV as he does have neutrophil predominance. Chest x-ray and abdominal x-ray noted. Chest x-ray was negative. Patient continued to have abdominal pain and a CT abdomen pelvis was performed which was negative for any acute disease. The patient was admitted from to the ICU on DKA protocol. Anion gap was closed and he was transitioned to subcu insulin. His blood sugars were improved. Anion gap closed. Patient transition to diabetic diet. Blood cultures remain negative. No source of infection identified. Antibiotics were discontinued. The patient was medically stable on discharge she was discharged home. He needs follow-up with endocrinology in 1 to 2 weeks and PCP within 1 week 37 minutes spent on this encounter. Discussed with endocrinology and RN. > 50% spent on counseling and care coordination. Time of note may not reflect time patient was seen. Discharge Condition Upon Discharge: stable Discharge Vital Signs Last Vital Signs Date Time Temp Pulse Resp B/P (MAP) Pulse Ox O2 Delivery O2 Flow Rate FiO2 06/07/19 12:00 98.4 79 18 145/96 100 Room Air 06/07/19 09:00 2.0 Discharge Disposition Patient was discharged to home Discharge Diagnoses: (1) SIRS (systemic inflammatory response syndrome) (2) DKA (diabetic ketoacidoses) (3) Diabetes (4) Abdominal pain (5) Encounter for generalized patient complaints (6) Enlarged prostate (7) Hypokalemia (8) Hypophosphatemia Discharge Instructions Discharge Instructions Activity: resume normal activities, no restrictions Hussein Marquis D.O. Jun 07, 2019 23:01
--- NOTE | 2019-06-08 16:32 | NUR ---
*-* INSURANCE *-*- ALL CLINICALS AND REVIEWS HAVE BEEN FAXED TO: MARY JANE/LINETTE NO SMOOTH STUCCO RESURFACER ASSIGNED AT THIS TIME PLEASE FAX THE REVIEW/CLINICAL P- [phone] F- [phone]....REVIEW/CLINICAL
== END 2019-06-07 14:15 | disposition home or self-care (01) | DRG 420 ==
LOC: EMR 11:15 → EDBEDREQSVC 11:15 → EDBEDREQ 11:15 → ICU 14:06 → 4E 06-05 21:47
DX: E11.10 Type 2 diabetes mellitus with ketoacidosis without coma (principal); R65.11 Systemic inflammatory response syndrome (SIRS) of non-infectious origin with acute organ dysfunction; N17.9 Acute kidney failure, unspecified; D63.8 Anemia in other chronic diseases classified elsewhere; E83.39 Other disorders of phosphorus metabolism
CPT/HCPCS: 36415; 71045; 74018; 74176; 80048; 80053; 80202; 80307; 81003; 82009; 82553; 82803; 82962; 83036; 83605; 83690; 83735; 84100; 84484; 85007; 85025; 86710; 87040; 87081; 93005; 96361; 96365; 96375; 99291; 99292; G0480; J1815; J2405; J7030; J8499; S5561

== ENCOUNTER 2020-02-23 01:33 | Emergency (ER) | payer OTHER ==
[~2020-02-23] VITALS: Ht 172.7 cm; Wt 81.6 kg
[2020-02-23 01:45] VITALS: BP 141/89
[2020-02-23] MEDS ORDERED: Pantoprazole Inj IV ONE (01:45)
[2020-02-23 02:15] LABS: APPEARANCE,URINE CLEAR; BASOPHILS % (AUTO) 2.4 % (0.0-2.0); BILIRUBIN, URINE NEGATIVE (NEGATIVE); COLOR,URINE PALE YELLOW; GLUCOSE, URINE (UA) 4+ (NEGATIVE); HEMATOCRIT 58.5 % (42.0-52.0); HEMOGLOBIN 17.3 G/DL (14.2-18.0); KETONES,URINE 3+ (NEGATIVE); LEUKOCYTE ESTERASE ,URINE NEGATIVE (NEGATIVE); LYMPHOCYTES % (AUTO) 11.2 % (20.0-45.0); MEAN CORPUSCULAR VOLUME 88 FL (80-99); MONOCYTES % (AUTO) 4.7 % (1.0-10.0); NEUTROPHILS % (AUTO) 81.8 % (45.0-75.0); NITRITE,URINE NEGATIVE (NEGATIVE); PH,URINE 5 (4.5-8.0); PLATELET COUNT 298 K/UL (150-450); PROTEIN,URINE 2+ (NEGATIVE); RED BLOOD COUNT 6.62 M/UL (4.70-6.10); RED CELL DISTRIBUTION WIDTH 13.9 % (11.6-14.8); UROBILINOGEN,URINE NORMAL MG/DL (0.0-1.0); WHITE BLOOD COUNT 12.6 K/UL (4.8-10.8)
[2020-02-23 02:28] LABS: ALBUMIN/GLOBULIN RATIO 0.9 (1.0-2.7); BILIRUBIN,TOTAL 0.6 MG/DL (0.2-1.0); CALCIUM 9.8 MG/DL (8.5-10.1); CREATININE 2.3 MG/DL (0.55-1.30); POTASSIUM 4.4 MMOL/L (3.5-5.1)
[2020-02-23] MEDS ORDERED: METOPROLOL SUCC50 MG ORAL (02:53)
[2020-02-23] MEDS ORDERED: Insulin Reg 100 units Premix 100 ML IV SCH (03:00)
[2020-02-23] MEDS ORDERED: Insulin Human Regular 100units/ml 3ml IV ONE (03:00)
[2020-02-23] MEDS ORDERED: Insulin Reg 100 units Premix 100 ML IVPB SCH (03:15)
--- NOTE | 2020-02-23 03:19 | Emergency Room Report ---
History of Present Illness General Chief Complaint: Abnormal Labs Source: Patient Present Illness HPI 59-year-old -[place] male with past medical history of insulin-dependent diabetes presents by ambulance with complaint of high sugar. He endorses polyuria, polydipsia, dry mouth, nausea, vomiting. He states he has history of DKA He has reportedly been compliant with his medications. Denies recent illness, fever, chills, chest pain, cough, dysuria, melena, hematochezia, diarrhea, recent travel or sick contacts. The patient's symptoms were gradual onset, severity was moderate, duration since 1 day. Quality: Vomiting Past medical history: Insulin-dependent diabetes Past surgical history: Neck surgery Smoking: Denies Alcohol use: Denies Drug use: Marijuana Review of systems: CONST: No fevers; positive chills, No night sweats PULMONARY: No productive cough, No shortness of breath CARDIAC: No chest pain, No palpitations GI: ++ vomiting, ++ diarrhea , No melena_or_BRBPR : No dysuria, No hematuria, No discharge NEURO: No new_focal_weakness_or_numbness, No confusion, No vision changes 14 point Review of Systems is otherwise negative except per HPI Physical Exam: GENERAL: Awake_alert_ nontoxic, no acute distress Spo2 98% on RA -normal Actively vomiting. Dry heaving. EYES: Extraocular muscles are intact. Conjunctivae clear. Lids without swelling ENT: External nose and ear normal_in_appearance. Oropharynx clear. Head_atraumatic, Moist_oral_mucosa NECK: No JVD. No meningismus. No thyromegaly. Supple. Trachea midline RESP: Kussmaul respirations. Symmetric rise. No stridor. Clear_to_auscultation_No_rales_No_wheezes CARDIAC: Tachycardic and regular rhytm. No_significant pedal edema. ABDOMEN: Soft. Nondistended. Nontender_No_rebound_or_guarding. MSK: Normal muscle tone, without rigidity. Extremities without asymmetric deformity or swelling. SKIN: Warm and dry. No visible cyanosis or pallor NEUROLOGIC: Alert, oriented x3. Motor_and_sensation_grossly_intact. No truncal ataxia. Gait_normal Psych: Normal mood and affect, normal judgment and insight - COORDINATION OF CARE Case was discussed with: Patient , Patient's Physician Any labs and imaging that were ordered were interpreted as part of the medical decision making: Medical Decision Making/Plan: Differential diagnosis for the patients symptoms include DKA, HHS, acute anemia, severe dehydration, electrolyte abnormalities, among others. Patient's exam is consistent with DKA. Blood sugar was read as "high" on arrival. Anion gap is 30. pH is 7.2. Bicarb is 14. Hemoglobin A1c is 9.3 CXR shows no acute disease. Covid is negative In ER, patient was given regular insulin 8 units IV followed by insulin drip. Also received NS 2 L IV and antiemetic control. Will admit to ICU Patient is capitated by insurance to [facility]. The patient has been stabilized to the best of this emergency department's capabilities. Given the patient's medical needs, appropriate facilities for transfer were discussed and the decision has been made to transfer this patient to [facility]. The receiving facility has the capacity and capabilities to provide care for the patient. I spoke with Dr Mayorga who accepted the patient in transfer. The patient has been informed and updated of their current clinical status. The patient has given verbal consent for the transfer. The risks and benefits were explained and the patient verbalizes their understanding. Dr Mayorga will admit the patient for further care and evaluation, and assume care of the patient at this time. Allergies: Coded Allergies: No Known Allergies (Verified , 01/08/07) COVID-19 Screening Contact w/high risk pt: No Experienced COVID-19 symptoms?: No COVID-19 Testing performed FIELD EVIDENCE TECHNICIAN: No Nursing Documentation-PMH Past Medical History: No History, Except For Hx Cardiac Problems: Yes - HTN Hx Hypertension: Yes - hyperlipidemia Hx Diabetes: Yes - DM II Hx Cancer: No Hx Gastrointestinal Problems: No Hx Neurological Problems: No Physical Exam Vital Signs Date Time Temp Pulse Resp B/P (MAP) Pulse Ox O2 Delivery O2 Flow Rate FiO2 02/23/20 01:24 98.1 139 16 138/86 (103) 100 Room Air Sp02 EP Interpretation: reviewed, normal Procedures Critical Care Time Critical Care Time Critical Care Statement Organ systems at risk include: GI, circulatory, endocrine Critical care performed for 45 minutes. Time is exclusive of separately billable procedures. Time includes: direct patient care, continuous monitoring and multiple patient reassessment, coordination of patient care, review of patient's medical records, medical consultation, family consultation regarding treatment decisions and documentation of patient care. Medical Decision Making Diagnostic Impression: Primary Impression: DKA (diabetic ketoacidoses) Additional Impressions: Diabetes Hyperglycemia Hyperlipidemia Metabolic acidosis Vomiting EKG Diagnostic Results Troponin ordered: No Rhythm Strip Diag. Results Rhythm Strip Time: 03:19 Rate: 92 Rhythm: NSR, no PVC's, no ectopy Chest X-Ray Diagnostic Results Chest X-Ray Diagnostic Results : ETTA Scribe Text Chest X-Ray: Views: 1 view(s) Indication: Nausea Findings: Normal heart size. Mediastinum normal. No infiltrate. Impression: No acute disease The X-ray(s) were independently viewed and interpreted contemporaneously Electronically signed by Estefanía walls DO Reevaluation Time: 03:19 Last Vital Signs Date Time Temp Pulse Resp B/P (MAP) Pulse Ox O2 Delivery O2 Flow Rate FiO2 02/23/20 01:45 98.5 92 16 141/89 100 Room Air Status: improved Disposition: ADMITTED INPATIENT - [facility] Admit Decision Time: 03:19 Condition: Stable Referrals: [facility],REFERRING (PCP) Estefanía Waller D.O. Feb 23, 2020 03:19
[2020-02-23 03:49] VITALS: BP 160/59
[2020-02-23 04:02] VITALS: BP 152/68
[2020-02-23] MEDS ORDERED: Labetalol 5mg/ml 20ml vial IV ONE (04:30)
[2020-02-23] MEDS ORDERED: DiphenhydrAMINE 50mg/ml Inj IVP ONE (04:30)
[2020-02-23] MEDS ORDERED: Metoclopramide 10mg/2ml Inj IVP ONE (04:30)
[2020-02-23 05:46] VITALS: BP 153/93
[2020-02-23 08:35] VITALS: BP 135/87
--- NOTE | 2020-02-23 14:54 | Diagnostic Imaging Report ---
Indication: Cough Technique: One view of the chest Comparison: 06/06/2019 Findings: The aorta is tortuous and ectatic. The heart size is normal. The lungs and pleural spaces are clear Impression: No acute process
--- NOTE | 2020-02-25 14:55 | Cardiology Report ---
APPROVED REPORT EKG Measurement Heart [id number] <Conclusion> Sinus tachycardia with premature atrial complexes Possible Left atrial enlargement Nonspecific T wave abnormality Abnormal ECG
== END 2020-02-23 08:35 | disposition short-term general hospital (02) ==
LOC: EDBD 01:33 → EMR 01:49 → EDBEDREQSVC 04:41 → EMR 08:35
DX: E11.10 Type 2 diabetes mellitus with ketoacidosis without coma (principal); E78.5 Hyperlipidemia, unspecified; R11.10 Vomiting, unspecified; E87.2 Acidosis; Z79.4 Long term (current) use of insulin; I10 Essential (primary) hypertension
CPT/HCPCS: 36415; 71045; 80053; 81003; 82010; 82803; 82962; 83036; 83690; 84484; 85025; 85610; 85730; 93005; 96361; 96365; 96375; J1200; J1815; J1817; J2405; J2765; J3480; S0164; U0002; Z7502; 99291